=== PATIENT | female | born 1940 | race Caucasian/White ===

== ENCOUNTER → 2017-04-14 | Outpatient (REF) | payer MEDICARE ==
[~2017-04-14] MED LIST: AMI10 PO; AMIT-106 PO; AMLO-1 PO; AMLO-96 PO; CEPH250C11 PO; CRAN450C PO; CYAN1000 IJ; DEN60I SUBQ; DICY20TA96 PO; DOCU-416 PO; ESCI10TA8 PO; FLU45SYR17 IM; FLUO-202 PO; LEVO25TA61 PO; LEVO75TA73 PO; LEVO75TA76 PO; LOR5/325 PO; OLME5TAB8 PO; OXYB10TA21 PO; OXYB5TAB86 PO; OXYC-869 PO; OXYXL5 PO; PHEN200T32 PO; PNEU0.5D3 IM; PRAV20TA66 PO; PRAV80TA29 PO; PROL80 PO; SIMV-54 PO; SIMV5TAB56 PO; SUCR1TAB51 PO; TOLT4CAP13 PO; TRA50 GT; VALS160T20 PO; VALS1TAB4 PO; [UNRECOGNIZED DRUG - CODE] PO
== END ==
LOC: ZZSENDIN 15:27
PROVIDERS: ATTEND Family Medicine
DX: N18.3 Chronic kidney disease, stage 3 (moderate) (principal); R82.99 Other abnormal findings in urine
CPT/HCPCS: 81001; 87088

== ENCOUNTER → 2017-04-19 | Outpatient (CLI) | payer MEDICARE | LOC: LAB 13:06 | PROVIDERS: ATTEND Internal Medicine Nephrology | DX: N18.3 Chronic kidney disease, stage 3 (moderate) (principal) | CPT/HCPCS: 36415; 82310; 82374; 82435; 82565; 82947; 84132; 84295; 84520 ==

== ENCOUNTER → 2017-04-28 | Outpatient (CLI) | payer MEDICARE | LOC: LAB 11:57 | PROVIDERS: ATTEND Internal Medicine Nephrology | DX: N39.0 Urinary tract infection, site not specified (principal) | CPT/HCPCS: 81001 ==

== ENCOUNTER 2017-05-19 12:52 | Inpatient (IN) | payer MEDICARE ==
[~2017-05-19] VITALS: Ht 166.4 cm; Wt 83.5 kg
[2017-05-19] MEDS ORDERED: ALBUTEROL/IPRATROPIUM 3 ML NEB NEB ONE ×2 (13:05→14:25)
--- NOTE | 2017-05-19 13:14 | ER Report ---
History and Physical Time Seen By MD: 13:00 Hx. of Stated Complaint: PT HAVING TROUBLE BREATHING X3 DAYS, TAKING NEW MED FOR KIDNEYS, FATIGUED, CHILLS HPI/ROS CHIEF COMPLAINT: Fever cough shortness of breath HISTORY OF PRESENT ILLNESS: Patient is a 76-year-old female who was referred from [facility] for evaluation of fevers chills body aches for the past 3 days. 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 Her creatinine was 1. She was sent for further evaluation and possible CT scan if needed. Patient states that her primary symptoms are respiratory. She's noted increased work of breathing nonproductive cough bodyaches fevers and chills. Patient did have influenza screening testing that was done at [facility] and tested negative for influenza A and influenza B. REVIEW OF SYSTEMS: Constitutional: Fevers chills and body aches Eyes: No discharge. ENT: No sore throat. Cardiovascular: No chest pain, no palpitations. Respiratory: Cough, shortness of breath Gastrointestinal: No abdominal pain, no vomiting. Genitourinary: No hematuria. Musculoskeletal: No back pain. Skin: No rashes. Neurological: No headache. Allergies: Coded Allergies: codeine (Verified Allergy, Intermediate, HALLUCINATIONS, 11/27/15) adhesive tape (Verified Allergy, Mild, RASH, 01/05/15) ciprofloxacin (Verified Allergy, Unknown, 05/19/17) Home Meds Active Scripts Cyanocobalamin (Vitamin B-12) (CYANOCOBALAMIN INJECTION) 1,000 Mcg/1 Ml Vial, 1000 MCG IJ Q2WK, #2 VIAL 0 Refills Prov:ADAN CHASE MD 06/17/15 Simvastatin (SIMVASTATIN) 40 Mg Tablet, 40 MG PO HS, #90 TAB 1 Refill Prov:ADAN CHASE MD 04/06/15 Levothyroxine Sodium (LEVOTHYROXINE SODIUM) 25 Mcg Tablet, 1 TAB PO QDAY, #90 TAB 3 Refills Prov:ADAN CHASE MD 03/04/15 Reported Medications Carvedilol (CARVEDILOL) 3.125 Mg Tab, 3.125 MG PO BID, TAB 05/19/17 Fluoxetine Hcl (FLUOXETINE HCL) 20 Mg Capsule, 20 MG PO QDAY, CAPSULE 05/19/17 Oxybutynin Chloride (DITROPAN XL) 10 Mg Tab.er.24, 10 MG PO QDAY Y for URGENCY, #10 TAB 11/30/15 Cranberry Fruit Concentrate (CRANBERRY) 450 Mg Capsule, 2 TAB PO DAILY, CAPSULE 11/27/15 Valsartan/Hydrochlorothiazide (VALSARTAN-HCTZ 160-12.5 MG TAB) 1 Each Tablet, 1 EACH PO DAILY 12/24/14 Discontinued Reported Medications Lansoprazole (PREVACID) 30 Mg Capsule.dr, 30 MG PO QDAY, CAP 05/19/17 Phenazopyridine Hcl (PHENAZOPYRIDINE HCL) 200 Mg Tablet, 200 MG PO TID Y for PAIN, #20 TAB 11/30/15 Docusate Sodium (COLACE) 100 Mg Capsule, 100 MG PO BID, #30 CAPSULE 11/30/15 Hydrocodone Bit/Acetaminophen (HYDROCODON-ACETAMINOPHEN 5-325) 1 Each Tablet, 1- 2 EACH PO Q6H Y for PAIN, #20 TAB 11/30/15 Amitriptyline Hcl (AMITRIPTYLINE HCL) 25 Mg Tablet, 25 MG PO QHS, TAB 11/27/15 Escitalopram Oxalate (ESCITALOPRAM OXALATE) 10 Mg Tablet, 10 MG PO QDAY, TAB 11/27/15 Propranolol Hcl (PROPRANOLOL HCL) 80 Mg Capcr, 80 MG PO QDAY 11/27/15 Past Medical/Surgical History Past medical history for hypertension, history of "bladder tumor" history of incontinence. Hx Smoking: No Smoking Status: Never Smoker Hx Substance Use Disorder: No Hx Alcohol Use: Yes Constitutional Vital Sign - Last 24 Hours 05/19/17 05/19/17 05/19/17 05/19/17 12:58 12:58 13:07 13:12 Temp 98.5 Pulse 94 77 75 Resp 22 B/P (MAP) 148/81 148/81 (103) Pulse Ox 86 O2 Delivery Room Air 05/19/17 05/19/17 05/19/17 05/19/17 13:12 13:22 13:30 13:37 Pulse 73 78 Resp 13 22 B/P (MAP) 111/80 (90) Pulse Ox 96 80 94 O2 Delivery Nasal Cannula O2 Flow Rate 2.0 05/19/17 05/19/17 05/19/17 05/19/17 13:40 13:52 14:00 14:22 Pulse 73 78 Resp 18 17 B/P (MAP) 126/72 (90) Pulse Ox 95 95 O2 Flow Rate 2.0 05/19/17 05/19/17 05/19/17 05/19/17 14:30 14:32 14:35 14:35 Pulse 77 83 Resp 18 B/P (MAP) 104/76 (85) Pulse Ox 88 O2 Delivery Nasal Cannula O2 Flow Rate 2.0 05/19/17 05/19/17 05/19/17 05/19/17 14:36 14:36 14:37 14:52 Pulse 80 79 76 Resp 35 22 Pulse Ox 99 95 95 O2 Delivery Nasal Cannula O2 Flow Rate 2.0 05/19/17 05/19/17 05/19/17 05/19/17 15:00 15:07 15:15 15:15 Pulse ??? 85 Resp 18 20 B/P (MAP) ???/??? (5285) Pulse Ox 95 95 O2 Delivery Nasal Cannula O2 Flow Rate 2.0 05/19/17 05/19/17 15:16 15:16 Pulse 79 Resp 18 Pulse Ox 100 O2 Delivery Nasal Cannula O2 Flow Rate 2.0 Physical Exam General/Constitutional: Patient is awake, alert, nontoxic and in no acute respiratory distress. Head: Normocephalic and atraumatic. Eyes: Conjunctival clear, Pupils are equal and reactive to light. Extraocular muscles are intact and symmetrical. Sclera are clear and anicteric. Ears:External canals are clear. Tympanic membranes are clear with normal landmarks and light reflex. Nares: No rhinorrhea or bleeding. Turbinates are pink and moist. Oropharyngeal: Mucous membranes are moist. There is no pharyngeal erythema or exudate. There are no palatal petechiae. Uvula is midline and symmetrical. Neck: Supple, no adenopathy. Cardiovascular: Heart is regular rate and rhythm without audible murmurs, rubs or gallops. Pulmonary: Lungs are noted for decreased breath sounds throughout, prolonged expiratory phase, increased use of accessory muscles of respiration. Abdomen: Soft, nontender, no guarding or peritoneal signs. Extremities: No gross deformities, No peripheral cyanosis. Able to move all 4 extremities. Neuro: Alert and oriented X3, Skin: No rashes, skin is warm dry and well perfused. Medical Decision Making Data Points Result Diagram: 05/19/17 1350 05/19/17 1429 Laboratory Hematology Test 05/19/17 13:30 05/19/17 13:50 05/19/17 14:29 B-Type Natriuretic Peptide 148 pg/ml (0-100) Red Blood Count 3.97 M/uL (4.17-5.56) Mean Corpuscular Volume 91.7 fL (80.0-96.0) Mean Corpuscular Hemoglobin 31.0 pg (26.0-33.0) Mean Corpuscular Hemoglobin Concent 33.8 g/dL (32.0-36.0) Red Cell Distribution Width 15.2 % (11.5-14.5) Mean Platelet Volume 8.0 fL (7.2-11.1) Neutrophils (%) (Auto) 82.5 % (39.4-72.5) Lymphocytes (%) (Auto) 9.1 % (17.6-49.6) Monocytes (%) (Auto) 5.7 % (4.1-12.4) Eosinophils (%) (Auto) 2.4 % (0.4-6.7) Basophils (%) (Auto) 0.3 % (0.3-1.4) Nucleated RBC Relative Count (auto) 0.0 /100WBC Neutrophils # (Auto) 15.6 K/uL (2.0-7.4) Lymphocytes # (Auto) 1.7 K/uL (1.3-3.6) Monocytes # (Auto) 1.1 K/uL (0.3-1.0) Eosinophils # (Auto) 0.4 K/uL (0.0-0.5) Basophils # (Auto) 0.1 K/uL (0.0-0.1) Nucleated RBC Absolute Count (auto) 0.01 K/uL Peripheral Blood Smear Yes Y/N Sodium Level 134 mmol/L (137-145) Potassium Level 3.6 mmol/L (3.5-5.0) Chloride Level 98 mmol/L (98-107) Carbon Dioxide Level 23 mmol/L (22-31) Blood Urea Nitrogen 25 mg/dl (7-18) Creatinine 1.30 mg/dl (0.52-1.04) Glomerular Filtration Rate Calc 39.6 Random Glucose 80 mg/dl (75-110) Calcium Level 8.8 mg/dl (8.4-10.2) Total Bilirubin 0.6 mg/dl (0.2-1.3) Aspartate Amino Transf (AST/SGOT) 30 U/L (0-35) Alanine Aminotransferase (ALT/SGPT) 53 U/L (0-56) Alkaline Phosphatase 67 U/L (0-126) Troponin I 0.042 ng/ml Total Protein 6.7 gm/dl (6.3-8.2) Albumin 3.7 g/dl (3.5-5.0) Chemistry Test 05/19/17 13:30 05/19/17 13:50 05/19/17 14:29 B-Type Natriuretic Peptide 148 pg/ml (0-100) White Blood Count 18.9 k/uL (4.5-11.0) Red Blood Count 3.97 M/uL (4.17-5.56) Hemoglobin 12.3 g/dL (12.0-16.0) Hematocrit 36.4 % (34.0-47.0) Mean Corpuscular Volume 91.7 fL (80.0-96.0) Mean Corpuscular Hemoglobin 31.0 pg (26.0-33.0) Mean Corpuscular Hemoglobin Concent 33.8 g/dL (32.0-36.0) Red Cell Distribution Width 15.2 % (11.5-14.5) Platelet Count 223 K/uL (150-450) Mean Platelet Volume 8.0 fL (7.2-11.1) Neutrophils (%) (Auto) 82.5 % (39.4-72.5) Lymphocytes (%) (Auto) 9.1 % (17.6-49.6) Monocytes (%) (Auto) 5.7 % (4.1-12.4) Eosinophils (%) (Auto) 2.4 % (0.4-6.7) Basophils (%) (Auto) 0.3 % (0.3-1.4) Nucleated RBC Relative Count (auto) 0.0 /100WBC Neutrophils # (Auto) 15.6 K/uL (2.0-7.4) Lymphocytes # (Auto) 1.7 K/uL (1.3-3.6) Monocytes # (Auto) 1.1 K/uL (0.3-1.0) Eosinophils # (Auto) 0.4 K/uL (0.0-0.5) Basophils # (Auto) 0.1 K/uL (0.0-0.1) Nucleated RBC Absolute Count (auto) 0.01 K/uL Peripheral Blood Smear Yes Y/N Glomerular Filtration Rate Calc 39.6 Calcium Level 8.8 mg/dl (8.4-10.2) Total Bilirubin 0.6 mg/dl (0.2-1.3) Aspartate Amino Transf (AST/SGOT) 30 U/L (0-35) Alanine Aminotransferase (ALT/SGPT) 53 U/L (0-56) Alkaline Phosphatase 67 U/L (0-126) Troponin I 0.042 ng/ml Total Protein 6.7 gm/dl (6.3-8.2) Albumin 3.7 g/dl (3.5-5.0) EKG/Imaging EKG Interpretation EKG shows a normal sinus rhythm with ventricular rate of [address] segment and T-wave abnormalities inferior laterally , EKG was compared to one from November 262015 there is essentially no change, ST segment depression of was seen at that time as well. Stress Lexiscan was performed on 04/28/2016. She had minimal symptoms with confusion. EKG did not show any significant change she does have some nonspecific ST findings in the inferior leads at baseline Monitor Interpretation: Normal Sinus Rhythm ED Course/Re-evaluation Clinical Indication for ER IV: IV Access ED Course 05/19/2017 1:39:46 pm plan at this time will be to perform a cardiac workup including troponin and BNP, we'll also obtain chest x-ray. Decision to Disposition Date: May 19, 2017 Decision to Disposition Time: 15:29 Depart Departure Latest Vital Signs Vital Signs Date Time Temp Pulse Resp B/P (MAP) Pulse Ox O2 Delivery O2 Flow Rate FiO2 05/19/17 15:16 100 Nasal Cannula 2.0 05/19/17 15:16 79 18 05/19/17 15:00 ???/??? (1665) 05/19/17 12:58 98.5 Impression: Primary Impression: Pneumonia Condition: Improved Disposition: Admitted from ER (to [facility]fe[facility]) Referrals: ELVIE FORTE DO (PCP) Problem Qualifiers Primary Impression: Pneumonia Pneumonia type: due to unspecified organism Laterality: unspecified laterality Lung location: unspecified part of lung Qualified Codes: J18.9 - Pneumonia, unspecified organism VIVIANA CASEY MD May 19, 2017 13:14
[2017-05-19] MEDS ORDERED: FLUO-177 PO (13:41)
[2017-05-19] MEDS ORDERED: CAR3.125 PO (13:42)
[2017-05-19] MEDS ORDERED: LAN30PT PO (13:43)
--- NOTE | 2017-05-19 13:52 | EKG ---
FACILITY: [facility] - [place] PATIENT NAME: SHARMILA WEBSTER : [id number] MR: [id number] V: [id number] EXAM DATE: ORDERING PHYSICIAN: VIVIANA CASEY TECHNOLOGIST: Santos Temple Reason : Blood Pressure : / mmHG Vent. Rate : 082 BPM Atrial Rate : 082 BPM P-R Int : 120 ms QRS Dur : 074 ms QT Int : 368 ms P-R-T Axes : 068 046 015 degrees QTc Int : 429 ms Normal sinus rhythm ST and T wave abnormality, consider inferior ischemia Abnormal ECG Confirmed by BK KNAPP ([id number]) on 05/19/2017 4:52:12 PM Referred By: Confirmed By:BK KNAPP
[2017-05-19 14:10] LABS: PLATELET COUNT, AUTOMATED 223 K/uL (150-450)
--- NOTE | 2017-05-19 14:52 | RADIOLOGY IMAGING REPORT ---
FACILITY: [facility] - [place] PATIENT NAME: Emmie Schwab : 1940 MR: [id number] V: [id number] EXAM DATE: ORDERING PHYSICIAN: VIVIANA CASEY TECHNOLOGIST: Location: [facility] Patient: Emmie Schwab : 1940 Visit/Account:[id number] Date of Sevice: 05/19/2017 2 VIEWS CHEST INDICATION: Cough, low oxygen, respiratory distress. COMPARISON: 05/13/2013. FINDINGS: Cardiomediastinal silhouette and pulmonary vessels within normal limits. There is no focal infiltrate or lobar consolidation. There is no pneumothorax or pleural effusion. No nodule. Chronic interstitial changes. Scarring seen left lower lobe. Upper abdomen is unremarkable. No acute bony abnormality. IMPRESSION: 1. No acute cardiopulmonary process. Report Dictated By: Uli Huffman at 05/19/2017 2:40 PM Report E-Signed By: Uli Huffman at 05/19/2017 2:47 PM WSN:[id number]
[2017-05-19] MEDS ORDERED: NS(*) 0.9% 500 ML BAG 500 ML IV ONE (15:00)
[2017-05-19] MEDS ORDERED: ALBUTEROL 2.5 MG/3 ML NEB NEB ONE (15:10)
[2017-05-19] MEDS ORDERED: methylPREDNIS SUCC 125 MG/2ML IVP ONE (15:10)
[2017-05-19] MEDS ORDERED: cefTRIAXone 1 GM VIAL IVP ONE (15:10)
[2017-05-19] MEDS ORDERED: AZITHROMYCIN(*) 500 MG 500 MG in NS(*) 0.9% 250 ML BAG 250 ML IVPB ONE ×2 (15:10→16:15)
[2017-05-19 16:37] VITALS: BP 125/97
[2017-05-19] MEDS ORDERED: NS(*) 0.9% 1000 ML BAG 1,000 ML IV PRN (18:22)
--- NOTE | 2017-05-19 18:53 | History & Physical ---
History of Present Illness Chief Complaint Cough and fever History of Present Illness This patient presented to the emergency room with complaints of cough, fever, and shortness of breath. She reports having respiratory symptoms on and off since Prabha, but that she became much worse over the last 24hrs. History Problems: (1) Essential hypertension (2) Hypothyroidism Status: Chronic (3) Atrophy of left kidney Status: Chronic (4) CKD (chronic kidney disease) stage 3, GFR 30-59 ml/min Status: Chronic (5) Urinary incontinence Status: Chronic (6) Hyperlipidemia Status: Chronic Home Meds Active Scripts Cyanocobalamin (Vitamin B-12) (CYANOCOBALAMIN INJECTION) 1,000 Mcg/1 Ml Vial, 1000 MCG IJ Q2WK, #2 VIAL 0 Refills Prov:ADAN CHASE MD 06/17/15 Simvastatin (SIMVASTATIN) 40 Mg Tablet, 40 MG PO HS, #90 TAB 1 Refill Prov:ADAN CHASE MD 04/06/15 Levothyroxine Sodium (LEVOTHYROXINE SODIUM) 25 Mcg Tablet, 1 TAB PO QDAY, #90 TAB 3 Refills Prov:ADAN CHASE MD 03/04/15 Reported Medications Carvedilol (CARVEDILOL) 3.125 Mg Tab, 3.125 MG PO BID, TAB 05/19/17 Fluoxetine Hcl (FLUOXETINE HCL) 20 Mg Capsule, 20 MG PO QDAY, CAPSULE 05/19/17 Oxybutynin Chloride (DITROPAN XL) 10 Mg Tab.er.24, 10 MG PO QDAY Y for URGENCY, #10 TAB 11/30/15 Cranberry Fruit Concentrate (CRANBERRY) 450 Mg Capsule, 2 TAB PO DAILY, CAPSULE 11/27/15 Valsartan/Hydrochlorothiazide (VALSARTAN-HCTZ 160-12.5 MG TAB) 1 Each Tablet, 1 EACH PO DAILY 12/24/14 Discontinued Reported Medications Lansoprazole (PREVACID) 30 Mg Capsule.dr, 30 MG PO QDAY, CAP 05/19/17 Phenazopyridine Hcl (PHENAZOPYRIDINE HCL) 200 Mg Tablet, 200 MG PO TID Y for PAIN, #20 TAB 11/30/15 Docusate Sodium (COLACE) 100 Mg Capsule, 100 MG PO BID, #30 CAPSULE 11/30/15 Hydrocodone Bit/Acetaminophen (HYDROCODON-ACETAMINOPHEN 5-325) 1 Each Tablet, 1- 2 EACH PO Q6H Y for PAIN, #20 TAB 11/30/15 Amitriptyline Hcl (AMITRIPTYLINE HCL) 25 Mg Tablet, 25 MG PO QHS, TAB 11/27/15 Escitalopram Oxalate (ESCITALOPRAM OXALATE) 10 Mg Tablet, 10 MG PO QDAY, TAB 11/27/15 Propranolol Hcl (PROPRANOLOL HCL) 80 Mg Capcr, 80 MG PO QDAY 11/27/15 Allergies: Coded Allergies: codeine (Verified Allergy, Intermediate, HALLUCINATIONS, 11/27/15) adhesive tape (Verified Allergy, Mild, RASH, 01/05/15) ciprofloxacin (Verified Allergy, Unknown, 05/19/17) Patient History: FH: COPD (chronic obstructive pulmonary disease) MOTHER, , Age:89 FH: diabetes mellitus FATHER, , Age:81 FH: heart disease FATHER, , Age:81 MOTHER, , Age:89 Hx Smoking: No Smoking Status: Never Smoker Caffeine/Cups Per Day: 0 Hx Alcohol Use: Yes Hx Substance Use Disorder: No Social Drug Use: Never Review of Systems All Systems Reviewed/Normal: Yes, Except as Noted Constitutional: Fever Respiratory: Shortness of Breath, Cough Exam Vital Signs Vital Signs Date Time Temp Pulse Resp B/P (MAP) Pulse Ox O2 Delivery O2 Flow Rate FiO2 05/19/17 16:45 94 Nasal Cannula 2.0 05/19/17 16:37 98.3 101 18 125/97 (106) Neuro: No Gross deficits Eyes: PERRLA Cardiovascular: Regular Rate and Rhythm Respiratory: Clear to Auscultation Extremities: No Edema Integumentary: No Cyanosis Medical Decision Making Data Points Result Diagram: 05/19/17 1350 05/19/17 1429 EKG / Imaging Imaging Chest x-ray reviewed. Assessment and Plan Problems: (1) Bacterial pneumonia Assessment & Plan: She did present with fever, cough, and shortness of breath. She also has an elevated WBC. Her initial chest x-ray did not show an infiltrate. We have started her on empiric treatment with ceftriaxone and azithromycin. We will repeat a chest x-ray in the morning. We may consider stopping antibiotics if her x-ray continues to be normal. Cultures are also pending. (2) Essential hypertension Assessment & Plan: She is on chronic treatment with carvedilol, valsartan, and hydrochlorothiazide. The carvedilol has been ordered, but the other medications are currently on hold. (3) CKD (chronic kidney disease) stage 3, GFR 30-59 ml/min Status: Chronic (4) Urinary incontinence Status: Chronic Assessment & Plan: She is followed by Dr. Hernández for this. (5) Hypothyroidism Status: Chronic Assessment & Plan: She is on chronic treatment with Synthroid. (6) Hyperlipidemia Status: Chronic Assessment & Plan: She is on chronic treatment with simvastatin. Venous Thromboembolism Antithrombotics Is Pt On Any Antithrombotics?: No Exam Sepsis Risk: Sepsis Risk BK KNAPP DO May 19, 2017 18:53
[2017-05-19 18:57] VITALS: BP 113/72
[2017-05-19] MEDS: SIMVASTATIN 40 MG TAB PO SCH (21:04)
[2017-05-19] MEDS: CARVEDILOL 3.125 MG TAB PO SCH (21:05)
[2017-05-19] MEDS: OXYBUTYNIN CHL XL 5 MG TABCR PO PRN (21:05)
[2017-05-19 22:14] VITALS: BP 133/66
[2017-05-20] MEDS: ACETAMINOPHEN 500 MG TAB PO PRN ×2 (00:10→20:00)
[2017-05-20] MEDS: LEVOTHYROXINE SOD 0.025 MG TAB PO SCH (05:22)
[2017-05-20 05:37] LABS: PLATELET COUNT, AUTOMATED 195 K/uL (150-450)
--- NOTE | 2017-05-20 06:39 | RADIOLOGY IMAGING REPORT ---
FACILITY: [facility] - [place] PATIENT NAME: Emmie Schwab : 1940 MR: [id number] V: [id number] EXAM DATE: ORDERING PHYSICIAN: BK KNAPP TECHNOLOGIST: Location: [facility] - [place] Patient: Emmie Schwab : 1940 Visit/Account:[id number] Date of Sevice: 05/20/2017 PORTABLE CHEST: Indication: Pneumonia. Technique: A single frontal film was obtained. Comparison: 05/19/2017 Skeletal and soft tissue structures: Intact and unchanged. Heart and mediastinum: Stable. Lung [place]: Well-expanded. No parenchymal consolidation or volume loss is identified. There are some chronic linear opacities at the bases. Pleural spaces: No evidence of effusion or pneumothorax. Impression: No evidence of parenchymal consolidation or volume loss. No significant change. Report Dictated By: Charlie Rowan MD at 05/20/2017 6:34 AM Report E-Signed By: Charlie Rowan MD at 05/20/2017 6:36 AM WSN:[id number]
[2017-05-20 08:01] VITALS: BP 138/77
[2017-05-20] MEDS: CARVEDILOL 3.125 MG TAB PO SCH ×2 (09:13→20:37)
[2017-05-20] MEDS: FLUoxetine HCL 20 MG CAP PO SCH (09:13)
--- NOTE | 2017-05-20 10:01 | Hospitalist Progress Note ---
Subjective Progress Notes Subjective The patient states she is weak. She lives in a trilevel and has to maneuver stairs to get from her bedroom to the main living area. Physical Exam Vital Signs Date Time Temp Pulse Resp B/P (MAP) Pulse Ox O2 Delivery O2 Flow Rate FiO2 05/20/17 08:04 89 05/20/17 08:01 98.5 72 16 138/77 (97) Nasal Cannula 1.0 Intake and Output 05/21/17 07:00 Intake Total 240 ml Output Total 250 ml Balance -10 ml Intake Oral 240 ml Output Urine Total 250 ml General Appearance: Alert, Awake, No Acute Distress, Afebrile Neuro: No Gross deficits Eyes: PERRLA ENT: Moist Mucous Membranes Neck: No Masses Cardiovascular: Regular Rate and Rhythm Respiratory: Other (Diminished BS throughout with occasionally wheeze.) GI: Soft and Non-Tender Extremities: Warm, Perfused Integumentary: Generalized Fragile Skin Psych: Appropriate Mood & Affect Result Diagram: 05/20/1751705/20/17517 Monitor Interpretation: Normal Sinus Rhythm Assessment and Plan Problems: (1) Bacterial pneumonia Assessment & Plan: She did present with fever, cough, and shortness of breath. She also had an elevated WBC. Her initial chest x-ray did not show an infiltrate. Repeat CXR today is also negative. She was started on empiric treatment with ceftriaxone and azithromycin. We may consider stopping antibiotics if her x-ray continues to be normal. Urine and blood cultures are also pending. (2) Essential hypertension Assessment & Plan: She is on chronic treatment with carvedilol, valsartan, and hydrochlorothiazide. The carvedilol has been ordered, but the other medications are currently on hold. (3) CKD (chronic kidney disease) stage 3, GFR 30-59 ml/min Status: Chronic (4) Urinary incontinence Status: Chronic Assessment & Plan: She is followed by Dr. Hernández for this. (5) Hematuria Status: Acute Assessment & Plan: The patient states she saw Dr. Pulido the day of admission with complaints of hematuria. She has a history of bladder tumor and is followed by Dr. Hernández. She did have an in-office cystoscopy done by Dr. Hernández on MondayMay 16 for follow up. She also has a history of UTI. She did not have a UA on admission. Will order cath UA and culture (has already been on Rocephin) today. It appears her last culture from the end of 2017 grew a pansensitive E. coli. (6) Hypothyroidism Status: Chronic Assessment & Plan: She is on chronic treatment with Synthroid. (7) Hyperlipidemia Status: Chronic Assessment & Plan: She is on chronic treatment with simvastatin. Time Spent on Plan of Care: < 30 min Exam Sepsis Risk: No Definite Risk SHELBY ADAMES MD May 20, 2017 10:01
[2017-05-20] MEDS: ALBUTEROL 1.25 MG/3ML NEB NEB SCH ×2 (10:06→17:23)
[2017-05-20] MEDS: methylPREDNIS SUCC 125 MG/2ML IVP SCH ×2 (10:51→18:18)
[2017-05-20 11:36] VITALS: Ht 166.4 cm; Wt 83.5 kg
[2017-05-20 14:47] VITALS: BP 125/71
[2017-05-20] MEDS: cefTRIAXone 2 GM VIAL IVP SCH (14:48)
--- NOTE | 2017-05-20 14:52 | Miscellaneous Provider Note ---
Miscellaneous Provider Note Note Added albuterol treatments and Solu Medrol. Patient much improved with respiratory status. PT evaluated and is recommending short term subacute rehab. They will reassess Monday. The patient has been having chronic chest tightness and wheezing. Her symptoms are persistent and not intermittent. She has a history of asthma. She has not been on treatment for this. She would benefit from a long acting bronchodilator/steroid combination with a rescue inhaler. Also consider pulmonary consultation. SHELBY ADAMES MD May 20, 2017 14:52
--- NOTE | 2017-05-20 15:52 | Antimicrobial Stewardship ---
Antimicrobial Stewardship MD Service: Hospitalist Indications: CAP Antimicrobial Allergies Ciprofloxacin, codeine Antimicrobial History Empiric treatment with Zithromax 500 mg IV and Rocephin 2 gm IV daily. Patient admitted with cough, elevated WBC but negative chest xray. Repeat chest xray negative as well. Duration of Therapy: 5 Days Start Date: May 19, 2017 Height (Calculated Centimeters: 166.022091 Weight (Calculated Kilograms): 83.461 Culture Results: No (No growth so far.) Received >24 hr of IV Abx: No Afebrile > 24 hrs: Yes Heart Rate < or = 90 bpm: Yes RR < or = 20 bpm: Yes SBP > or = 90 mm Hg: Yes Improving WBC and Differential: Yes Improving Signs and Symptoms: Yes Eligable for PO Conversion: Yes (May consider switching to PO tomorrow or discontinuing if chest xray stays normal.) MANUEL SWAIN May 20, 2017 15:52
[2017-05-20] MEDS: AZITHROMYCIN(*) 500 MG 500 MG in NS(*) 0.9% 250 ML BAG 250 ML IVPB SCH (16:28)
[2017-05-20 19:31] VITALS: BP 124/97
[2017-05-20] MEDS: OXYBUTYNIN CHL XL 5 MG TABCR PO PRN (20:37)
[2017-05-20] MEDS: SIMVASTATIN 40 MG TAB PO SCH (20:37)
[2017-05-21] MEDS: methylPREDNIS SUCC 125 MG/2ML IVP SCH (01:40)
[2017-05-21 03:59] VITALS: BP 140/61
[2017-05-21] MEDS: LEVOTHYROXINE SOD 0.025 MG TAB PO SCH (05:19)
[2017-05-21 05:34] LABS: PLATELET COUNT, AUTOMATED 211 K/uL (150-450)
[2017-05-21] MEDS: ALBUTEROL 1.25 MG/3ML NEB NEB SCH ×3 (06:00→18:23)
[2017-05-21 07:44] VITALS: BP 129/68
[2017-05-21] MEDS: FLUoxetine HCL 20 MG CAP PO SCH (08:24)
[2017-05-21] MEDS: CARVEDILOL 3.125 MG TAB PO SCH ×2 (08:24→20:56)
[2017-05-21] MEDS ORDERED: INFLUENZA VIRUS VAC 0.5 ML SYR IM ONLY ONE (09:00)
[2017-05-21] MEDS: SALMETEROL/FLUTIC 250/50 1 INH INH SCH ×2 (09:30→18:23)
--- NOTE | 2017-05-21 09:43 | Hospitalist Progress Note ---
Subjective Progress Notes Subjective She reports some improvement with her breathing. No concerns from overnight staff. Physical Exam Vital Signs Date Time Temp Pulse Resp B/P (MAP) Pulse Ox O2 Delivery O2 Flow Rate FiO2 05/21/17 07:53 94 Room Air 05/21/17 07:44 98.2 72 16 129/68 (88) 2.0 Intake and Output 05/22/17 07:00 Intake Total 120 ml Balance 120 ml Intake Oral 120 ml General Appearance: Alert, Awake, No Acute Distress Respiratory: Other (Clear with intermittent trace exp wheezing bilaterally. Moving air well to the bases.) Extremities: No Edema Integumentary: No Jaundice, No Cyanosis Result Diagram: 05/21/1752205/21/17522 Monitor Interpretation: Normal Sinus Rhythm Assessment and Plan Problems: (1) Bacterial pneumonia Status: Acute Assessment & Plan: She did present with fever, cough, and shortness of breath. She also had an elevated WBC. Her initial chest x-ray did not show an infiltrate. Repeat CXR is also negative. She was started on empiric treatment with ceftriaxone and azithromycin. We may consider stopping antibiotics if her x -ray continues to be normal. Urine and blood cultures are also pending. (2) Asthma exacerbation Status: Acute Assessment & Plan: The patient gives a history of progressive ORO that has worsened over the years and family noting that she wheezes. She never smoked, but grew up with smokers. She was started on IV steroids and her wheezing has significantly improved. Will switch to oral prednisone and start Advair. (3) Weakness Status: Acute Assessment & Plan: Secondary to above. She is being seen by PT who recommend short term subacute rehab, [facility]. (4) Essential hypertension Assessment & Plan: She is on chronic treatment with carvedilol, valsartan, and hydrochlorothiazide. The carvedilol has been ordered, but the other medications are currently on hold. (5) CKD (chronic kidney disease) stage 3, GFR 30-59 ml/min Status: Chronic (6) Urinary incontinence Status: Chronic Assessment & Plan: She is followed by Dr. Hernández for this. (7) Hematuria Status: Resolved Assessment & Plan: The patient states she saw Dr. Pulido the day of admission with complaints of hematuria. She has a history of bladder tumor and is followed by Dr. Hernández. She did have an in-office cystoscopy done by Dr. Hernández on MondayMay 16 for follow up. She also has a history of UTI. UA done 05/21 showed no RBC. (8) Hypothyroidism Status: Chronic Assessment & Plan: She is on chronic treatment with Synthroid. (9) Hyperlipidemia Status: Chronic Assessment & Plan: She is on chronic treatment with simvastatin. Exam Sepsis Risk: No Definite Risk SARAH HERNANDEZ MD May 21, 2017 09:43
[2017-05-21] MEDS: predniSONE 20 MG TAB PO SCH (09:45)
[2017-05-21] MEDS: cefTRIAXone 2 GM VIAL IVP SCH (16:05)
[2017-05-21 16:48] VITALS: BP 126/81
[2017-05-21] MEDS: AZITHROMYCIN(*) 500 MG 500 MG in NS(*) 0.9% 250 ML BAG 250 ML IVPB SCH (16:50)
[2017-05-21 20:51] VITALS: BP 116/77
[2017-05-21] MEDS: SIMVASTATIN 40 MG TAB PO SCH (20:56)
[2017-05-21] MEDS: OXYBUTYNIN CHL XL 5 MG TABCR PO PRN (20:56)
[2017-05-22] MEDS: ALBUTEROL 1.25 MG/3ML NEB NEB SCH ×2 (05:40→11:08)
[2017-05-22] MEDS: SALMETEROL/FLUTIC 250/50 1 INH INH SCH (05:40)
[2017-05-22] MEDS: LEVOTHYROXINE SOD 0.025 MG TAB PO SCH (07:48)
[2017-05-22 07:58] VITALS: BP 125/93
[2017-05-22] MEDS: CARVEDILOL 3.125 MG TAB PO SCH (09:29)
[2017-05-22] MEDS: FLUoxetine HCL 20 MG CAP PO SCH (09:29)
[2017-05-22] MEDS: predniSONE 20 MG TAB PO SCH (09:30)
--- NOTE | 2017-05-22 09:42 | Antimicrobial Stewardship ---
Antimicrobial Stewardship MD Service: Hospitalist Indications: Other (COPD exacerbation/bronchitis) Antimicrobial Allergies quinolones (cipro listed) Antimicrobial Used Azithromycin and Ceftriaxone started 05/20-- complete a total of 5 days Duration of Therapy: 5 Days Start Date: May 20, 2017 Height (Calculated Centimeters: 166.418315 Weight (Calculated Kilograms): 83.461 Creatinine Cl CrCl ~45ml/min Culture Results: Yes Recommendations re: Culture Blood Cx x 2 (- NGTD), Urine Cx (- NGTD) Patient Improving Clinically: Yes Tolerating Oral Fluids: Yes Able to Absorb PO Meds: Yes Received >24 hr of IV Abx: Yes Afebrile > 24 hrs: Yes Hemodynamically Stable: Yes Eligable for PO Conversion: Yes Convert to Switch to azithromycin monotherapy 500mg po daily x 5 days Comments 76 yo F who presented with cough, leukocytosis (WBC = 18.9), fever and SOB. Chest xray did not show an infiltrate, may be bronchitis or COPD exacerbation ( dad was a smoker). Continue: Azithromycin 500mg po daily x 3 days - Discontinue azithromycin after the dose is given on the . Raquel Coy, PharmD, BCOP RAQUEL COY May 22, 2017 09:42
[2017-05-22] MEDS ORDERED: CEFDINIR 300 MG CAP PO SCH (10:00)
--- NOTE | 2017-05-22 10:45 | Hospitalist Progress Note ---
Subjective Progress Notes Subjective She reports generally improving, but still some weakness, cough, dyspnea. Physical Exam Vital Signs Date Time Temp Pulse Resp B/P (MAP) Pulse Ox O2 Delivery O2 Flow Rate FiO2 05/22/17 08:44 Nasal Cannula 05/22/17 07:59 94 2.0 05/22/17 07:58 96.7 66 16 125/93 (104) General Appearance: Alert, Awake Cardiovascular: Regular Rate and Rhythm Respiratory: Clear to Auscultation (diminished breath sounds bilaterally) Extremities: Warm, Perfused Result Diagram: 05/21/1752205/21/17522 Assessment and Plan Problems: (1) Bacterial pneumonia Status: Acute Assessment & Plan: She did present with fever, cough, and shortness of breath. She also had an elevated WBC. Her initial chest x-ray did not show an infiltrate. Repeat CXR is also negative. She was started on empiric treatment with ceftriaxone and azithromycin. Urine and blood cultures are also negative. She may have a bacterial bronchitis. Clinically, she is showing some slow improvements. Will now transition to oral antibiotics. (2) Asthma exacerbation Status: Acute Assessment & Plan: The patient gives a history of progressive ORO that has worsened over the years and family noting that she wheezes. She never smoked, but grew up with smokers. She was started on IV steroids and her wheezing has significantly improved. She is now on oral prednisone and we have started Advair. (3) Weakness Status: Acute Assessment & Plan: Secondary to above. She is being seen by PT who recommend short term subacute rehab, so will see if she can go to [facility]. (4) Essential hypertension Assessment & Plan: She is on chronic treatment with carvedilol, valsartan, and hydrochlorothiazide. The carvedilol has been ordered, but the other medications are currently on hold. (5) CKD (chronic kidney disease) stage 3, GFR 30-59 ml/min Status: Chronic Assessment & Plan: Creatinine is stable at 1.1. (6) Urinary incontinence Status: Chronic Assessment & Plan: She is followed by Dr. Hernández for this. (7) Hematuria Status: Resolved Assessment & Plan: The patient states she saw Dr. Pulido the day of admission with complaints of hematuria. She has a history of bladder tumor and is followed by Dr. Hernández. She did have an in-office cystoscopy done by Dr. Hernández on MondayMay 16 for follow up. She also has a history of UTI. UA done 05/21 showed no RBC. (8) Hypothyroidism Status: Chronic Assessment & Plan: She is on chronic treatment with Synthroid. (9) Hyperlipidemia Status: Chronic Assessment & Plan: She is on chronic treatment with simvastatin. Exam Sepsis Risk: No Definite Risk OSVALDO ADAMES MD May 22, 2017 10:45
[2017-05-22 11:26] VITALS: BP 161/95
--- NOTE | 2017-05-22 11:51 | Medical Nutrition Therapy ---
Nutrition Anthropometrics Height (Inches): 65.50 Height (Calculated Centimeters: 166.010224 Weight (Pounds): 184 Weight (Calculated Kilograms): 83.461 BMI Calculated: 30.15 Saroj Nutrition Score: Adequate Saroj Nutrition Risk Score: 17 Dietary Referral Nutrition Risk Factors: Nutrition Risk Comment: Physical Findings Physical Appearance: Obese BMI 30-39 Skin Appearance Skin Appearance: Edema Edema Location Modifier: Edema Location: Type of Edema: Degree of Edema: Gastrointestinal Symptoms GI Symtoms: Appetite Changes Tube Present: Bowel Sounds: Recent Bowel Pattern: Diarrhea Stool Characteristics: Liquid, Loose Nutritional Diagnosis Nutritional Risk Acuity 3: Fair Appetite Past Medical History: HTN, hypothyroidism, atrophy left kidney, CKD-Stage 3, urinary incontinence, asthma exacerbation Nutritional Acuity: 3-Mild Energy Requirement: 1707 ([address] [place] AF 1.3) Protein Requirement: 67 (.8g/kg) Fluid Requirement: 2085 (mL/kg) Diet Type: Regular Nutrition Intervention: Cont diet as ordered, Encourage intake Nutrition Monitoring & Eval Nutrition Goals: Eat 50-100% Meal RD Patient Assessment Time: [address] Assessment Type: RD Assessment Patient Nutrition Acuity: 3-Mild Follow Up Date: May 27, 2017 Nutritional Comment: 05/20) Pt admitted with cough, fever and shortness of breath.DX bacterial pneumonia Hx: HTN,hypothyroidism, atrophy left kidney, CKD- stage 3. 05/20) Na 135, BUN 21, Glu 164 Regular diet po intake 75% x 1 meal 05/22) Pt. reports improved breathing. Labs: 05/21) Na 135, BUN 24, Cre 1.10, Glu 196 po intake is 68% x 7 meals. Will monitor labs, po intake, weight Pt. may benefit from diabetic diet. NURIS LEVIN May 22, 2017 10:46
--- NOTE | 2017-05-22 14:36 | Hospitalist Depart ---
Discharge Summary Reason for Hosp/Final Diag: (1) Bacterial pneumonia Status: Acute Hospital Course & Plan: She did present with fever, cough, and shortness of breath. She also had an elevated WBC. Her initial chest x-ray did not show an infiltrate. Repeat CXR is also negative. She was started on empiric treatment with ceftriaxone and azithromycin. Urine and blood cultures are also negative. She may have a bacterial bronchitis. Clinically, she is showing some slow improvements. She was transitioned to oral antibiotics to complete a full course of therapy. (2) Asthma exacerbation Status: Acute Hospital Course & Plan: The patient gives a history of progressive dyspnea on exertion that has worsened over the years. Her family also noted that she wheezes. She never smoked, but grew up with smokers. She was started on IV steroids and her wheezing has significantly improved. She is now on oral prednisone and we have started Advair. (3) Weakness Status: Acute Hospital Course & Plan: Secondary to above. She is being seen by PT who recommend short term subacute rehabilitation. Thus, arrangements were made for transfer to [facility]. (4) Essential hypertension Hospital Course & Plan: She is on chronic treatment with carvedilol, valsartan , and hydrochlorothiazide. The carvedilol has been ordered, but the other medications are currently on hold. (5) CKD (chronic kidney disease) stage 3, GFR 30-59 ml/min Status: Chronic Hospital Course & Plan: Creatinine is stable at 1.1. (6) Urinary incontinence Status: Chronic Hospital Course & Plan: She is followed by Dr. Hernández for this. (7) Hematuria Status: Resolved Hospital Course & Plan: The patient states she saw Dr. Pulido the day of admission with complaints of hematuria. She has a history of bladder tumor and is followed by Dr. Hernández. She did have an in-office cystoscopy done by Dr. Hernández on MondayMay 16 for follow up. She also has a history of UTI. UA done 05/21 showed no RBC. (8) Hypothyroidism Status: Chronic Hospital Course & Plan: She is on chronic treatment with Synthroid. (9) Hyperlipidemia Status: Chronic Hospital Course & Plan: She is on chronic treatment with simvastatin. Departure Weight (Pounds): 184 Result Diagram: 05/21/1752205/21/17 05 Item Value Date Time White Blood Count 18.9 k/uL H 05/19/17 1350 Hemoglobin 12.3 g/dL 05/19/17 1350 Hematocrit 36.4 % 05/19/17 1350 Platelet Count 223 K/uL 05/19/17 1350 Sodium Level 134 mmol/L L 05/19/17 1429 Potassium Level 3.6 mmol/L 05/19/17 1429 Chloride Level 98 mmol/L 05/19/17 1429 Carbon Dioxide Level 23 mmol/L 05/19/17 1429 Blood Urea Nitrogen 25 mg/dl H 05/19/17 1429 Creatinine 1.30 mg/dl H 05/19/17 1429 Glomerular Filtration Rate Calc 39.6 05/19/17 1429 Random Glucose 80 mg/dl 05/19/17 1429 Calcium Level 8.8 mg/dl 05/19/17 1429 Total Bilirubin 0.6 mg/dl 05/19/17 1429 Aspartate Amino Transf (AST/SGOT) 30 U/L 05/19/17 1429 Alanine Aminotransferase (ALT/SGPT) 53 U/L 05/19/17 1429 Alkaline Phosphatase 67 U/L 05/19/17 1429 Total Protein 6.7 gm/dl 05/19/17 1429 Albumin 3.7 g/dl 05/19/17 1429 Troponin I 0.042 ng/ml 05/19/17 1429 B-Type Natriuretic Peptide 148 pg/ml H 05/19/17 1330 Urine Color Yellow 05/20/17 0943 Urine Clarity Clear 05/20/17 0943 Urine pH 6.0 pH 05/20/17 0943 Urine Specific Elton 1.014 05/20/17 0943 Urine Protein Negative mg/dL 05/20/17 0943 Urine Glucose (UA) 50 mg/dL H 05/20/17 0943 Urine Blood Negative 05/20/17 0943 Urine Ketones Negative mg/dL 05/20/17 0943 Urine Nitrite Negative 05/20/17 0943 Urine Bilirubin Negative 05/20/17 0943 Urine Urobilinogen Negative mg/dL 05/20/17 0943 Urine Leukocyte Esterase Negative 05/20/17 0943 Urine RBC <1 /HPF 05/20/17 0943 Urine WBC None /HPF 05/20/17 0943 Urine Squamous Epithelial Cells None /LPF 05/20/17 0943 Urine Bacteria Negative /HPF 05/20/17 0943 Urine Mucus None /HPF 05/20/17 0943 [facility] *LIVE* [address] [place] [address] SUMANTH FISCHER M.D., DIRECTOR OF LABORATORY SERVICES VENKATA ZUÑIGA M.D., PATHOLOGIST RUN DATE: 05/22/17 Specimen Inquiry Report PAGE 1 RUN TIME: 1000 PATIENT: SHARMILA SCHWAB ACCT: [id number] LOC: [facility] U : [id number] AGE/SX: 76/F ROOM: [facility] REG : 05/19/[address]: BK KNAPP DO : 1940 BED: 271 DIS : STATUS: ADM IN TLOC: SPEC #: [id number] ISRAEL: 05/19/17 STATUS: RES REQ #: [id number] RECD: 05/19/[address] [facility] [address]: VIVIANA CASEY MD SOURCE: BLOOD ENTR: 05/19/17-[address] [facility] [address]: ELVIE FORTE DO [facility]: ORDERED: CULT BLOOD Procedure Result Verified BLOOD CULTURE Preliminary 05/22/17-1000 NO GROWTH AFTER 3 DAYS, REINCUBATED [facility] *LIVE* [address] [place] [address] SUMANTH FISCHER M.D., DIRECTOR OF LABORATORY SERVICES VENKATA ZUÑIGA M.D., PATHOLOGIST RUN DATE: 05/22/17 Specimen Inquiry Report PAGE 1 RUN TIME: 1000 PATIENT: SHARMILA SCHWAB ACCT: [id number] LOC: MED U : [id number] AGE/SX: 76/F ROOM: 2271 REG : 05/19/[address]: BK KNAPP DO : 1940 BED: 271 DIS : STATUS: ADM IN TLOC: SPEC #: [id number] ISRAEL: 05/19/17 STATUS: RES REQ #: [id number] RECD: 05/19/17-[address] [facility] [address]: VIVIANA CASEY MD SOURCE: BLOOD ENTR: 05/19/17-[address] [facility] [address]: ELVIE FORTE DO [facility]: ORDERED: CULT BLOOD Procedure Result Verified BLOOD CULTURE Preliminary 05/22/17-1000 NO GROWTH AFTER 3 DAYS, REINCUBATED [facility] *LIVE* [address] [facility] [place] [place] [address] SUMANTH FISCHER M.D., DIRECTOR OF LABORATORY SERVICES VENKATA ZUÑIGA M.D., PATHOLOGIST RUN DATE: 05/22/17 Specimen Inquiry Report PAGE 1 RUN TIME: 1028 PATIENT: SHARMILA SCHWAB ACCT: [id number] LOC: MED U : [id number] AGE/SX: 76/F ROOM: 2271 REG : 05/19/[address]: BK KNAPP DO : 1940 BED: 271 DIS : STATUS: ADM IN TLOC: SPEC #: [id number] ISRAEL: 05/20/17 STATUS: COMP REQ #: [id number] RECD: 05/20/[address]: SHELBY ADAMES MD SOURCE: [place]ERRA ENTR: 05/20/[address]: BK KNAPP DO [facility]: ELVIE FORTE DO ORDERED: CULT URINE COMMENTS: Has specimen been collected/obtained? Y Procedure Result Verified URINE CULTURE Final 05/22/17-1028 NO GROWTH AFTER 2 DAYS Imaging PATIENT NAME: Sharmila Schwab : 1940 MR: [id number] V: [id number] EXAM DATE: ORDERING PHYSICIAN: VIVIANA CASEY TECHNOLOGIST: [place] [facility] [place] Sharm[place] Schwab : 1940 Visit/Account:[id number] Date of Sevice: 05/19/2017 2 VIEWS CHEST INDICATION: Cough, low oxygen, respiratory distress. COMPARISON: 05/13/2013. FINDINGS: Cardiomediastinal silhouette and pulmonary vessels within normal limits. There is no focal infiltrate or lobar consolidation. There is no pneumothorax or pleural effusion. No nodule. Chronic interstitial changes. Scarring seen left lower lobe. Upper abdomen is unremarkable. No acute bony abnormality. IMPRESSION: 1. No acute cardiopulmonary process. Report Dictated By: Uli Huffman at 05/19/2017 2:40 PM Report E-Signed By: Uli Huffman at 05/19/2017 2:47 PM WSN:[id number] NAME: Sharmila Schwab : 1940 MR: [id number] V: [id number] EXAM DATE: [id number] ORDERING PHYSICIAN: BK KNAPP TECHNOLOGIST: [place] [facility] [place]arm[place] Schw[place] : 1940 Visit/Account:[id number] Date of Sevice: 05/20/2017 PORTABLE CHEST: Indication: Pneumonia. Technique: A single frontal film was obtained. Comparison: 05/19/2017 Skeletal and soft tissue structures: Intact and unchanged. Heart and mediastinum: Stable. Lung francisco: Well-expanded. No parenchymal consolidation or volume loss is identified. There are some chronic linear opacities at the bases. Pleural spaces: No evidence of effusion or pneumothorax. Impression: No evidence of parenchymal consolidation or volume loss. No significant change. Report Dictated By: Charlie Rowan MD at 05/20/2017 6:34 AM Report E-Signed By: Charlie Roawn MD at 05/20/2017 6:36 AM WSN:[id number] EKG PATIENT NAME: SHARMILA SCHWAB : [id number] MR: [id number] V: [id number] EXAM DATE: ORDERING PHYSICIAN: VIVIANA CASEY TECHNOLOGIST: Santos Temple Reason : Blood Pressure : / mmHG Vent. Rate : 082 BPM Atrial Rate : 082 BPM P-R Int : 120 ms QRS Dur : 074 ms QT Int : 368 ms P-R-T Axes : 068 046 015 degrees QTc Int : 429 ms Normal sinus rhythm ST and T wave abnormality, consider inferior ischemia Abnormal ECG Confirmed by BK KNAPP ([id number]) on 05/19/2017 4:52:12 PM Referred By: Confirmed By:BK KNAPP Condition: Improved Discharge: [facility] ECF PT/OT Follow Up For: PT For Strengthening, OT For ADL's Time Spent: > 30 min Discharge Instructions Home Meds Active Scripts Prednisone (PREDNISONE) 20 Mg Tablet, 20 MG PO QDAY for 3 Days, TAB Prov:OSVALDO ADAMES MD 05/22/17 Fluticasone/Salmeterol (ADVAIR 250-50 DISKUS) 1 Each Disk.w.dev, 0 EACH INH BIDR for 30 Days, DISK Prov:OSVALDO ADAMES MD 05/22/17 Cefdinir 300 Mg Cap (OMNICEF 300 MG CAP (OR EQUIV)) 300 Mg Cap, 300 MG PO BID for 5 Days, CAP Prov:OSVALDO ADAMES MD 05/22/17 Azithromycin 250 Mg Tab (AZITHROMYCIN 250 MG TAB) 250 Mg Tablet, 500 MG PO QDAY@ 1500 for 3 Days, TAB Prov:OSVALDO ADAMES MD 05/22/17 Cyanocobalamin (Vitamin B-12) (CYANOCOBALAMIN INJECTION) 1,000 Mcg/1 Ml Vial, 1000 MCG IJ Q2WK, #2 VIAL 0 Refills Prov:ADAN CHASE MD 06/17/15 Simvastatin (SIMVASTATIN) 40 Mg Tablet, 40 MG PO HS, #90 TAB 1 Refill Prov:ADAN CHASE MD 04/06/15 Levothyroxine Sodium (LEVOTHYROXINE SODIUM) 25 Mcg Tablet, 1 TAB PO QDAY, #90 TAB 3 Refills Prov:ADAN CHASE MD 03/04/15 Reported Medications Carvedilol (CARVEDILOL) 3.125 Mg Tab, 3.125 MG PO BID, TAB 05/19/17 Fluoxetine Hcl (FLUOXETINE HCL) 20 Mg Capsule, 20 MG PO QDAY, CAPSULE 05/19/17 Oxybutynin Chloride (DITROPAN XL) 10 Mg Tab.er.24, 10 MG PO QDAY Y for URGENCY, #10 TAB 11/30/15 Cranberry Fruit Concentrate (CRANBERRY) 450 Mg Capsule, 2 TAB PO DAILY, CAPSULE 11/27/15 Discontinued Reported Medications Valsartan/Hydrochlorothiazide (VALSARTAN-HCTZ 160-12.5 MG TAB) 1 Each Tablet, 1 EACH PO DAILY 12/24/14 Lansoprazole (PREVACID) 30 Mg Capsule.dr, 30 MG PO QDAY, CAP 05/19/17 Phenazopyridine Hcl (PHENAZOPYRIDINE HCL) 200 Mg Tablet, 200 MG PO TID Y for PAIN, #20 TAB 11/30/15 Docusate Sodium (COLACE) 100 Mg Capsule, 100 MG PO BID, #30 CAPSULE 11/30/15 Hydrocodone Bit/Acetaminophen (HYDROCODON-ACETAMINOPHEN 5-325) 1 Each Tablet, 1- 2 EACH PO Q6H Y for PAIN, #20 TAB 11/30/15 Amitriptyline Hcl (AMITRIPTYLINE HCL) 25 Mg Tablet, 25 MG PO QHS, TAB 11/27/15 Escitalopram Oxalate (ESCITALOPRAM OXALATE) 10 Mg Tablet, 10 MG PO QDAY, TAB 11/27/15 Propranolol Hcl (PROPRANOLOL HCL) 80 Mg Capcr, 80 MG PO QDAY 11/27/15 Diet: Regular Activity: As Tolerated, With Walker Special Instructions: Patient will be transferred to [facility] for ongoing rehabilitation. She will be followed by the Hospitalist Service. Copies to: ELVIE FORTE DO Venous Thromboembolism Antithrombotics Is Pt On Any Antithrombotics?: No OSVALDO ADAMES MD May 22, 2017 14:36
[2017-05-22] MEDS ORDERED: FLUT1DIS28 INH (14:42)
[2017-05-22] MEDS ORDERED: AZIT-18 PO (14:42)
[2017-05-22] MEDS ORDERED: CEF300 PO (14:42)
[2017-05-22] MEDS ORDERED: PRED20TA6 PO (14:42)
[2017-05-22] MEDS ORDERED: LOPE2CAP88 PO (14:52)
[2017-05-22] MEDS ORDERED: VALS1TAB6 PO (14:52)
[2017-05-22] MEDS ORDERED: NAPR1TAB10 PO (14:52)
[2017-05-22] MEDS ORDERED: LAN30PT PO (14:52)
[2017-05-22] MEDS ORDERED: AZITHROMYCIN 250 MG TAB PO SCH (15:00)
[2017-05-23] MEDS ORDERED: predniSONE 20 MG TAB PO SCH (09:00)
== END 2017-05-22 13:25 | DRG 194 ==
LOC: ER 12:53 → MED 15:16
PROVIDERS: ADMIT Family Medicine; ATTEND Family Medicine
DX: J15.9 Unspecified bacterial pneumonia (principal); J45.901 Unspecified asthma with (acute) exacerbation; I12.9 Hypertensive chronic kidney disease with stage 1 through stage 4 chronic kidney disease, or unspecified chronic kidney disease; N18.3 Chronic kidney disease, stage 3 (moderate); R53.1 Weakness; R32 Unspecified urinary incontinence; R31.9 Hematuria, unspecified; E03.9 Hypothyroidism, unspecified; E78.5 Hyperlipidemia, unspecified; Z77.22 Contact with and (suspected) exposure to environmental tobacco smoke (acute) (chronic); Z88.8 Allergy status to other drugs, medicaments and biological substances; Z99.81 Dependence on supplemental oxygen; Z90.49 Acquired absence of other specified parts of digestive tract; Z98.1 Arthrodesis status; Z90.5 Acquired absence of kidney
CPT/HCPCS: 36415; 71045; 71046; 81001; 82040; 82247; 82310; 82374; 82435; 82565; 82947; 83880; 84075; 84132; 84155; 84295; 84450; 84460; 84484; 84520; 85025; 87040; 87088; 93005; 94640; 96365; 96375; 97161; 99285; J0456; J0696; J2930; J7030; J7040; J7050; J7512; J7613

== ENCOUNTER 2017-05-22 08:27 | Outpatient (RCR) | payer MEDICARE ==
[2017-05-20 11:36] VITALS: BMI 30.1
[~2017-05-22 08:27] MED LIST changes: +CAR3.125 PO; +FLUO-177 PO; +LAN30PT PO
[2017-05-22] MEDS ORDERED: CEF300 PO (14:42)
[2017-05-22] MEDS ORDERED: AZIT-18 PO (14:42)
[2017-05-22] MEDS ORDERED: FLUT1DIS28 INH (14:42)
[2017-05-22] MEDS ORDERED: PRED20TA6 PO (14:42)
[2017-05-22] MEDS ORDERED: NAPR1TAB10 PO (14:52)
[2017-05-22] MEDS ORDERED: LOPE2CAP88 PO (14:52)
[2017-05-22] MEDS ORDERED: LAN30PT PO (14:52)
[2017-05-22] MEDS ORDERED: VALS1TAB6 PO (14:52)
[2017-05-31] MEDS ORDERED: THY60 PO (08:07)
[2017-05-31] MEDS ORDERED: FLUT1DIS28 INH (08:07)
[2017-05-31] MEDS ORDERED: RANI-366 PO (08:09)
[2017-05-31] MEDS ORDERED: ALBU8.5H IH (08:16)
[2017-05-31] MEDS ORDERED: CAR3.125 PO (08:24)
--- NOTE | 2017-06-03 14:21 | Transitional Care Management ---
Assessment Visit Type: Telephone Visit Spoke with: Emmie Cardiac: WNL Respiratory: WNL Respiratory Comment: 06/03 Denies SOB. Using IS. CPAP at night. GI: Nutrition: WNL Wt Gain/Loss: WNL Constipation?: No : WNL Musculoskeletal, Exercise: WNL Except Musculoskeletal, Excercise Com: 06/03 Moving safely in the house. PT and OT for increased strength. Mobility/Falls: WNL Integumentary: WNL Feeling of Well Being: WNL Socialization: WNL Socialization Comment: 06/03 Lives at home with her . Pain/Management: WNL Scheduled Follow-Up with Provi: No (06/03 She will call Monday to schedule.) Following Discharge Instructio: Yes TCM Discharge Criteria Transitional Care Comment: 05/20 Suggested she start using a pill tool planner and fill weekly so she is sure she is taking correct/all of medications as ordered. Also suggested she look into a life alert as she is in a Tri-level home and her is very hard of hearing, also suggested Pulmonary Rehab. She does have O2 and CPAP at .. Will have a PT evaluation here at hospital. 06/03 She is excited to be home. PT was there today. We reviewed her discharge medications, emphysis on stopped, and changed meds. She agrees to a home visit. Call Monday to schedule. ALYSON SALAMANCA Jun 03, 2017 14:21
--- NOTE | 2017-06-06 13:16 | Transitional Care Management ---
Assessment Visit Type: Home Visit (06/06 Emmie) Cardiac: WNL Respiratory: WNL Respiratory Comment: 06/03 Denies SOB. Using IS. CPAP at night. 06/06 Using IS on a regular basis p;kristen inhalers Bid. Uses O2 with CPAP at HS. Sometimes during the day "I get a little SOB and need to sit down and rest" but then feel better" Suggested she might want to wear her O2 during rest and naps. GI: Nutrition: WNL Wt Gain/Loss: WNL Constipation?: No : WNL Musculoskeletal, Exercise: WNL Except Musculoskeletal, Excercise Com: 06/03 Moving safely in the house. PT and OT for increased strength. 06/06 PT and OT visited her yesterday but she doesn't feel she needs OT but will talk to HH on Mon when she sees the PT person. Feels like "gettig stronger and using walker on main floor. Walks with reynolds and furniture when up stairs. Enc her to maybe get a second walker from [facility] until more steady as reaching out to grab next thing is not very safe. Mobility/Falls: WNL Except Mobility Comment: 06/06 "My balance is poor and sometimes I get unsteady" I suggested once she is able taking the balance exercise at [facility] Integumentary: WNL Feeling of Well Being: WNL Socialization: WNL Socialization Comment: 06/03 Lives at home with her . Pain/Management: WNL Scheduled Follow-Up with Provi: Yes (06/06 has her appts made w her Nigel Ambriz and Yong) Community Resources/HHC: [facility]/PT,OT Following Discharge Instructio: Yes TCM Discharge Criteria Medication Knowledge: 06/06 she states hermeds that she takes at morning and evening. Suggested she do a pill plnner in order to keep track of meds. She is agreeable to that Red/Yellow Flags: 06/06 Discussed the yellow and Red flags of pneu and COPD. Transitional Care Comment: 05/20 Suggested she start using a pill environmental restoration planner and fill weekly so she is sure she is taking correct/all of medications as ordered. Also suggested she look into a life alert as she is in a Tri-level home and her is very hard of hearing, also suggested Pulmonary Rehab. She does have O2 and CPAP at HS.. Will have a PT evaluation here at hospital. 06/03 She is excited to be home. PT was there today. We reviewed her discharge medications, emphysis on stopped, and changed meds. She agrees to a home visit. Call Monday to schedule. 06/05 Wanted Home visit on 06/06 1100 06/06 Doing pretty well. Has a tri level home needs to go up 7 steps to bedroom and 6 down to laundry room. has been doing the laundry but "I hang onto the rail going up and then try to walk on my own or walk along the wall." here is where I suggested getting a second walker for up stairs.. Copies to: ELVIE FORTE JOAN Jun 06, 2017 13:16
--- NOTE | 2017-06-19 11:23 | Transitional Care Management ---
Assessment Visit Type: Telephone Visit Spoke with: Emmie Cardiac: WNL Respiratory: WNL Respiratory Comment: 06/03 Denies SOB. Using IS. CPAP at night. 06/06 Using IS on a regular basis p;kristen inhalers Bid. Uses O2 with CPAP at HS. Sometimes during the day "I get a little SOB and need to sit down and rest" but then feel better" Suggested she might want to wear her O2 during rest and naps. 06/19 Still getting a little SOB with prolonged activity. GI: Nutrition: WNL Wt Gain/Loss: WNL Constipation?: No : WNL Musculoskeletal, Exercise: WNL Except Musculoskeletal, Excercise Com: 06/03 Moving safely in the house. PT and OT for increased strength. 06/06 PT and OT visited her yesterday but she doesn't feel she needs OT but will talk to HH on Mon when she sees the PT person. Feels like "gettig stronger and using walker on main floor. Walks with reynolds and furniture when up stairs. Enc her to maybe get a second walker from [facility] until more steady as reaching out to grab next thing is not very safe. 06/19 Feeling much stronger. PT helping a lot. Mobility/Falls: WNL Except Mobility Comment: 06/06 "My balance is poor and sometimes I get unsteady" I suggested once she is able taking the balance exercise at [facility] Integumentary: WNL Feeling of Well Being: WNL Socialization: WNL Socialization Comment: 06/03 Lives at home with her . Pain/Management: WNL Scheduled Follow-Up with Sherry: Yes (06/06 has her appts made w her Nigel Ambriz and Yong) Community Resources/HHC: [facility]/PT,OT Following Discharge Instructio: Yes TCM Discharge Criteria Medication Knowledge: 06/06 she states her meds that she takes at morning and evening. Suggested she do a pill plnner in order to keep track of meds. She is agreeable to that Red/Yellow Flags: 06/06 Discussed the yellow and Red flags of pneu and COPD. Transitional Care Comment: 05/20 Suggested she start using a pill liaison planner and fill weekly so she is sure she is taking correct/all of medications as ordered. Also suggested she look into a life alert as she is in a Tri-level home and her is very hard of hearing, also suggested Pulmonary Rehab. She does have O2 and CPAP at .. Will have a PT evaluation here at hospital. 06/03 She is excited to be home. PT was there today. We reviewed her discharge medications, emphysis on stopped, and changed meds. She agrees to a home visit. Call Monday to schedule. 06/05 Wanted Home visit on 06/06 1100 06/06 Doing pretty well. Has a tri level home needs to go up 7 steps to bedroom and 6 down to laundry room. has been doing the laundry but "I hang onto the rail going up and then try to walk on my own or walk along the wall." here is where I suggested getting a second walker for up stairs. 06/19 She is feeling good. Working with PT/OT, and getting stronger. At her baseline resp status. ALYSON SALAMANCA Jun 19, 2017 11:23
--- NOTE | 2017-06-27 16:20 | Transitional Care Management ---
Assessment Visit Type: Telephone Visit Spoke with: Emmie Cardiac: WNL Cardiac Comment: 06/27 has had f/u with Yong and no change in carvedilol doses. No new edema after stopping Valsartan-HCTZ Respiratory: WNL Respiratory Comment: 06/03 Denies SOB. Using IS. CPAP at night. 06/06 Using IS on a regular basis p;kristen inhalers Bid. Uses O2 with CPAP at HS. Sometimes during the day "I get a little SOB and need to sit down and rest" but then feel better" Suggested she might want to wear her O2 during rest and naps. 06/19 Still getting a little SOB with prolonged activity. 06/27 cleaning CPAP routinely. Uses advair daily and has albuterol for prn (not needed) GI: Nutrition: WNL GI Comment: 06/27 Eating "well". Knows to be careful using precautions from ST. Wt Gain/Loss: WNL Constipation?: No : WNL Musculoskeletal, Exercise: WNL Except Musculoskeletal, Excercise Com: 06/03 Moving safely in the house. PT and OT for increased strength. 06/06 PT and OT visited her yesterday but she doesn't feel she needs OT but will talk to on Mon when she sees the PT person. Feels like "gettig stronger and using walker on main floor. Walks with reynolds and furniture when up stairs. Enc her to maybe get a second walker from [facility]ospice until more steady as reaching out to grab next thing is not very safe. 06/19 Feeling much stronger. PT helping a lot. 06/27 feels better. in home rehab cont. Mobility/Falls: WNL Except Mobility Comment: 06/06 "My balance is poor and sometimes I get unsteady" I suggested once she is able taking the balance exercise at [facility] 06/27 walker is her "[id number] car" and she goes all over her house. still slow and limited stairs Integumentary: WNL Feeling of Well Being: WNL Feeling of Well Being Comment: 06/27 not often alone and did not feel she needed life alert. Socialization: WNL Socialization Comment: 06/03 Lives at home with her . Pain/Management: WNL Pain/Management Comment: 06/27 having procedure to "bur the nerves in my neck" on 07/05. feels she will be better after the procedure Scheduled Follow-Up with Provi: Yes (06/06 has her appts made w her Nigel Ambriz and Yong) Community Resources/HHC: [facility]/PT,OT Needed or Pending Tests: Yes (had thyroid labs done) Following Discharge Instructio: Yes TCM Discharge Criteria Medication Knowledge: 06/06 she states her meds that she takes at morning and evening. Suggested she do a pill plnner in order to keep track of meds. She is agreeable to that 06/27 still using pill workforce planner Red/Yellow Flags: 06/06 Discussed the yellow and Red flags of pneu and COPD. Transitional Care Comment: 05/20 Suggested she start using a pill workforce planner and fill weekly so she is sure she is taking correct/all of medications as ordered. Also suggested she look into a life alert as she is in a Tri-level home and her is very hard of hearing, also suggested Pulmonary Rehab. She does have O2 and CPAP at HS.. Will have a PT evaluation here at hospital. 06/03 She is excited to be home. PT was there today. We reviewed her discharge medications, emphysis on stopped, and changed meds. She agrees to a home visit. Call Monday to schedule. 06/05 Wanted Home visit on 06/06 1100 06/06 Doing pretty well. Has a tri level home needs to go up 7 steps to bedroom and 6 down to laundry room. has been doing the laundry but "I hang onto the rail going up and then try to walk on my own or walk along the wall." here is where I suggested getting a second walker for up stairs. 06/19 She is feeling good. Working with PT/OT, and getting stronger. At her baseline resp status. 06/27 feels safe at home; mainly stays on one floor. Feeling better .[facility] MANDEEP SALMERON Jun 27, 2017 16:20
--- NOTE | 2017-07-06 11:12 | Transitional Care Management ---
Assessment Visit Type: Telephone Visit Spoke with: Emmie Cardiac: WNL Cardiac Comment: 06/27 has had f/u with Yong and no change in carvedilol doses. No new edema after stopping Valsartan-HCTZ Respiratory: WNL Respiratory Comment: 06/03 Denies SOB. Using IS. CPAP at night. 06/06 Using IS on a regular basis p;kristen inhalers Bid. Uses O2 with CPAP at HS. Sometimes during the day "I get a little SOB and need to sit down and rest" but then feel better" Suggested she might want to wear her O2 during rest and naps. 06/19 Still getting a little SOB with prolonged activity. 06/27 cleaning CPAP routinely. Uses advair daily and has albuterol for prn (not needed) GI: Nutrition: WNL GI Comment: 06/27 Eating "well". Knows to be careful using precautions from ST. Wt Gain/Loss: WNL Constipation?: No : WNL Musculoskeletal, Exercise: WNL Except Musculoskeletal, Excercise Com: 06/03 Moving safely in the house. PT and OT for increased strength. 06/06 PT and OT visited her yesterday but she doesn't feel she needs OT but will talk to on Mon when she sees the PT person. Feels like "gettig stronger and using walker on main floor. Walks with reynolds and furniture when up stairs. Enc her to maybe get a second walker from Hospice until more steady as reaching out to grab next thing is not very safe. 06/19 Feeling much stronger. PT helping a lot. 06/27 feels better. in home rehab cont. 07/06 Rehab continues, she recieved steroid shots in her neck yesterday, and is feeling very good. Mobility/Falls: WNL Except Mobility Comment: 06/06 "My balance is poor and sometimes I get unsteady" I suggested once she is able taking the balance exercise at [facility] 06/27 walker is her "[id number] car" and she goes all over her house. still slow and limited stairs 07/06 She is able to climb stairs safely, continuing to work with PT. Integumentary: WNL Feeling of Well Being: WNL Feeling of Well Being Comment: 06/27 not often alone and did not feel she needed life alert. 07/06 "I am doing well. Do you need to keep calling me?" Socialization: WN Socialization Comment: 06/03 Lives at home with her . Pain/Management: [facility] Pain/Management Comment: 06/27 having procedure to "bur the nerves in my neck" on 07/05. feels she will be better after the procedure 07/06 Steroid shots yesterday have reduced her pain. Scheduled Follow-Up with Provi: Yes (06/06 has her appts made w her Nigel Ambriz and Yong) Community Resources/HHC: [facility]/PT,OT Needed or Pending Tests: Yes (had thyroid labs done) Following Discharge Instructio: Yes TCM Discharge Criteria Medication Knowledge: 06/06 she states her meds that she takes at morning and evening. Suggested she do a pill plnner in order to keep track of meds. She is agreeable to that 06/27 still using pill data recovery planner Red/Yellow Flags: 06/06 Discussed the yellow and Red flags of pneu and COPD. Transitional Care Comment: 05/20 Suggested she start using a pill data recovery planner and fill weekly so she is sure she is taking correct/all of medications as ordered. Also suggested she look into a life alert as she is in a Tri-level home and her is very hard of hearing, also suggested Pulmonary Rehab. She does have O2 and CPAP at .. Will have a PT evaluation here at hospital. 06/03 She is excited to be home. PT was there today. We reviewed her discharge medications, emphysis on stopped, and changed meds. She agrees to a home visit. Call Monday to schedule. 06/05 Wanted Home visit on 06/06 1100 06/06 Doing pretty well. Has a tri level home needs to go up 7 steps to bedroom and 6 down to laundry room. has been doing the laundry but "I hang onto the rail going up and then try to walk on my own or walk along the wall." here is where I suggested getting a second walker for up stairs. 06/19 She is feeling good. Working with PT/OT, and getting stronger. At her baseline resp status. 06/27 feels safe at home; mainly stays on one floor. Feeling better .Has [facility] services for counseling 07/06 Discharged at her request. She is doing well at home, continuing with PT, no resp issues. ALYSON SALAMANCA Jul 06, 2017 11:12
== END 2017-07-07 07:52 | disposition home or self-care (01) ==
LOC: TCM 08:27
PROVIDERS: ATTEND Nurse Practitioner
DX: Z02.9 Encounter for administrative examinations, unspecified (principal)

== ENCOUNTER 2017-05-22 13:25 | Inpatient (IN) | payer MEDICARE ==
[2017-05-20 11:36] VITALS: Ht 160 cm; Wt 77.1 kg
[~2017-05-22] VITALS: Ht 160 cm; Wt 77.1 kg
[2017-05-22] MEDS ORDERED: CEFDINIR 300 MG CAP PO SCH (13:36)
[2017-05-22] MEDS ORDERED: ACETAMINOPHEN 500 MG TAB PO PRN (13:36)
--- NOTE | 2017-05-22 14:19 | Consultant Pharmacy Review ---
Mail Order Clerk Review Other General Cautions vair Diskus (Beta2-Agonists) Coreg (Beta-Blockers (Nonselective)) X Albuterol (Beta2-Agonists) Coreg (Beta-Blockers (Nonselective)) X PROzac (QTc- Prolonging Agents (Highest Risk)) Zithromax (QTc-Prolonging Agents (Moderate Risk)) D Advair Diskus (QTc-Prolonging Agents (Indeterminate Risk and Risk Modifying)) PROzac (QTc-Prolonging Agents (Highest Risk)) D Albuterol (QTc- Prolonging Agents (Indeterminate Risk and Risk Modifying)) PROzac (QTc- Prolonging Agents (Highest Risk)) D Coreg (CYP2D6 Substrates (High risk with Inhibitors)) PROzac (CYP2D6 Inhibitors (Strong)) C Advair Diskus (QTc- Prolonging Agents (Indeterminate Risk and Risk Modifying)) Zithromax (QTc- Prolonging Agents (Moderate Risk)) C Advair Diskus (Sympathomimetics) Albuterol (Sympathomimetics) C Albuterol (QTc-Prolonging Agents (Indeterminate Risk and Risk Modifying)) Zithromax (QTc-Prolonging Agents (Moderate Risk)) C Coreg (P-glycoprotein/ABCB1 Substrates) Zithromax (P-glycoprotein/ABCB1 Inhibitors) C PROzac (Selective Serotonin Reuptake Inhibitors) Synthroid ( Thyroid Products) C Zithromax (Azithromycin (Systemic)) Zocor (Simvastatin) B Advair Diskus (Beta2-Agonists) PredniSONE (Corticosteroids) B Albuterol (Beta2 -Agonists) PredniSONE (Corticosteroids) Risk Rating X: Avoid combination Summary Beta-Blockers (Nonselective) may diminish the bronchodilatory effect of Beta2-Agonists. Severity Major Reliability Rating Fair Patient Management Avoid the use of nonselective beta-blockers in patients treated with beta2-agonists. If used concomitantly, monitor closely for diminished bronchodilatory effects of the beta2-agonist. Beta2-Agonists Interacting Members Albuterol; Arformoterol; Bambuterol; Fenoterol; Formoterol; Indacaterol; Levalbuterol; Metaproterenol; Olodaterol; Pirbuterol; Ritodrine; Salmeterol; Terbutaline; Tulobuterol; Vilanterol Beta-Blockers (Nonselective) Interacting Members Arotinolol; Carteolol ( Ophthalmic); Carvedilol; Labetalol; Levobunolol; Metipranolol; Nadolol; Oxprenolol; Penbutolol; Pindolol; Propranolol*; Sotalol; Timolol (Ophthalmic); Timolol (Systemic) * Denotes agent(s) specifically implicated in clinical data. Unmarked agents are listed because they have properties similar to marked agents, and may respond so within the context of the stated interaction. Discussion Nonselective beta-blockers (i.e., those that affect both beta1- and beta2-receptors) will antagonize the pharmacologic effects of beta2-agonists, and vice-versa. Of particular concern is the potential for the bronchodilatory effects of beta2-agonists to be abolished in a patient with asthma or chronic obstructive pulmonary disease (COPD). Nonselective beta-blockers, administered either systemically (e.g., oral, intravenous) or as an ophthalmic product, have been implicated in such interactions.1,2,3,4,5,6,7 Prescribing information for most beta2-agonsts (albuterol, arformoterol, formoterol, levalbuterol, pirbuterol, salmeterol, terbutaline, indacaterol) advises against the use of nonselective beta-blockers in patients with asthma or COPD due to the potential for antagonism of the pulmonary effects of the beta-agonists and bronchospasm.8, 9,10,11,12,13,14,15 Only under certain circumstances (e.g., prophylaxis after myocardial infarction) should beta-blockers be used in these patients, and under these circumstances the use of cardioselective agents is preferred to nonselective agents. Agents (Moderate Risk) Interacting Members Azithromycin ( Systemic); Bedaquiline; Benperidol; Ceritinib; Chloroquine; ChlorproMAZINE; Ciprofloxacin (Systemic); Clarithromycin; Clofazimine; CloZAPine; Crizotinib; Delamanid; Dolasetron; Droperidol; Efavirenz; Erythromycin (Systemic); Escitalopram; Flecainide; Gadobenate Dimeglumine; Gemifloxacin; Goserelin; Granisetron; Haloperidol; Inotuzumab Ozogamicin; Lenvatinib; Leuprolide; LevoFLOXacin (Oral Inhalation); LevoFLOXacin (Systemic); Lofexidine; Mequitazine ; Methadone; Midostaurin; Moxifloxacin (Systemic); Ofloxacin (Systemic); Ondansetron; Osimertinib; Panobinostat; PAZOPanib; Pentamidine (Systemic); Pilsicainide; Piperaquine; Primaquine; Probucol; Propafenone; Roxithromycin; Saquinavir; Sodium Stibogluconate; Telavancin; Telithromycin; Terlipressin Discussion The drugs listed here as highest risk are defined as such because their approved labeling contraindicates or recommends avoiding concurrent use of other QT-prolonging drugs, or because other published data/guidelines suggest that such concurrent use significantly increases the risk for toxicity. The drugs listed here as moderate risk are defined as such because their level of risk does not merit inclusion in the highest risk group and they meet at least one of the following criteria: (1) clinical trials demonstrate that use of the drug at therapeutic doses is associated with a prolongation of the mean QT/QTc to more than 500 msec and/or a mean change from baseline in the QT/ QTc of more than 60 msec; (2) approved drug labeling recommends special monitoring of the QT (or ECG) in order to detect prolongation of the QT/QTc and/ or development of ventricular tachyarrhythmias such as torsades de pointes (TdP) ; (3) approved drug labeling describes the drug as having a clinically meaningful QT-prolonging effect (at therapeutic doses) and/or recommends special caution when combined with other drugs capable of prolonging the QT interval; or (4) the drug is listed in the highest risk category (i.e., Drugs with a Risk) on the QTdrugs.org website,1 which is an extensive listing of QTc- related information maintained by [facility]. Several drugs have been associated with the development of life-threatening ventricular arrhythmias, including most notably the polymorphic ventricular tachyarrhythmia torsades de pointes (TdP). Prolongation of the QT interval on the ECG is currently the best available biomarker to assess the risk for development of TdP or other ventricular tachyarrhythmias. However, QT- prolongation is not a perfect indicator of risk as not all QT-prolonging drugs increase the risk for TdP, there is considerable variability in patient sensitivity to QT prolongation, and the QT interval is difficult to measure accurately and is subject to considerable [id number] variability.2,3,4,5 Despite the limitations of the QT interval as a biomarker for TdP risk, there is a general association between QT-prolongation and risk for TdP. Among patients with congenital long QT syndrome (LQTS), each 10 msec increase in the rate-corrected QT (QTc) interval is associated with a 5-7% exponential increase in risk for TdP, and a QTc of over 500 msec is associated with a 2- to 3-fold increase in TdP risk.2 The risk of drug-induced QT prolongation and TdP is thought to be similar to these shown with congenital LQTS. According to an FDA Guidance for Industry regarding QT/QTc assessment, QT interval increases of 5 msec or less are generally considered to indicate no increase in TdP risk, while increases of 5 to less than 20 msec indicate a possible increase in risk and increases of 20 msec or more indicate a substantially increased risk.3 Many risk factors that may increase a patient's risk for TdP development associated with the use of QT-prolonging drugs have been identified. Factors known to increase patients' risk include female sex, age over 65 years, bradycardia, hypokalemia, hypomagnesemia, underlying heart disease, higher concentrations of one or more QT-prolonging drugs, and genetic predisposition.2, 3,4,5 Although the risks associated with higher serum concentrations of a QT- prolonging drug have been well characterized (e.g., terfenadine drug interactions leading to its withdrawal from the [place] market), the specific risks associated with concurrent use of multiple QT-prolonging drugs (apart from a pharmacokinetic interaction) has not been well-described. In one review of 70 patients who experienced QT prolongation with IV haloperidol, 68 (97%) patients had other risk factors for QT prolongation, and concurrent use of another QT-prolonging drug was the most common risk factor identified.6 Footnotes 1. http://www.qtdrugs.org, International Registry for Drug-Induced Arrhythmias; [facility], [place], [place]. 2. Julio ANDERSON, Helio MJ, Niki M, et al, Prevention of Torsade de Pointes in Hospital Settings: A Scientific Statement from the [place] [employer] and the [place] [employer] Foundation, J Am Rosendo Cardiol, 2010, 55( 9):934-47. [PubMed [id number]] 3. U.S. Department of Health and Human Services, Food and Drug Administration, Center for Drug Evaluation and Research (CDER), Center for Biologics Evaluation and Research (CBER), Guidance for Industry: E14 Clinical Evaluation of QT/QTc Interval Prolongation and Proarrhythmic Potential for Non-Antiarrhythmic Drugs, http://www.fda.gov/downloads/RegulatoryInformation/Guidances/WEE468111.pdf?utm _campaign=Google2&utm_source=[employer]&utm_medium=website&utm_term=Clinical Evaluation of QT/QTc&utm_content=January 2005. 4. Armando P, Arleth DM, Sol D, Drug-Induced Long QT Syndrome, Pharmacol Rev, 2010, 62(4):760-81. [PubMed [id number]] 5. Bridger ML, Serjio GA, Miguelina Whiting G, Mechanisms of Drug Induced QT Interval Prolongation, Curr Drug Saf, 2010, 5(1):44-53. [PubMed [id number]] 6. Zurdo C, Dave CM, Clay BA, et al, The FDA Extended Warning for Intravenous Haloperidol and Torsades de Pointes: How Should Institutions Respond ? J Hosp Med, 2010, 5(4):E8-16. [PubMed [id number]] * Terms & Conditions // * Disclaimer * [employer] on Facebook * [employer] on Twitter * Get [employer] [place] 2018 [employer] and its affiliates and/or licensors. All Rights Reserved. * Top of Form 1 * Bottom of Form 1 Pneumococcal Vaccine HX Pneumo Vac ([id number]): Yes (75) SHELBY HINSON May 22, 2017 14:19
[2017-05-22 14:30] VITALS: BP 140/69
[2017-05-22] MEDS ORDERED: AZIT-18 PO (14:42)
[2017-05-22] MEDS ORDERED: CEF300 PO (14:42)
[2017-05-22] MEDS ORDERED: PRED20TA6 PO (14:42)
[2017-05-22] MEDS ORDERED: FLUT1DIS28 INH (14:42)
--- NOTE | 2017-05-22 14:45 | ECF H&P BLANK ---
FORMERLY [facility], 1928–1983 H&P UPDATE History of Present Illness Chief Complaint Cough and fever History of Present Illness This patient presented to the emergency room with complaints of cough, fever, and shortness of breath. She reports having respiratory symptoms on and off since Prabha, but that she became much worse over the last 24hrs. History Problems: (1) Essential hypertension (2) Hypothyroidism Status: Chronic (3) Atrophy of left kidney Status: Chronic (4) CKD (chronic kidney disease) stage 3, GFR 30-59 ml/min Status: Chronic (5) Urinary incontinence Status: Chronic (6) Hyperlipidemia Status: Chronic Home Meds Active Scripts Cyanocobalamin (Vitamin B-12) (CYANOCOBALAMIN INJECTION) 1,000 Mcg/1 Ml Vial, 1000 MCG IJ Q2WK, #2 VIAL 0 Refills Prov:ADAN CHASE MD 06/17/15 Simvastatin (SIMVASTATIN) 40 Mg Tablet, 40 MG PO HS, #90 TAB 1 Refill Prov:ADAN CHASE MD 04/06/15 Levothyroxine Sodium (LEVOTHYROXINE SODIUM) 25 Mcg Tablet, 1 TAB PO QDAY, #90 TAB 3 Refills Prov:ADAN CHASE MD 03/04/15 Reported Medications Carvedilol (CARVEDILOL) 3.125 Mg Tab, 3.125 MG PO BID, TAB 05/19/17 Fluoxetine Hcl (FLUOXETINE HCL) 20 Mg Capsule, 20 MG PO QDAY, CAPSULE 05/19/17 Oxybutynin Chloride (DITROPAN XL) 10 Mg Tab.er.24, 10 MG PO QDAY Y for URGENCY, #10 TAB 11/30/15 Cranberry Fruit Concentrate (CRANBERRY) 450 Mg Capsule, 2 TAB PO DAILY, CAPSULE 11/27/15 Valsartan/Hydrochlorothiazide (VALSARTAN-HCTZ 160-12.5 MG TAB) 1 Each Tablet, 1 EACH PO DAILY 12/24/14 Discontinued Reported Medications Lansoprazole (PREVACID) 30 Mg Capsule.dr, 30 MG PO QDAY, CAP 05/19/17 Phenazopyridine Hcl (PHENAZOPYRIDINE HCL) 200 Mg Tablet, 200 MG PO TID Y for PAIN, #20 TAB 11/30/15 Docusate Sodium (COLACE) 100 Mg Capsule, 100 MG PO BID, #30 CAPSULE 11/30/15 Hydrocodone Bit/Acetaminophen (HYDROCODON-ACETAMINOPHEN 5-325) 1 Each Tablet, 1- 2 EACH PO Q6H Y for PAIN, #20 TAB 11/30/15 Amitriptyline Hcl (AMITRIPTYLINE HCL) 25 Mg Tablet, 25 MG PO QHS, TAB 11/27/15 Escitalopram Oxalate (ESCITALOPRAM OXALATE) 10 Mg Tablet, 10 MG PO QDAY, TAB 11/27/15 Propranolol Hcl (PROPRANOLOL HCL) 80 Mg Capcr, 80 MG PO QDAY 11/27/15 Allergies: Coded Allergies: codeine (Verified Allergy, Intermediate, HALLUCINATIONS, 11/27/15) adhesive tape (Verified Allergy, Mild, RASH, 01/05/15) ciprofloxacin (Verified Allergy, Unknown, 05/19/17) Patient History: FH: COPD (chronic obstructive pulmonary disease) MOTHER, , Age:89 FH: diabetes mellitus FATHER, , Age:81 FH: heart disease FATHER, , Age:81 MOTHER, , Age:89 Hx Smoking: No Smoking Status: Never Smoker Caffeine/Cups Per Day: 0 Hx Alcohol Use: Yes Hx Substance Use Disorder: No Social Drug Use: Never Review of Systems All Systems Reviewed/Normal: Yes, Except as Noted Constitutional: Fever Respiratory: Shortness of Breath, Cough Exam Vital Signs Vital Signs Date Time Temp Pulse Resp B/P (MAP) Pulse Ox O2 Delivery O2 Flow Rate FiO2 05/19/17 16:45 94 Nasal Cannula 2.0 05/19/17 16:37 98.3 101 18 125/97 (106) Neuro: No Gross deficits Eyes: PERRLA Cardiovascular: Regular Rate and Rhythm Respiratory: Clear to Auscultation Extremities: No Edema Integumentary: No Cyanosis Medical Decision Making Data Points Result Diagram: 05/19/17 1350 05/19/17 1429 EKG / Imaging Imaging Chest x-ray reviewed. Assessment and Plan Problems: (1) Bacterial pneumonia Assessment & Plan: She did present with fever, cough, and shortness of breath. She also has an elevated WBC. Her initial chest x-ray did not show an infiltrate. We have started her on empiric treatment with ceftriaxone and azithromycin. We will repeat a chest x-ray in the morning. We may consider stopping antibiotics if her x-ray continues to be normal. Cultures are also pending. (2) Essential hypertension Assessment & Plan: She is on chronic treatment with carvedilol, valsartan, and hydrochlorothiazide. The carvedilol has been ordered, but the other medications are currently on hold. (3) CKD (chronic kidney disease) stage 3, GFR 30-59 ml/min Status: Chronic (4) Urinary incontinence Status: Chronic Assessment & Plan: She is followed by Dr. Hernández for this. (5) Hypothyroidism Status: Chronic Assessment & Plan: She is on chronic treatment with Synthroid. (6) Hyperlipidemia Status: Chronic Assessment & Plan: She is on chronic treatment with simvastatin. Venous Thromboembolism Antithrombotics Is Pt On Any Antithrombotics?: No Exam Sepsis Risk: Sepsis Risk BK KNAPP DO May 19, 2017 18:53 <Electronically signed by BK KNAPP DO> D/ 52 52 52 IRVIN/RUTHIE CC: She will be admitted to [facility] for ongoing rehabilitative therapy. OSVALDO ADAMES MD May 22, 2017 14:44
[2017-05-22] MEDS ORDERED: VALS1TAB6 PO (14:52)
[2017-05-22] MEDS ORDERED: LAN30PT PO (14:52)
[2017-05-22] MEDS ORDERED: NAPR1TAB10 PO (14:52)
[2017-05-22] MEDS ORDERED: LOPE2CAP88 PO (14:52)
[2017-05-22] MEDS: AZITHROMYCIN 250 MG TAB PO SCH (15:31)
[2017-05-22] MEDS: ALBUTEROL 1.25 MG/3ML NEB NEB SCH (17:13)
[2017-05-22] MEDS: SALMETEROL/FLUTIC 250/50 1 INH INH SCH (17:13)
--- NOTE | 2017-05-22 20:19 | EKG ---
FACILITY: [facility] [place] PATIENT NAME: SHARMILA WEBSTER : [id number] MR: [id number] V: [id number] EXAM DATE: ORDERING PHYSICIAN: OSVALDO ADAMES TECHNOLOGIST: LORRAINE Test Reason : CARDAIC Blood Pressure : / mmHG Vent. Rate : 079 BPM Atrial Rate : 079 BPM P-R Int : 132 ms QRS Dur : 086 ms QT Int : 370 ms P-R-T Axes : 079 069 068 degrees QTc Int : 424 ms Sinus rhythm with premature supraventricular complexes Nonspecific ST and T wave abnormality Decreased R wave progression anteriorly Abnormal ECG Confirmed by OSVALDO ADAMES ([id number]) on 05/23/2017 1:16:18 AM Referred By: Confirmed By:OSVALDO ADAMES
[2017-05-22] MEDS: CEFDINIR 300 MG CAP PO SCH (21:08)
[2017-05-22] MEDS: OXYBUTYNIN CHL XL 5 MG TABCR PO PRN (21:09)
[2017-05-22] MEDS: CARVEDILOL 3.125 MG TAB PO SCH (21:09)
[2017-05-22] MEDS: SIMVASTATIN 40 MG TAB PO SCH (21:09)
[2017-05-23] MEDS: SALMETEROL/FLUTIC 250/50 1 INH INH SCH ×2 (05:55→17:13)
[2017-05-23] MEDS: ALBUTEROL 1.25 MG/3ML NEB NEB SCH ×3 (05:55→17:12)
[2017-05-23] MEDS: LEVOTHYROXINE SOD 0.025 MG TAB PO SCH (06:26)
[2017-05-23 08:10] VITALS: BP 139/77
--- NOTE | 2017-05-23 09:25 | PT ECF NOTE ---
Type of Note: Initial Note Primary Medical Diagnosis: Bacterial Pneumonia Physical Therapy Evaluation Date: 05/23/17 SUBJECTIVE: Prior Hospitalization: [facility] 05/19/17-05/22/17 Prior Level of Function: Holger with occasional use of SPC, pt reports progressive weakness over the past year Prior Living Status: Multilevel house (7 stairs with railing to access bedroom), Spouse Community Services: No known needs Home Accessibility: 2 stairs with rails to access home from garage Equipment Owned: Rollator, Cane Medical Complications/Past Medical History: See EMR Psychosocial Support: Supportive Pain Scale (0-10): none reported at time of evaluation OBJECTIVE: Strength: Right Lower Extremity: DF: 5/5 Knee flexion: 4/5 Knee extension: 4/5 Hip flexion: <3/5 Left Lower Extremity: DF: 4/5 Knee flexion: 3+/5 Knee extension: 3+/5 Hip flexion: <3/5 ROM: WFL Sensation: WNL Other Neuro findings: none noted Bed Mobility: SBA with HOB raised with use of railing Transfers: SBA with RW Gait: SBA x150' with RW Stairs: NT Timed Up and Go (>12 seconds indicated increased risk for falls): 36 seconds ASSESSMENT: PT ECF eval complete. Pt demonstrates overall generalized deconditioning and LE weakness with decreased tolerance to functional mobility and increased need of assistance from others. The patient will benefit from skilled PT services in order to improve safety and independence with functional mobility to allow for an independent discharge home. Problem List/Current Limitations: Decreased activity calin Decreased strength Decreased balance Generalized weakness Short Term Goals: 1: Pt to complete bed mobility with Holger and HOB flat with no use of bed rail 2: Pt to complete transfers with Holger and least restrictive AD from a variety of surfaces 3: Pt to ambulate 300' with Holger and least restrictive AD 4: Pt to asc/desc a full flight of stairs with SBA. 5: Pt to demonstrate a marked improvement in TUG time to indicate a decreased risk of falls. Horser Up Goals: Pt to discharge home with good ability to safely asc/desc stairs and safely access home environment Patient Goals: "Get stronger" Rehabilitation Prognosis: Good Barriers for Discharge: Longstanding generalized weakness per pt report PLAN: The patient will benefit from skilled physical therapy services 5 times per week for 2 weeks including: Therapeutic Exercise Therapeutic Activities Transfer Training Gait Training Stair Training Manual Therapy Safety Training Neuromuscular Re-educ. Pt/Caregiver Training Bed Mobility Thank you for this referral. If you have any questions, concerns, or comments about this report or plan, please contact me at . Elizabeth Humphrey, PT, DPT [facility]
[2017-05-23] MEDS: CARVEDILOL 3.125 MG TAB PO SCH ×2 (09:35→20:54)
[2017-05-23] MEDS: CEFDINIR 300 MG CAP PO SCH ×2 (09:36→20:54)
[2017-05-23] MEDS: FLUoxetine HCL 20 MG CAP PO SCH (09:36)
[2017-05-23] MEDS: predniSONE 20 MG TAB PO SCH (09:36)
[2017-05-23] MEDS: CRANBERRY EXTRACT 1 EACH CAP 1 EACH CAP PO SCH (09:37)
--- NOTE | 2017-05-23 10:46 | Medical Nutrition Therapy ---
Nutrition Anthropometrics Height (Inches): 63.00 Height (Calculated Centimeters: 160.647309 Weight (Pounds): 177 Weight (Calculated Kilograms): 80.286 BMI Calculated: 30.15 Saroj Nutrition Score: Adequate Saroj Nutrition Risk Score: 20 Dietary Referral Nutrition Risk Factors: Unplanned Loss >10lbs Nutrition Risk Comment: Has lost 11 pounds since April 03, 2017 Physical Findings Physical Appearance: Obese BMI 30-39 Skin Appearance Skin Appearance: Edema Edema Location Modifier: Edema Location: Type of Edema: Degree of Edema: Gastrointestinal Symptoms GI Symtoms: Appetite Changes Tube Present: Bowel Sounds: Recent Bowel Pattern: Stool Characteristics: Nutritional Diagnosis Nutritional Risk Acuity 2: Unintended Wt Loss >5%/mo Nutritional Risk Acuity 3: Fair Appetite Past Medical History: HTN, hypothyroidism, atrophy left kidney, CKD-Stage 3 Nutritional Acuity: 2-Moderate Nutrition Diagnosis: Involuntary Wt. Loss Nutrition Etiology: Physiological Causes Nutrition Problem/Etiology/Sym: r/t dx peumonia with decreased appetitite AEB reported 10# wt loss 1 month per pat Energy Requirement: 1680 (M- SJ) Protein Requirement: 80 Fluid Requirement: 2400 (30ml/kg) Diet Type: Diet as Tolerated CAMMY/REG Nutrition Monitoring & Eval Nutrition Goals: Eat 75-100% Meal RD Patient Assessment Time: [address] Assessment Type: RD Assessment Patient Nutrition Acuity: 2-Moderate Follow Up Date: May 30, 2017 Nutritional Comment: 05/23 Pt on CAMMY and has been eating 50-75% of meals. Pt reports 10# wt loss since Apr. Wt on medical unit was 184#, indicating a 3.8% wt loss. A 10# wt loss in 1 month would be a 5% wt loss. BMI is in class 1 obssity range with slow wt loss acceptable. Pt admitted with pneumonia. Decreased appetite may be contributing to wt loss. Pt is on predisone which may increase appetite. Pt has dx CKD-# BUN 24, Creatnine 1.1 and had improved since admit to Med unit. alb 3.7. Will cont to monitor and encourage intake. LALO AGUILAR May 23, 2017 10:34
--- NOTE | 2017-05-23 13:14 | SPEECH INITIAL EVALUATION ---
SPEECH THERAPY manager cardiac: Vero Clemons MS, CCC-MARINE CONSULTANT Type of Assessment: Cognitive Evaluation Patient: Emmie Schwab : 36, 76yrs Evaluation Date: 05-23-17 PREVIOUS LEVEL OF FUNCTION: Primary Medical Diagnosis: Pneumonia PLOF: Independent. Lives with spouse. 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 Several previous cervical surgeries d/t accident approx. 25yrs ago. Reports her physician recently told her the surgical implants are deteriorating but that he would rather not perform another surgery d/t patients age. Previous head injuries d/t falls with MRI 2007 Pain Scale: 6 or 7 in neck. Reports this is typical with recent exacerbation. CURRENT LEVEL OF FUNCTION: Min or mod assist with IADLs and functional communication for safety and independence and dysphagia care. Requires increasing assistance with cognitive/ linguistic tasks over the last 4 months including conversation, work related tasks (scheduling, bookkeeping), shipping, and cooking. Pt reports she has difficulty completing simple tasks d/t frequently loses track of progress through task , decreasing alternating attention and maintaining attention to task. In addition she reports she often loses track of conversational topic, forgets what she wants to say, and struggles to maintain conversation turn taking all decreasing functional communication. LOC / Participation: alert , cooperative , largely aware of deficits Orientation: oriented to person, place, time, situation COGNITION/COMMUNICATION COGNITION The [place] Cognitive Assessment (MoCA) was administered with the following results: -MoCA Total Score (TS): 24/30 = mild cognitive impairment (MCI) -MoCA Memory Index Score (MIS) : 03/17 -MCI to Alzheimers Disease Average Conversion Rate: MIS score outside of cut off score for this conversion (cut of score 6) -Cognitive Domains Demonstrating Deficits: executive function, generative naming, delayed recall -Cognitive Domains Demonstrating Strength: orientation, abstract language Cognitive- Linguistic deficits impact swallow function/safety, or response to therapy: No. Functional Communication Deficits: The patient presents with mild cognitive linguistic deficits that reduce functional communication as well as safety and independence in the home and community. SPEECH Apraxia: Non-apraxic Dysarthric: Non-dysarthric Overall intelligibility: High VOICE Vocal Deficits: No DYSPHAGIA Dysphagia Risk Evaluation Protocol DREP: Water Swallow Test: Pass, , Solids Swallow Test: Fail Sialorrhea: No Xerostomia: No Supplemental Oxygen Use: nocturnal only Respiratory Rate: respiratory deficits are present and increase risk of aspiration Oral Stage Oral Stage Dysphagia: No Pharyngeal Stage Pharyngeal Stage Dysphagia: possible pharyngeal stage dysphagia. Pt reports globus sensation with solids. Compensatory Maneuvers Used: soft foods, avoid diff foods (bread, meat), liquid wash, chopped foods Esophageal Stage Esophageal Stage Dysphagia Indicated: Possible esophageal stage dysphagia. Pt reports regurgitation immediately following meals approximately 1x/wk. She indicates feeling globus sensation from larynx to sternal notch. Patient has a history of DENTON and reports occasionally taking Gaviscon. She reports receiving esophageal assessment 10+ years ago but does not recall the details. Odynophagia at/below Suprasternal Notch: Yes. Solids Globus Sensation at/below Suprasternal Notch: Yes. Solids SUMMARY COGNITIVE / LINGUISTIC ASSESSMENT Pt demonstrates mild cognitive deficits. The pt requires increasing assistance with cognitive/linguistic tasks over the last 4 months including conversation, work related tasks (scheduling, bookkeeping), shipping, and cooking, creating safety concerns. Pt reports she has difficulty completing simple tasks d/t frequently loses track of progress through task , decreasing alternating attention and maintaining attention to task. In addition she reports she often loses track of conversational topic, forgets what she wants to say, and struggles to maintain conversational turn taking all decreasing functional communication. Will assess independence with medication management next time. DYSPHAGIA Pt reports s/s of pharyngeal and esophageal dysphagia including globus sensation above and below larynx as well as frequent regurgitation between meals. Cervical deterioration d/t multiple cervical surgeries may be effect pharyngeal and/or esophageal swallow. Respiratory deficits increase aspiration risk. Further Evaluation is recommended to differentiate between pharyngeal vs esophageal dysphagia. Modified Barium Swallow is recommended as well as Esophagram. RECOMMENDATIONS 1. ST 2x/wk 2. Further Evaluation: MBS and Esophagram 3. Diet Modification: Mechanical soft foods, cut. Regular thin liquids. Always have liquids present with meals. Avoid difficult foods including breads/meats. PROGNOSIS: Good. Patient is motivated PLAN OF CARE Short Term Goals 1. The patient will perform immediate/short term memory tasks at 90% with min assist for successful communication related to patient independence / safety / social interaction / care and comfort/ medical details 2. The patient will demonstrate executive function skills for functional cognitive communication for safety and independence with IADLs and medical care/ recommendations Long-Term Goals 1. Pt will demonstrate safety with diet advanced as appropriate 2. Pt will demonstrate cognitive skills for safety/indep at home and community with modifications as appropriate Thank you for this referral. Please call [phone] Vero Clemons M.S., CCC-MARINE CONSULTANT WILLIAMD
--- NOTE | 2017-05-23 14:33 | Antimicrobial Stewardship ---
Antimicrobial Stewardship MD Service: Hospitalist Indications: CAP Antimicrobial Allergies Ciprofloxacin Antimicrobial Used Azithromycin PO started 05/20/17 and Cefdinir PO started 05/22/17 during Inpatient Admission on Medical Surgical. Height (Calculated Centimeters: 160.905873 Weight (Calculated Kilograms): 80.286 Patient Improving Clinically: Yes Tolerating Oral Fluids: Yes Able to Absorb PO Meds: Yes Taking Other Meds PO: Yes Comments PO antimicrobials ordered at time of ECF Admission. ASHLIE TERRAZAS May 23, 2017 14:33
--- NOTE | 2017-05-23 15:09 | OT ECF NOTE ---
Type of Note: Initial Note Primary Medical Diagnosis: Generalized weakness s/p pneumonia Occupational Therapy Evaluation Date: 05/23/17 SUBJECTIVE: Prior Hospitalization: H 05/19/17 thru 05/23/17 Prior Level of Function: Independent with all ADLs/IADLs. Pt does not drive, spouse drives and the go to grocery store etc together. Prior, pt ambulated without an AD but owns a 4WW. Prior Living Status: Multilevel house-Will need to complete 6 stairs to access bathroom Spouse Community Services: No known needs Home Accessibility: Stairs with rails Walk-in shower Tub/shower combination Equipment Owned: Rollator, Cane Medical Complications/Past Medical History: h/o asthma, HTN. CKD, urinary incontinence, hematuria, hypothyroidism, hyperlipemia, h/o cervical neck fusion Psychosocial Support: Support spouse "Byran" Pain Scale (0-10): None reported at time of evaluation Hand Dominance: Left OBJECTIVE: Strength: MMT: Right Left Shoulder Flexion WFL WFL Elbow Flexion WFL WFL Wrist Extension WFL WFL Conference Translator WFL WFL (5= normal, 4= good, 3= fair, 2= poor, 1= trace) ROM: Both upper extremities, WFL Functional Transfer: Assistive Device: Front wheeled walker,Gait belt Transfer Ability: SBA ADL: Upper body dressing: Assistive device: Upper body dressing ability: N/T Lower body dressing: Assistive device: Lower body dressing ability: SBA Toileting: Assistive device: Toileting ability: N/T Grooming/hygiene: Assistive device: Grooming ability: N/T Bathing: Assistive device: Bathing ability: N/T Standardized Assessment: Nazia Index of Activities of Daily Livin/20 at initial evaluation () ASSESSMENT: Emmie presents to [facility] with generalized weakness s/p pneumonia. At [facility], she was independent with ADLs/IADLs and completed 6 stairs multiple times per day to access her bathroom/bedroom. Currently, she requires assist for ambulation presents with decreased activity tolerance. She will benefit from skilled OT services to improve activity tolerance and optimize independence for ADLs/IADLs. Problem List/Current Limitations: Decreased activity tolerance Generalized weakness Short Term Goals: 1) Pt will be independent UB/LB dressing. 2) Pt will be independent grooming/hygiene. 3) Pt will be independent toilet task. 4) Pt will be independent shower task. 5) Pt will be Mod (I) light meal prep task. 6) Pt Nazia Index of ADLs score will increase by 2 points. Longterm Goals: Return home with services Patient Goals: "Improve my balance and mental capacity" Rehabilitation Prognosis: Good Barriers to Discharge: Medical history, age PLAN: The patient will benefit from skilled occupational therapy services 5 times per week for 2 weeks including: Ther ex ADL training Safety training Ther act IADL training Transfer training Adaptive equip training Bed mobility Energy conservation Thank you for this referral. If you have any questions, concerns, or comments about this report or plan, please contact me at . Elaine Chilel MS, OTR/L Occupational Therapist [place]
[2017-05-23 15:50] VITALS: BP 136/76
[2017-05-23] MEDS: AZITHROMYCIN 250 MG TAB PO SCH (16:02)
[2017-05-23] MEDS: SIMVASTATIN 40 MG TAB PO SCH (20:54)
[2017-05-23] MEDS: OXYBUTYNIN CHL XL 5 MG TABCR PO PRN (20:57)
[2017-05-24] MEDS: ALBUTEROL 1.25 MG/3ML NEB NEB SCH ×2 (05:31→11:20)
[2017-05-24] MEDS: SALMETEROL/FLUTIC 250/50 1 INH INH SCH ×2 (05:31→17:08)
[2017-05-24] MEDS: LEVOTHYROXINE SOD 0.025 MG TAB PO SCH (06:35)
[2017-05-24 07:40] VITALS: BP 133/62
[2017-05-24] MEDS: predniSONE 20 MG TAB PO SCH (08:58)
[2017-05-24] MEDS: FLUoxetine HCL 20 MG CAP PO SCH (08:58)
[2017-05-24] MEDS: CARVEDILOL 3.125 MG TAB PO SCH ×2 (08:58→20:30)
[2017-05-24] MEDS: CEFDINIR 300 MG CAP PO SCH ×2 (08:58→20:30)
[2017-05-24] MEDS: CRANBERRY EXTRACT 1 EACH CAP 1 EACH CAP PO SCH (08:59)
[2017-05-24] MEDS ORDERED: BARIUM SULFATE 148 GM POWDER ONE (13:41)
[2017-05-24] MEDS ORDERED: BARIUM SULFATE 240 ML ORAL SUS (NECTAR) ONE (13:41)
[2017-05-24] MEDS: AZITHROMYCIN 250 MG TAB PO SCH (14:33)
[2017-05-24] MEDS ORDERED: ALBUTEROL 1.25 MG/3ML NEB NEB PRN (15:05)
--- NOTE | 2017-05-24 15:20 | Hospitalist Progress Note ---
Subjective Progress Notes Subjective The patient states she is feeling better. Physical Exam Vital Signs Date Time Temp Pulse Resp B/P (MAP) Pulse Ox O2 Delivery O2 Flow Rate FiO2 05/24/17 11:23 99 Nasal Cannula 1.0 05/24/17 11:23 61 18 05/24/17 07:40 98.3 133/62 (85) Intake and Output 05/25/17 07:00 Intake Total 480 ml Balance 480 ml Intake Oral 480 ml # Voids 3 # Bowel Movements 2 General Appearance: Alert, Awake, No Acute Distress Eyes: PERRLA Cardiovascular: Regular Rate and Rhythm Respiratory: Clear to Auscultation GI: Soft and Non-Tender Extremities: Warm, Perfused Psych: Appropriate Mood & Affect Assessment and Plan Problems: (1) Asthma exacerbation Status: Acute Assessment & Plan: Lung exam much better today. Will stop scheduled albuterol nebs and continue Advair with prn albuterol nebs. Will decrease prednisone to 10mg daily. (2) Essential hypertension Status: Chronic Assessment & Plan: Continue carvedilol. (3) Hypothyroidism Status: Chronic Assessment & Plan: Will order TSH, free T4 and T3. (4) Hyperlipidemia Status: Chronic Assessment & Plan: Continue simvastatin. (5) GERD (gastroesophageal reflux disease) Status: Chronic Assessment & Plan: Not on treatment currently. (6) CKD (chronic kidney disease) stage 3, GFR 30-59 ml/min Status: Chronic Assessment & Plan: Creatinine 1.1 on most recent check. (7) Mild cognitive impairment Status: Chronic Assessment & Plan: The patient has noted some cognitive trouble for about a year. ST evaluated and found mild cognitive deficit and is working with the patient. Time Spent on Plan of Care: < 30 min SHELBY ADAMES MD May 24, 2017 15:20
--- NOTE | 2017-05-24 17:24 | RADIOLOGY IMAGING REPORT ---
FACILITY: [facility] PATIENT NAME: Emmie Schwab : 1940 MR: [id number] V: [id number] EXAM DATE: ORDERING PHYSICIAN: SARAH HERNANDEZ TECHNOLOGIST: Location: [facility] Patient: Emmie Schwab : 1940 Visit/Account:[id number] Date of Sevice: 05/24/2017 Exam type: ESOPH VIDEO SWALLOWING History: Dysphagia Comparison: None. Findings: The modify barium swallow was performed by the speech pathologist. Fluoroscopic assistance was provi ded. Patient received various liquid substances and barium impregnated solid foods and a barium tabl et. No dysphasia was noted during the examination. Please see the speech pathologist report for com plete details. The fluoroscopy dose area product is 358.56 micro-Loera per meter squared IMPRESSION: 1. As above Report Dictated By: Nela Tony MD at 05/24/2017 5:15 PM Report E-Signed By: Nela Tony MD at 05/24/2017 5:20 PM WSN:[id number]
[2017-05-24 20:20] VITALS: BP 163/85
[2017-05-24] MEDS: OXYBUTYNIN CHL XL 5 MG TABCR PO PRN (20:30)
[2017-05-24] MEDS: SIMVASTATIN 40 MG TAB PO SCH (20:30)
[2017-05-25] MEDS: SALMETEROL/FLUTIC 250/50 1 INH INH SCH ×2 (05:40→17:41)
[2017-05-25] MEDS: LEVOTHYROXINE SOD 0.025 MG TAB PO SCH (05:40)
[2017-05-25 07:33] VITALS: BP 139/64
[2017-05-25] MEDS ORDERED: predniSONE 20 MG TAB PO SCH (09:00)
[2017-05-25] MEDS: CRANBERRY EXTRACT 1 EACH CAP 1 EACH CAP PO SCH (09:41)
[2017-05-25] MEDS: CARVEDILOL 3.125 MG TAB PO SCH ×2 (09:41→20:29)
[2017-05-25] MEDS: CEFDINIR 300 MG CAP PO SCH ×2 (09:41→20:29)
[2017-05-25] MEDS: FLUoxetine HCL 20 MG CAP PO SCH (09:42)
[2017-05-25] MEDS: predniSONE 20 MG TAB PO SCH (09:42)
--- NOTE | 2017-05-25 10:52 | SLP MODIFIED BARIUM SWALLOW ---
Speech Language Pathology Modified Barium Swallow Evaluation Report Date of Evaluation: 05-24-17 Patient Name: Emmie Schwab Patient : 1940, 76yrs Physician: Harriet Lee MD Clinician: Vero Clemons M.S., [facility], Sherry Molina [facility] BACKGROUND The patient is a 76yr old female who was [facility] on 2017 for cough, fever, and shortness of breath. The patient reported that she had respiratory symptoms on and off since . The patient was referred for an MBS secondary to respiratory issues and her diagnosis of pneumonia to rule out aspiration pneumonia. The pt reported that she experiences difficulty with dryer foods and prefers wet foods and smaller bites. She also reported regurgitating food after meals, saying that it comes back up. Oxygen Supplementation: No Level of Consciousness: Non altered Cognitive/Linguistic: intact (Refer to speech evaluation on 05/23/2017) Orientation: x4 Language: -expressive: nonaphasic -receptive: nonaphasic Speech: -non-apraxic -non-dysarthric Voice -Dysphonia: none -Nasal emission: No -Hypernasality: No -Wet Vocal Quality: No Non-verbal Oral Structure and Function: within functional limits for speech and swallow Pain with Swallow: Denies MODIFIED BARIUM SWALLOW In conjunction with radiology, lateral view with trials of the following consistencies: thin barium liquid (noncarbonated), barium marked pureed, mechanical soft, and regular food consistencies, and a 1cm barium pill. ORAL STAGE Thin Liquids: no evidence of dysphagia . WNL Pureed Foods: no evidence of dysphagia . WNL Mechanical Soft Foods: no evidence of dysphagia . WNL Regular Foods: no evidence of dysphagia . WNL. PHARYNGEAL STAGE Thin Liquid: no evidence of dysphagia WNL. Pureed Food: no evidence of dysphagia WNL. Mechanical Soft Foods: no evidence of dysphagia WNL. Regular Food Consistency: no evidence of dysphagia WNL. Penetration/Aspiration Scale*: Thin liquid: Score of 1= Contrast does not enter airway Puree: Score of 1= Contrast does not enter airway Soft and regular solids: Score of 1= Contrast does not enter airway *(Mck et al. 1996) ESOPHAGEAL STAGE Peristaltic movement appears to be WNL Cervical Esophagus: Materials witnessed clearing from cervical esophagus WNL. Thoracic Esophagus: Materials witnessed clearing from upper/mid/lower thoracic esophagus WNL. DENTON: Non witnessed. Laryngopharyngeal Reflux (LPR) None witnessed. No material reached proximal esophagus or was regurgitated passed UES into pharynx. BARIUM PILL: 1cm barium pill taken with thin liquids. No oral, pharyngeal, or esophageal dysphagia witnessed. SUMMARY Aspiration Risk: Low. No oral or pharyngeal stage dysphagia witnessed. No laryngeal penetration or aspiration witnessed. Pt. reported experiencing no symptoms of dysphagia during evaluation. The patient reports she experiences significant feelings of anxiety and that this may be contributing to swallow problems, specifically regurgitation following meals. 1.Dysphagia Severity Rating Scale (Gramigna, 2006; Elizabeth et. al., 1990): 0 Normal swallow mechanism 2.Diet Modification: Continue with Mechanical Soft foods with precautions ( moist food, small bites, liquids available throughout meals) 3. Patient/DTR /Spouse provided with written and verbal education regarding swallow anatomy and safe swallow recommendations. RECOMMENDATIONS 1. Speech Therapy: recommended to educate patient on swallow safety precautions. POC: Short term goal: In addition to cognitive/linguistic goals as established in POC following initial pt evaluation 1. The patient will recall 2-3 swallow safety strategies to promote maximum swallow function independently by the end of the follow up session. jail goal: 1. Patient will demonstrate increased swallow safety during meals. Thank you for this referral. Please call [phone] to contact the [facility]. Vero Clemons M.S., [facility], Sherry Molina, GSC Physician Signature Date [facility]
[2017-05-25 17:00] VITALS: BP 132/79
[2017-05-25] MEDS: LACTOBACILLUS ACIDOPHILUS TAB PO SCH (17:26)
--- NOTE | 2017-05-25 18:31 | Consultant Pharmacy Review ---
Cafe Manager Review Medication Review Do All Mecications have a Diag: Yes Pneumococcal Vaccine HX Pneumo Vac ([id number]): Yes (01/05/17) HX Pneumo Vac (Pneumovax): Yes (PNA vax 2011, most dewitt [address] Pulido's office ) Comments Regarding the Review Patient is up to date with influenza and pneumococcal vaccines. Annual TSH, periodic LFTs, blood glucose and electrolytes. SHELBY HINSON May 25, 2017 18:31
[2017-05-25] MEDS: SIMVASTATIN 40 MG TAB PO SCH (20:29)
[2017-05-25] MEDS: OXYBUTYNIN CHL XL 5 MG TABCR PO PRN (20:32)
[2017-05-26] MEDS: SALMETEROL/FLUTIC 250/50 1 INH INH SCH ×2 (05:51→17:26)
[2017-05-26] MEDS: LEVOTHYROXINE SOD 0.025 MG TAB PO SCH (06:22)
[2017-05-26] MEDS: LACTOBACILLUS ACIDOPHILUS TAB PO SCH ×2 (07:28→16:49)
[2017-05-26 08:05] VITALS: BP 162/74
[2017-05-26] MEDS: CRANBERRY EXTRACT 1 EACH CAP 1 EACH CAP PO SCH (08:50)
[2017-05-26] MEDS: CEFDINIR 300 MG CAP PO SCH ×2 (08:51→20:17)
[2017-05-26] MEDS: CARVEDILOL 3.125 MG TAB PO SCH ×2 (08:51→20:18)
[2017-05-26] MEDS: FLUoxetine HCL 20 MG CAP PO SCH (08:51)
[2017-05-26] MEDS: predniSONE 20 MG TAB PO SCH (08:51)
[2017-05-26] MEDS: NAPROXEN 500 MG TAB PO PRN (12:11)
[2017-05-26 16:58] VITALS: BP 155/79
[2017-05-26] MEDS: SIMVASTATIN 40 MG TAB PO SCH (20:17)
[2017-05-26] MEDS: OXYBUTYNIN CHL XL 5 MG TABCR PO PRN (20:22)
[2017-05-27] MEDS: SALMETEROL/FLUTIC 250/50 1 INH INH SCH ×2 (05:42→17:17)
[2017-05-27] MEDS: LEVOTHYROXINE SOD 0.025 MG TAB PO SCH (06:42)
[2017-05-27] MEDS: LACTOBACILLUS ACIDOPHILUS TAB PO SCH ×2 (07:35→17:32)
[2017-05-27 08:34] VITALS: BP 163/83
[2017-05-27] MEDS: CARVEDILOL 3.125 MG TAB PO SCH ×2 (09:33→20:56)
[2017-05-27] MEDS: FLUoxetine HCL 20 MG CAP PO SCH (09:33)
[2017-05-27] MEDS: predniSONE 5 MG TAB PO SCH (09:33)
[2017-05-27] MEDS: CRANBERRY EXTRACT 1 EACH CAP 1 EACH CAP PO SCH (09:33)
--- NOTE | 2017-05-27 16:56 | Miscellaneous Provider Note ---
Miscellaneous Provider Note Note Thyroid studies reviewed. Pt. with normal TSH but low T3. The patient's daughter is on combination T4 and T3 therapy for the same issue. Will start low dose Cytomel (2.5mg) in addition to her levothyroxine 25mcg and she will need repeat thyroid studies in 4-6 weeks. SHELBY ADAMES MD May 27, 2017 16:56
[2017-05-27] MEDS: NAPROXEN 500 MG TAB PO PRN (17:37)
[2017-05-27] MEDS: OXYBUTYNIN CHL XL 5 MG TABCR PO PRN (20:56)
[2017-05-27] MEDS: SIMVASTATIN 40 MG TAB PO SCH (20:56)
[2017-05-28] MEDS: SALMETEROL/FLUTIC 250/50 1 INH INH SCH ×2 (05:57→18:18)
[2017-05-28] MEDS: LEVOTHYROXINE SOD 0.025 MG TAB PO SCH (06:20)
[2017-05-28 07:40] VITALS: BP 141/70
[2017-05-28] MEDS: LIOTHYRONINE SODIUM 5 MCG TAB PO SCH (08:19)
[2017-05-28] MEDS: CARVEDILOL 3.125 MG TAB PO SCH ×2 (08:20→20:29)
[2017-05-28] MEDS: CRANBERRY EXTRACT 1 EACH CAP 1 EACH CAP PO SCH (08:20)
[2017-05-28] MEDS: LACTOBACILLUS ACIDOPHILUS TAB PO SCH ×2 (08:20→17:30)
[2017-05-28] MEDS: predniSONE 5 MG TAB PO SCH (08:20)
[2017-05-28] MEDS: FLUoxetine HCL 20 MG CAP PO SCH (08:20)
[2017-05-28 15:20] VITALS: BP 133/68
[2017-05-28] MEDS: OXYBUTYNIN CHL XL 5 MG TABCR PO PRN (20:29)
[2017-05-28] MEDS: NAPROXEN 500 MG TAB PO PRN (20:29)
[2017-05-28] MEDS: SIMVASTATIN 40 MG TAB PO SCH (20:29)
[2017-05-29] MEDS: SALMETEROL/FLUTIC 250/50 1 INH INH SCH ×2 (05:45→18:02)
[2017-05-29] MEDS: LEVOTHYROXINE SOD 0.025 MG TAB PO SCH (06:19)
[2017-05-29 07:30] VITALS: BP 133/69
[2017-05-29] MEDS: LACTOBACILLUS ACIDOPHILUS TAB PO SCH ×2 (07:38→17:27)
[2017-05-29] MEDS: FLUoxetine HCL 20 MG CAP PO SCH (08:56)
[2017-05-29] MEDS: CARVEDILOL 3.125 MG TAB PO SCH ×2 (08:56→20:18)
[2017-05-29] MEDS: LIOTHYRONINE SODIUM 5 MCG TAB PO SCH (08:57)
[2017-05-29] MEDS: CRANBERRY EXTRACT 1 EACH CAP 1 EACH CAP PO SCH (08:57)
[2017-05-29] MEDS: OXYBUTYNIN CHL XL 5 MG TABCR PO PRN ×2 (09:02→20:18)
[2017-05-29 16:00] VITALS: BP 150/66
--- NOTE | 2017-05-29 19:18 | SLP Assessment ---
Supplemental Speech Therapy Evaluation: Pillbox Test Patient Name: Emmie Yee Date of Evaluation: 05-29-2017 Patient :1940, 76yrs Clinician: Vero Clemons M.S., CCC-RAG GRADER, TREMAINE Brown Treatment Dx: Mild Cognitive/Communication Disorder BACKGROUND The patient is a 76yr old female who was admitted to [facility] emergency room on 2017 for cough, fever, and shortness of breath. The patient is currently in the [facility] receiving speech, physical, and occupational therapy services. The patient and her family reported that she has been getting confused more frequently over the years. The patient also worries about her memory. An initial ST evaluation was completed on 05/23/17 with results indicating a need for this supplemental evaluation to assess for independence and safety with medication management. PillBox Test The Pillbox Test is a measure of four executive function factors (described below) through real-time assessment of medication management. Results: The patient generated a total of 52 errors yielding a failing score on the task. A pass/fail designation is determined by 3 or more total errors of any type on the task. Participants are given 5 minutes to complete the task. The patient required 26 minutes to complete the task. Executive Function Factors Purposive Action/Self-Regulation: The patient stopped periodically to report that the pill box was confusing to her and that she needed clarification on its organization. The ST educated the pt that the organizer presented the days from left to right and the times of each day from top to bottom. Planning/Attention: The patient demonstrated deficits in her ability to sustain attention and reason sequentially and hierarchically. The patient demonstrated good reasoning with 1 trial of the pills that she needed to take 3 x daily, saying that she would take her third pill at night in case she was busy throughout the evening. Volition/Inhibition: The patient required a verbal cue to terminate the task. Failure to terminate the task independently resulted in the majority of errors and excessive time requirement. Pt appeared confused as to task instructions and when to terminate the tasks though multiple explanations had been provided. Effective Performance/Self-Monitoring (Hamer-cognition): The patient demonstrated deficits in her ability to monitor herself throughout the task. The ST reminded her that she could check her work by looking inside the pill boxes. The patient did not follow through with this direction. SUMMARY Safety / [place]: Based on her performance on this functional cognitive task, the patient would benefit from some modifications to her home/community environment to function independently. Compensations for mild deficits in memory, attention, and visuospatial deficits are recommended, including moderate /max support from caregivers/family to increase accuracy of completing daily functional tasks especially with medication management to avoid potentially serious errors. Additional time for completion of tasks should be allowed. It is also recommended the patient receive counseling to address her feelings of anxiety. Overall, the patient performed very well and demonstrated the ability to perform functional cognitive tasks accurately with minimal assistance. RECOMMENDATIONS 1. ST 3x/wk PROGNOSIS: Good. The patient receives good support from her spouse. PLAN OF CARE Short Term Goals 1. The patient will demonstrate executive function skills (e.g., planning, organization, monitoring, etc.) to complete IADLs (e.g., organizing medications ) given min assist in 10/10 trials. 2. The patient will perform immediate/short term memory tasks at 90% with min assist for successful communication related to patient independence / safety / social interaction / care and comfort/ medical details 3. The patient will independently recall 2-3 relaxation techniques that she can practice to reduce anxiety and maximize cognitive function. Long-Term Goals 1. Pt will demonstrate safety with diet advanced as appropriate 2. Pt will demonstrate cognitive skills for safety/indep at home and community with modifications as appropriate Thank you for this referral. Please call [phone] (outpatient rehab) or [phone] ( inpatient rehab) to contact the RAG GRADER. Respectfully, Vero Clemons M.S., [facility]-RAG GRADER, Sherry Molina, [facility]ODPamela
[2017-05-29] MEDS: SIMVASTATIN 40 MG TAB PO SCH (20:18)
[2017-05-29] MEDS: NAPROXEN 500 MG TAB PO PRN (20:18)
[2017-05-30] MEDS: LEVOTHYROXINE SOD 0.025 MG TAB PO SCH (05:29)
[2017-05-30] MEDS: SALMETEROL/FLUTIC 250/50 1 INH INH SCH ×2 (05:32→17:38)
[2017-05-30] MEDS: LACTOBACILLUS ACIDOPHILUS TAB PO SCH ×2 (07:23→16:38)
[2017-05-30 07:26] VITALS: BP 133/66
[2017-05-30] MEDS: LIOTHYRONINE SODIUM 5 MCG TAB PO SCH (09:22)
[2017-05-30] MEDS: CARVEDILOL 3.125 MG TAB PO SCH ×2 (09:22→20:19)
[2017-05-30] MEDS: CRANBERRY EXTRACT 1 EACH CAP 1 EACH CAP PO SCH (09:23)
[2017-05-30] MEDS: FLUoxetine HCL 20 MG CAP PO SCH (09:23)
[2017-05-30] MEDS: OXYBUTYNIN CHL XL 5 MG TABCR PO PRN ×2 (09:55→20:19)
--- NOTE | 2017-05-30 16:09 | Medical Nutrition Therapy ---
Nutrition Anthropometrics Height (Inches): 63.00 Height (Calculated Centimeters: 160.257403 Weight (Pounds): 170 Weight (Calculated Kilograms): 77.338 BMI Calculated: 30.15 Saroj Nutrition Score: Adequate Saroj Nutrition Risk Score: 19 Dietary Referral Nutrition Risk Factors: Unplanned Loss >10lbs Nutrition Risk Comment: Has lost 11 pounds since April 03, 2017 Physical Findings Physical Appearance: Obese BMI 30-39 Skin Appearance Skin Appearance: Edema Edema Location Modifier: Both Edema Location: Lower Extremity Type of Edema: Degree of Edema: Gastrointestinal Symptoms GI Symtoms: Change in Bowel Pattern Tube Present: Bowel Sounds: Recent Bowel Pattern: Stool Characteristics: Nutritional Diagnosis Nutritional Risk Acuity 2: Unintended Wt Loss >5%/mo Nutritional Risk Acuity 3: Fair Appetite Past Medical History: HTN, hypothyroidism, atrophy left kidney, CKD-Stage 3 Nutritional Acuity: 2-Moderate Nutrition Diagnosis: Involuntary Wt. Loss Nutrition Etiology: Physiological Causes Nutrition Problem/Etiology/Sym: r/t dx peumonia with decreased appetitite AEB reported 10# wt loss 1 month per pat Energy Requirement: 1680 (M- SJ) Protein Requirement: 80 Fluid Requirement: 2400 (30ml/kg) Diet Type: Diet as Tolerated CAMMY/REG, Lactose Intolerance, Soft Mechanical Food Likes: PLEASE MAKE SURE SHE IS 2 JESUS ENSURES A DAY THANKS Nutrition Monitoring & Eval Nutrition Goals: Eat 50-100% Meal RD Patient Assessment Time: [address] Assessment Type: RD Re-Assessment Patient Nutrition Acuity: 2-Moderate Follow Up Date: Jun 06, 2017 Nutritional Comment: 05/23 Pt on CAMMY and has been eating 50-75% of meals. Pt reports 10# wt loss since Apr. Wt on medical unit was 184#, indicating a 3.8% wt loss. A 10# wt loss in 1 month would be a 5% wt loss. BMI is in class 1 obssity range with slow wt loss acceptable. Pt admitted with pneumonia. Decreased appetite may be contributing to wt loss. Pt is on predisone which may increase appetite. Pt has dx CKD-# BUN 24, Creatnine 1.1 and had improved since admit to Med unit. alb 3.7. Will cont to monitor and encourage intake. 05/30) Pt. is tolerating [facility] soft/lactose free diet well, with no complaints. Po intake 75%-100%. No significant or updated labs. Weight 05/29: 77 kg which is stable. Will continue to monitor and encourage intake. NURIS LEVIN May 30, 2017 10:12
[2017-05-30 16:15] VITALS: BP 136/73
[2017-05-30] MEDS: SIMVASTATIN 40 MG TAB PO SCH (20:19)
[2017-05-31] MEDS: LEVOTHYROXINE SOD 0.025 MG TAB PO SCH (05:35)
[2017-05-31] MEDS: SALMETEROL/FLUTIC 250/50 1 INH INH SCH ×2 (05:40→17:42)
[2017-05-31 07:41] VITALS: BP 143/94
[2017-05-31] MEDS: LACTOBACILLUS ACIDOPHILUS TAB PO SCH ×2 (07:46→17:21)
--- NOTE | 2017-05-31 08:03 | Hospitalist Progress Note ---
Subjective Progress Notes Subjective The patient states she still gets a bit winded with exertion. Overall she feels much better. Physical Exam Vital Signs Date Time Temp Pulse Resp B/P (MAP) Pulse Ox O2 Delivery O2 Flow Rate FiO2 05/31/17 07:41 99.0 70 14 143/94 (110) 94 Room Air 05/31/17 05:35 2.0 Intake and Output 06/01/17 07:00 # Voids 1 # Bowel Movements 1 General Appearance: Alert, Awake, No Acute Distress Neuro: No Gross deficits Eyes: PERRLA Cardiovascular: Regular Rate and Rhythm Respiratory: Clear to Auscultation GI: Soft and Non-Tender Extremities: Warm, Perfused, Other (No edema.) Integumentary: Skin Intact without Lesion / Mass Psych: Appropriate Mood & Affect Assessment and Plan Problems: (1) Asthma exacerbation Status: Acute Assessment & Plan: Lung exam much better today. Continue Advair with prn albuterol nebs. She has weaned off of prednisone. (2) Essential hypertension Status: Chronic Assessment & Plan: Continue carvedilol. (3) Hypothyroidism Status: Chronic Assessment & Plan: TSH normal. T4 normal. Free T3 low. Cytomel was added to levothyroxine, but will switch to [place] thyroid so that she just has to take one pill. She will need a repeat thyroid panel in 4-6 weeks (end of June to mid -July). (4) Hyperlipidemia Status: Chronic Assessment & Plan: Continue simvastatin. (5) GERD (gastroesophageal reflux disease) Status: Chronic Assessment & Plan: Not on treatment currently. (6) CKD (chronic kidney disease) stage 3, GFR 30-59 ml/min Status: Chronic Assessment & Plan: Creatinine 1.1 on most recent check. (7) Mild cognitive impairment Status: Chronic Assessment & Plan: The patient has noted some cognitive trouble for about a year. ST evaluated and found mild cognitive deficit and is working with the patient. Time Spent on Plan of Care: < 30 min SHELBY ADAMES MD May 31, 2017 08:03
[2017-05-31] MEDS ORDERED: FLUT1DIS28 INH (08:07)
[2017-05-31] MEDS ORDERED: THY60 PO (08:07)
[2017-05-31] MEDS ORDERED: RANI-324 PO (08:09)
[2017-05-31] MEDS ORDERED: ALBU8.5H IH (08:16)
[2017-05-31] MEDS ORDERED: CAR3.125 PO (08:24)
--- NOTE | 2017-05-31 08:25 | Hospitalist Depart ---
Discharge Summary Reason for Hosp/Final Diag: (1) Asthma exacerbation Status: Acute Hospital Course & Plan: The patient was admitted with an exacerbation of asthma. CXR on admission was negative. Repeat CXR after hydration remained negative. The patient was treated with nebulizers and steroids. She was treated with azithromycin for possible bronchitis as well. She was started on Advair. She improved but remained weak and was transferred to [facility] for rehabilitation. The steroids were weaned off and her scheduled nebulizers were switched to as needed. She will be discharged with Advair and as needed albuterol MDI. She is to follow up with [facility] in 2 weeks. (2) Essential hypertension Status: Chronic Hospital Course & Plan: She was continued on carvedilol. Her dose was increased to 6.25mg bid due to mild hypertension. Valsartan/HCTZ was discontinued due to renal insufficiency on admission. Her creatinine improved during her hospital stay. Will not restart at discharge. She will follow up with her PCP in 2 weeks. (3) Hypothyroidism Status: Chronic Hospital Course & Plan: TSH normal. T4 normal. Free T3 low. Cytomel was added to levothyroxine initially, but these were switched to [place] thyroid 15mg daily so that she could take just one pill. She will need a repeat thyroid panel in 4-6 weeks (end of June to mid-July). (4) Hyperlipidemia Status: Chronic Hospital Course & Plan: She was continued on simvastatin. (5) GERD (gastroesophageal reflux disease) Status: Chronic Hospital Course & Plan: Not on treatment currently. (6) CKD (chronic kidney disease) stage 3, GFR 30-59 ml/min Status: Chronic Hospital Course & Plan: Creatinine improved to 1.0-1.1. (7) Mild cognitive impairment Status: Chronic Hospital Course & Plan: The patient had noted some cognitive trouble for about a year. Speech therapy evaluated her and found mild cognitive deficit. ST worked with the patient while she was on ECF. She will continue to work with ST through Home Health at discharge. Will stop PPI therapy due to potential association with dementia. Will have her use Zantac prn for dyspepsia. Departure Weight (Pounds): 170 Weight (Ounces): 8.0 Item Value Date Time Thyroid Stimulating Hormone (TSH) 1.05 uIU/ml 05/25/17 0525 Free Thyroxine 1.07 ng/dl 05/25/17 0525 Free Triiodothyronine 1.8 pg/mL L 05/25/17 0525 Condition: Improved Discharge: Home, Home Health PT/OT Follow Up For: PT For Strengthening, OT For ADL's, ST Evaluation and Treat Home Health AVIONICS MECHANIC Follow Up For: ADL Assistance Time Spent: < 30 min Discharge Instructions Home Meds Active Scripts Carvedilol (CARVEDILOL) 3.125 Mg Tab, 6.25 MG PO BID, #120 TAB Prov:SHELBY ADAMES MD 05/31/17 Albuterol Sulfate 90 Mcg/Act (PROAIR HFA 90 MCG/ACT) 8.5 Gm Hfa.aer.ad, 1-2 PUFF IH 3-4XD, #1 INHALER Prov:SHELBY ADAMES MD 05/31/17 Ranitidine Hcl (ZANTAC) 150 Mg Tablet, 150 MG PO BID Y for DYSPEPSIA, #60 TAB Prov:SHELBY ADAMES MD 05/31/17 Thyroid (IT RECRUITER THYROID) 60 Mg Tab, 15 MG PO QDAY, #30 TAB Prov:SHELBY ADAMES MD 05/31/17 Fluticasone/Salmeterol (ADVAIR 250-50 DISKUS) 1 Each Disk.w.dev, 0 EACH INH BIDR , #1 DISK Prov:SHELBY ADAMES MD 05/31/17 Cyanocobalamin (Vitamin B-12) (CYANOCOBALAMIN INJECTION) 1,000 Mcg/1 Ml Vial, 1000 MCG IJ Q2WK, #2 VIAL 0 Refills Prov:ADAN CHASE MD 06/17/15 Simvastatin (SIMVASTATIN) 40 Mg Tablet, 40 MG PO HS, #90 TAB 1 Refill Prov:ADAN CHASE MD 04/06/15 Reported Medications Naproxen Na-Diphenhydramin HCl (Aleve Pm Caplet) 1 Each Tablet, 1 TAB PO QHS for Sleep 05/22/17 Loperamide Hcl (LOPERAMIDE) 2 Mg Capsule, 2 MG PO PRN Y for DIARRHEA, CAPSULE 05/22/17 Fluoxetine Hcl (FLUOXETINE HCL) 20 Mg Capsule, 20 MG PO QDAY, CAPSULE 05/19/17 Oxybutynin Chloride (DITROPAN XL) 10 Mg Tab.er.24, 10 MG PO QDAY Y for URGENCY, #10 TAB 11/30/15 Cranberry Fruit Concentrate (CRANBERRY) 450 Mg Capsule, 2 TAB PO DAILY, CAPSULE 11/27/15 Discontinued Reported Medications Lansoprazole (PREVACID) 30 Mg Capsule.dr, 30 MG PO QDAY Y for DYSPEPSIA, CAP 05/22/17 Valsartan/Hydrochlorothiazide (VALSARTAN-HCTZ 160-25 MG TAB) 1 Each Tablet, 1 EACH PO QHS 05/22/17 Carvedilol (CARVEDILOL) 3.125 Mg Tab, 3.125 MG PO BID, TAB 05/19/17 Discontinued Scripts Levothyroxine Sodium (LEVOTHYROXINE SODIUM) 25 Mcg Tablet, 1 TAB PO QDAY, #90 TAB 3 Refills Prov:ADAN CHASE MD 03/04/15 Follow up Referrals: Family Practice - In Two Weeks @ [facility] Diet: Regular Activity: As Tolerated Copies to: BK OCHOA MD; ELVIE FORTE DO Venous Thromboembolism VTE Risk Physician Assess for VTE Risk: Yes Patient's VTE Risk: Low VTE Diagnostic Test 2 Days Prior to Admit: No Antithrombotics Is Pt On Any Antithrombotics?: No [id number] Certification Face to Face Home Health Certification Institutional Provider conducted the [id number] encounter. Electronic Undersigning Physician Certifies Home Health. I certify that the patient has been under my care and that I had a [id number] encounter that meets the physician pulu-mp-zled encounter requirements with this patient. This patient is home-bound due to safety issues and continues to require assistance with ADL's. I certify that based on my findings, that Nursing, Aides and the following Home Health services are medically necessary: PT, OT, ST Medical Necessity: Nursing, Rehab Date Face to Face Conducted: May 31, 2017 SHELBY ADAMES MD May 31, 2017 08:25
[2017-05-31] MEDS: CRANBERRY EXTRACT 1 EACH CAP 1 EACH CAP PO SCH (09:19)
[2017-05-31] MEDS: THYROID 60 MG TAB PO SCH (09:20)
[2017-05-31] MEDS: OXYBUTYNIN CHL XL 5 MG TABCR PO PRN ×2 (09:20→20:41)
[2017-05-31] MEDS: FLUoxetine HCL 20 MG CAP PO SCH (09:20)
[2017-05-31] MEDS: CARVEDILOL 3.125 MG TAB PO SCH ×2 (09:21→20:41)
[2017-05-31 16:15] VITALS: BP 118/79
[2017-05-31] MEDS: SIMVASTATIN 40 MG TAB PO SCH (20:41)
[2017-06-01] MEDS: SALMETEROL/FLUTIC 250/50 1 INH INH SCH ×2 (05:49→18:33)
[2017-06-01] MEDS: OXYBUTYNIN CHL XL 5 MG TABCR PO PRN (07:43)
[2017-06-01] MEDS: LACTOBACILLUS ACIDOPHILUS TAB PO SCH ×2 (07:43→17:09)
[2017-06-01 09:41] VITALS: BP 139/66
[2017-06-01] MEDS: FLUoxetine HCL 20 MG CAP PO SCH (09:49)
[2017-06-01] MEDS: THYROID 60 MG TAB PO SCH (09:49)
[2017-06-01] MEDS: CRANBERRY EXTRACT 1 EACH CAP 1 EACH CAP PO SCH (09:49)
[2017-06-01] MEDS: CARVEDILOL 3.125 MG TAB PO SCH ×2 (09:50→20:46)
[2017-06-01] MEDS: NAPROXEN 500 MG TAB PO PRN (11:11)
[2017-06-01 17:00] VITALS: BP 149/78
[2017-06-01] MEDS: SIMVASTATIN 40 MG TAB PO SCH (20:46)
[2017-06-02] MEDS: SALMETEROL/FLUTIC 250/50 1 INH INH SCH (05:46)
[2017-06-02 08:00] VITALS: BP 128/67
[2017-06-02] MEDS: LACTOBACILLUS ACIDOPHILUS TAB PO SCH (08:38)
[2017-06-02] MEDS: THYROID 60 MG TAB PO SCH (08:39)
[2017-06-02] MEDS: OXYBUTYNIN CHL XL 5 MG TABCR PO PRN (08:39)
[2017-06-02] MEDS: FLUoxetine HCL 20 MG CAP PO SCH (08:39)
[2017-06-02] MEDS: CARVEDILOL 3.125 MG TAB PO SCH (08:39)
[2017-06-02] MEDS: CRANBERRY EXTRACT 1 EACH CAP 1 EACH CAP PO SCH (08:40)
--- NOTE | 2017-06-02 08:57 | PT ECF NOTE ---
Type of Note: Discharge Summary Primary Medical Diagnosis: Bacterial Pneumonia Physical Therapy Discharge Date: 06/01/17 SUBJECTIVE: Prior Hospitalization: [facility] 05/19/17-05/22/17 Prior Level of Function: Holger with occasional use of SPC, pt reports progressive weakness over the past 4 years Prior Living Status: Multilevel house (7 stairs with railing to access bedroom), Spouse Community Services: No known needs Home Accessibility: 2 stairs with rails to access home from garage Equipment Owned: Rollator, Cane Medical Complications/Past Medical History: See EMR Psychosocial Support: Supportive Pain Scale (0-10): 7/10 R) shoulder and neck OBJECTIVE: Strength: Right Lower Extremity: DF: 5/5 Knee flexion: 4/5 Knee extension: 4/5 Hip flexion: 4/5 Left Lower Extremity: DF: 4/5 Knee flexion: 4/5 Knee extension: 4/5 Hip flexion: 3+/5 ROM: WFL Sensation: WNL Other Neuro findings: none noted Bed Mobility: Holger Transfers: Holger with 4WW Gait: Holger x 300' with 4WW Stairs: 2x4 stairs with Holger Timed Up and Go (>12 seconds indicated increased risk for falls): 15 seconds ASSESSMENT: The patient has progressed well with functional mobility and has reached all PT goals. She is Holger for all mobility with use of 4WW and demonstrates the ability to safely asc/desc stairs with railing. [facility] services have been recommended upon d/c. Problem List/Current Limitations: Decreased activity calin Decreased strength Decreased balance Generalized weakness Short Term Goals: (all goals met) 1: Pt to complete bed mobility with Holger and HOB flat with no use of bed rail 2: Pt to complete transfers with Holger and least restrictive AD from a variety of surfaces 3: Pt to ambulate 300' with Holger and least restrictive AD 4: Pt to asc/desc a full flight of stairs with SBA. 5: Pt to demonstrate a marked improvement in TUG time to indicate a decreased risk of falls. Senior Internal Auditor Goals: Pt to discharge home with good ability to safely asc/desc stairs and safely access home environment (met) Patient Goals: "Get stronger" (met) PLAN: The patient will discharge home with assistance from spouse as well as HHC services and [facility] counseling services. Thank you for this referral. If you have any questions, concerns, or comments about this report or plan, please contact me at . Elizabeth Humphrey PT, DPT WILLIAMD
--- NOTE | 2017-06-02 09:07 | OT ECF NOTE ---
Type of Note: Discharge Note Primary Medical Diagnosis: Generalized weakness s/p pneumonia Occupational Therapy Evaluation Date: 05/23/17 SUBJECTIVE: Prior Hospitalization: [facility] 05/19/17 thru 05/23/17 Prior Level of Function: Independent with all ADLs/IADLs. Pt does not drive, spouse drives and the go to grocery store etc together. Prior, pt ambulated without an AD but owns a 4WW. Prior Living Status: Multilevel house-Will need to complete 6 stairs to access bathroom Spouse Community Services: No known needs Home Accessibility: Stairs with rails Walk-in shower Tub/shower combination Equipment Owned: Rollator, Cane Medical Complications/Past Medical History: h/o asthma, HTN. CKD, urinary incontinence, hematuria, hypothyroidism, hyperlipemia, h/o cervical neck fusion Psychosocial Support: Support spouse "Indra" Pain Scale (0-10): None reported at time of evaluation Hand Dominance: Left OBJECTIVE: Strength: MMT: Right Left Shoulder Flexion WFL WFL Elbow Flexion WFL WFL Wrist Extension WFL WFL Torch Burner WFL WFL (5= normal, 4= good, 3= fair, 2= poor, 1= trace) ROM: Both upper extremities, WFL Functional Transfer: Assistive Device: 4WW Transfer Ability: Modified Independent ADL: Upper body dressing: Assistive device: None Upper body dressing ability: Independent Lower body dressing: Assistive device: None Lower body dressing ability: Independent Toileting: Assistive device: None Toileting ability: Independent Grooming/hygiene: Assistive device: None Grooming ability: Independent Bathing: Assistive device: Shower chair Bathing ability: Modified Independent Standardized Assessment: Nazia Index of Activities of Daily Livin/20 at initial evaluation (). 20/20 at discharge (06/02/17). ASSESSMENT: Emmie presented to [facility] with generalized weakness s/p pneumonia. At [facility], she was independent with ADLs and completed 6 stairs multiple times per day to access her bathroom/bedroom with spouse present. She has met all skilled OT goals and is planning to discharge home with continued HH services. Pt presented with no further questions/concerns for OT at time of discharge. Problem List/Current Limitations: Decreased activity tolerance Generalized weakness Short Term Goals: 1) Pt will be independent UB/LB dressing. GOAL MET 2) Pt will be independent grooming/hygiene. GOAL MET 3) Pt will be independent toilet task. GOAL MET 4) Pt will be independent shower task. GOAL MET 5) Pt will be Mod (I) light meal prep task. GOAL MET 6) Pt Nazia Index of ADLs score will increase by 2 points. GOAL MET Erosion Control Specialist Goals: Return home with services Patient Goals: "Improve my balance and mental capacity" Rehabilitation Prognosis: Good Barriers to Discharge: Medical history, age PLAN: The patient will discharge home with services, [facility] in-home counseling, and continued assist from spouse for IADLs. Thank you for this referral. If you have any questions, concerns, or comments about this report or plan, please contact me at . Elaine Chilel MS, OTR/L Occupational Therapist ROSALIA
== END 2017-06-02 13:40 | disposition home health service (06) | DRG 203 ==
LOC: ECF 13:25
PROVIDERS: ADMIT Internal Medicine; ATTEND Internal Medicine
PROC: 5A09357 Assistance with Respiratory Ventilation, Less than 24 Consecutive Hours, Continuous Positive Airway Pressure (ICD-10-PCS; principal; 2017-05-22)
DX: J45.901 Unspecified asthma with (acute) exacerbation (principal); I12.9 Hypertensive chronic kidney disease with stage 1 through stage 4 chronic kidney disease, or unspecified chronic kidney disease; N18.3 Chronic kidney disease, stage 3 (moderate); K21.9 Gastro-esophageal reflux disease without esophagitis; G31.84 Mild cognitive impairment of uncertain or unknown etiology; E03.9 Hypothyroidism, unspecified; E78.5 Hyperlipidemia, unspecified; R32 Unspecified urinary incontinence; Z88.8 Allergy status to other drugs, medicaments and biological substances; Z90.49 Acquired absence of other specified parts of digestive tract; Z90.710 Acquired absence of both cervix and uterus; Z98.1 Arthrodesis status; Z99.81 Dependence on supplemental oxygen; Z90.5 Acquired absence of kidney
CPT/HCPCS: 36415; 74230; 84439; 84443; 84481; 93005; 97161; 97165; J7512; J7613

== ENCOUNTER → 2017-06-22 | Outpatient (CLI) | payer MEDICARE ==
[2017-05-20 11:36] VITALS: BMI 30.1
[~2017-06-22] MED LIST changes: +ALBU8.5H IH; +AZIT-18 PO; +CEF300 PO; +FLUT1DIS28 INH; +LOPE2CAP88 PO; +NAPR1TAB10 PO; +PRED20TA6 PO; +RANI-324 PO; +THY60 PO; +VALS1TAB6 PO
== END ==
LOC: LAB 10:02
PROVIDERS: ATTEND Physician Assistant Medical
DX: E03.9 Hypothyroidism, unspecified (principal)
CPT/HCPCS: 36415; 84436; 84443; 84480

== ENCOUNTER → 2017-07-14 | Outpatient (REF) | payer MEDICARE ==
[2017-05-20 11:36] VITALS: BMI 30.1
== END ==
LOC: ZZSENDIN 15:29
PROVIDERS: ATTEND Urology
DX: N39.0 Urinary tract infection, site not specified (principal); R82.99 Other abnormal findings in urine
CPT/HCPCS: 81001; 87088

== ENCOUNTER → 2017-07-17 | Outpatient (CLI) | payer MEDICARE ==
[2017-05-20 11:36] VITALS: BMI 30.1
[~2017-07-17] MED LIST changes: +NITR-57 PO; +THYR15TA PO
--- NOTE | 2017-07-17 13:54 | RADIOLOGY IMAGING REPORT ---
FACILITY: [facility] [place] PATIENT NAME: Emmie Schwab : 1940 MR: [id number] V: [id number] EXAM DATE: ORDERING PHYSICIAN: BLANKA DESAI TECHNOLOGIST: Location: [facility] [place] Patient: Emmie Schwab : 1940 Visit/Account:[id number] Date of Sevice: 07/17/2017 CHEST W/O CONTRAST HISTORY: Shortness of breath. Bladder cancer. TECHNIQUE: CT imaging was obtained through the chest without intravenous contrast. One of the [facility] dose optimization techniques was utilized in the performance of this exam: automated exposure co ntrol; adjustment of the mA and/or kv according to patient size; or use of iterative reconstruction t echnique. Specific details can be referenced in the facility's radiology CT exam operational policy. CONTRAST: None COMPARISON: Chest x-ray 05/20/2017 FINDINGS: CHEST: Lower neck: Negative. Vessels: Mild arterial calcifications. Heart and pericardium: Negative. Mediastinum/hilum/lymph nodes: Negative. Lungs/pleura: No consolidation. No concerning pulmonary nodule. Minimal platelike atelectasis or sca r within the base of the right middle lobe and lingula. No pleural effusion. Upper abdomen: Cholecystectomy. Bones/soft tissues: Negative. IMPRESSION: 1. Minimal platelike atelectasis or scar within the base of the right middle lobe and lingula. No con cerning pulmonary nodule, pleural effusion or consolidation. Report Dictated By: Isael Noonan MD at 07/17/2017 1:45 PM Report E-Signed By: Isael Noonan MD at 07/17/2017 1:49 PM WSN:[id number]
== END ==
LOC: CT 11:04
PROVIDERS: ATTEND Internal Medicine
DX: I25.10 Atherosclerotic heart disease of native coronary artery without angina pectoris (principal); R91.8 Other nonspecific abnormal finding of lung field
CPT/HCPCS: 71250

== ENCOUNTER → 2017-07-17 | Outpatient (REF) | payer MEDICARE ==
[2017-05-20 11:36] VITALS: BMI 30.1
== END ==
LOC: ZZSENDIN 20:07
PROVIDERS: ATTEND Physician Assistant
DX: N39.0 Urinary tract infection, site not specified (principal)
CPT/HCPCS: 87088

== ENCOUNTER 2017-07-18 04:20 | Inpatient (IN) | payer MEDICARE ==
[~2017-07-18] VITALS: Ht 165.1 cm; Wt 75.4 kg
[~2017-07-18 04:20] MED LIST changes: -NITR-57 PO; -RANI-324 PO; +RANI-366 PO; -THYR15TA PO
[2017-07-18] MEDS ORDERED: ALBUTEROL/IPRATROPIUM 3 ML NEB NEB ONE (04:25)
[2017-07-18] MEDS ORDERED: NITR-57 PO (04:43)
[2017-07-18 04:45] LABS: PLATELET COUNT, AUTOMATED 269 K/uL (150-450)
--- NOTE | 2017-07-18 05:22 | EKG ---
FACILITY: PATIENT NAME: SHARMILA WEBSTER : [id number] MR: [id number] V: [id number] EXAM DATE: ORDERING PHYSICIAN: VAHE KIRKPATRICK TECHNOLOGIST: LORRAINE Test Reason : SOB Blood Pressure : / mmHG Vent. Rate : 086 BPM Atrial Rate : 086 BPM P-R Int : 158 ms QRS Dur : 082 ms QT Int : 366 ms P-R-T Axes : 070 049 047 degrees QTc Int : 437 ms Normal sinus rhythm Low voltage QRS Anteroseptal infarction, old. Electrical interference and baseline variation preclude strict reading. When compared with ECG of 22-MAY-2017 20:09, premature supraventricular complexes are no longer present Non-specific change in ST segment in Inferior leads Nonspecific T wave abnormality now evident in Inferior leads Confirmed by MARIA TERESA MIRZA ([id number]) on 07/18/2017 6:42:24 AM Referred By: Confirmed By:MARIA TERESA MIRZA
[2017-07-18] MEDS ORDERED: methylPREDNIS SUCC 125 MG/2ML IVP ONE (06:05)
--- NOTE | 2017-07-18 06:10 | RADIOLOGY IMAGING REPORT ---
FACILITY: [facility] PATIENT NAME: Emmie Schwab : 1940 MR: [id number] V: [id number] EXAM DATE: ORDERING PHYSICIAN: VAHE KIRKPATRICK TECHNOLOGIST: Location: [facility] Patient: Emmie Schwab : 1940 Visit/Account:[id number] Date of Sevice: 07/18/2017 CHEST PA AND LATERAL 07/18/2017 5:04 AM. INDICATION: RAD shortness of breath COMPARISON: 05/20/2017 radiograph, 07/17/2017 CT. FINDINGS: Lungs are well-expanded. The lungs are clear. No pneumothorax or pleural effusion. Pulmo nary vasculature is unremarkable. Heart size is normal. Incompletely imaged cervical fusion hardwar e. IMPRESSION: No acute abnormality or significant change. Report Dictated By: Gene Sahu MD at 07/18/2017 6:04 AM Report E-Signed By: Gene Sahu MD at 07/18/2017 6:06 AM WSN:[id number]
--- NOTE | 2017-07-18 06:19 | ER Report ---
History and Physical Time Seen By MD: 04:23 Hx. of Stated Complaint: PATIENT HAVING SHORTNESS OF BREATH THAT STARTED ABOUT 0100, PATIENT FEELS LIKE SHE CAN'T CATCH HER BREATH. PATIENT HAS A COUGH THAT STARTED TONIGHT WELL. (VAHE KIRKPATRICK DO) HPI/ROS CHIEF COMPLAINT: Shortness of breath HISTORY OF PRESENT ILLNESS: 76-year-old female presents ambulatory to the ER complaining of severe shortness of breath. She woke up approximately midnight with difficulty breathing. She notes productive cough of clear sputum. She does have a history of asthma. She has a recent admission. 05/19 - for hypoxia and asthma exacerbation. She had a diagnosis of pneumonia, but there was no obvious infiltrate seen on chest x-ray. She was treated empirically. She required extended stay on ECF for 9 days due to weakness. Patient was seen yesterday urgent care for some lower abdominal pain and diagnosed with urinary tract infection. She was started on Macrobid. Tonight she presents with increasing abdominal pain in the upper abdomen. She also had an outpatient CT scan yesterday of her chest. There are notable infiltrates or atelectasis in the right middle lobe. She presents with hypoxia from home, 78% on room air. Patient normally wears 2 L with CPap at night. Patient thinks she has pneumonia again. REVIEW OF SYSTEMS: Respiratory: As above Cardiovascular: No chest pain, no palpitations. Gastrointestinal: As above Musculoskeletal: No back pain. (VAHE KIRKPATRICK DO) Allergies: Coded Allergies: ciprofloxacin (Verified Allergy, Severe, blisters, 07/18/17) codeine (Verified Allergy, Intermediate, HALLUCINATIONS, 11/27/15) adhesive tape (Verified Allergy, Mild, RASH, 01/05/15) nitrofurantoin (Verified Adverse Reaction, Intermediate, nausea, vomiting , stomach pain, 07/18/17) Home Meds Active Scripts Carvedilol (CARVEDILOL) 3.125 Mg Tab, 6.25 MG PO BID, #120 TAB Prov:SHELBY ADAMES MD 05/31/17 Albuterol Sulfate 90 Mcg/Act (PROAIR HFA 90 MCG/ACT) 8.5 Gm Hfa.aer.ad, 1-2 PUFF IH 3-4XD, #1 INHALER Prov:SHELBY ADAMES MD 05/31/17 Ranitidine Hcl (ZANTAC) 150 Mg Tablet, 150 MG PO BID Y for DYSPEPSIA, #60 TAB Prov:SHELBY ADAMES MD 05/31/17 Fluticasone/Salmeterol (ADVAIR 250-50 DISKUS) 1 Each Disk.w.dev, 0 EACH INH BIDR , #1 DISK Prov:SHELBY ADAMES MD 05/31/17 Cyanocobalamin (Vitamin B-12) (CYANOCOBALAMIN INJECTION) 1,000 Mcg/1 Ml Vial, 1000 MCG IJ Q2WK, #2 VIAL 0 Refills Prov:ADAN CHASE MD 06/17/15 Simvastatin (SIMVASTATIN) 40 Mg Tablet, 40 MG PO HS, #90 TAB 1 Refill Prov:ADAN CHASE MD 04/06/15 Reported Medications Thyroid,Pork (Thyroid) 15 Mg Tablet, 15 MG PO DAILY 07/18/17 Nitrofurantoin Monohyd/M-Cryst (NITROFURANTOIN MONO-MCR 100 MG) 100 Mg Capsule, 1 CAP PO BID 07/18/17 Naproxen Na-Diphenhydramin HCl (Aleve Pm Caplet) 1 Each Tablet, 1 TAB PO QHS for Sleep 05/22/17 Loperamide Hcl (LOPERAMIDE) 2 Mg Capsule, 2 MG PO PRN Y for DIARRHEA, CAPSULE 05/22/17 Fluoxetine Hcl (FLUOXETINE HCL) 20 Mg Capsule, 20 MG PO QDAY, CAPSULE 05/19/17 Oxybutynin Chloride (DITROPAN XL) 10 Mg Tab.er.24, 10 MG PO QDAY Y for URGENCY, #10 TAB 11/30/15 Cranberry Fruit Concentrate (CRANBERRY) 450 Mg Capsule, 2 TAB PO DAILY, CAPSULE 11/27/15 Discontinued Scripts Thyroid (SENIOR STORAGE ADMINISTRATOR THYROID) 60 Mg Tab, 15 MG PO QDAY, #30 TAB Prov:SHELBY ADAMES MD 05/31/17 Past Medical/Surgical History Discharge summary from last admission 3 weeks ago (1) Asthma exacerbation Status: Acute Hospital Course & Plan: The patient was admitted with an exacerbation of asthma. CXR on admission was negative. Repeat CXR after hydration remained negative. The patient was treated with nebulizers and steroids. She was treated with azithromycin for possible bronchitis as well. She was started on Advair. She improved but remained weak and was transferred to [facility] for rehabilitation. The steroids were weaned off and her scheduled nebulizers were switched to as needed. She will be discharged with Advair and as needed albuterol MDI. She is to follow up with [facility] in 2 weeks. (2) Essential hypertension Status: Chronic Hospital Course & Plan: She was continued on carvedilol. Her dose was increased to 6.25mg bid due to mild hypertension. Valsartan/HCTZ was discontinued due to renal insufficiency on admission. Her creatinine improved during her hospital stay. Will not restart at discharge. She will follow up with her PCP in 2 weeks. (3) Hypothyroidism Status: Chronic Hospital Course & Plan: TSH normal. T4 normal. Free T3 low. Cytomel was added to levothyroxine initially, but these were switched to [place] thyroid 15mg daily so that she could take just one pill. She will need a repeat thyroid panel in 4-6 weeks (end of June to mid-July). (4) Hyperlipidemia Status: Chronic Hospital Course & Plan: She was continued on simvastatin. (5) GERD (gastroesophageal reflux disease) Status: Chronic Hospital Course & Plan: Not on treatment currently. (6) CKD (chronic kidney disease) stage 3, GFR 30-59 ml/min only one kidney Status: Chronic Hospital Course & Plan: Creatinine improved to 1.0-1.1. (7) Mild cognitive impairment Status: Chronic Hospital Course & Plan: The patient had noted some cognitive trouble for about a year. Speech therapy evaluated her and found mild cognitive deficit. ST worked with the patient while she was on ECF. She will continue to work with ST through Home Health at discharge. Will stop PPI therapy due to potential association with dementia. Will have her use Zantac prn for dyspepsia. (VAHE KIRKPATRICK DO) Hx Smoking: No Smoking Status: Never Smoker Exposure to Second Hand Smoke?: Yes (As child growing up) Hx Substance Use Disorder: No Hx Alcohol Use: Yes (VAHE KIRKPATRICK DO) Constitutional Vital Sign - Last 24 Hours 07/18/17 07/18/17 07/18/17 07/18/17 04:23 04:32 04:35 04:40 Temp 98.1 Pulse 86 80 Resp 24 32 B/P (MAP) 158/88 158/88 (111) Pulse Ox 78 92 O2 Delivery Room Air O2 Flow Rate 5.0 07/18/17 07/18/17 07/18/17 07/18/17 04:50 05:00 05:00 05:00 Pulse 87 81 Resp 37 16 B/P (MAP) 137/69 (91) Pulse Ox 91 94 O2 Delivery Oxy Mask O2 Flow Rate 6.0 07/18/17 07/18/17 07/18/17 07/18/17 05:05 05:10 05:25 05:40 Pulse 83 ? Resp 26 Pulse Ox 94 07/18/17 07/18/17 07/18/17 07/18/17 05:55 06:00 06:10 06:25 Pulse ??? 85 87 Resp 26 18 B/P (MAP) 129/74 (92) Pulse Ox 94 95 07/18/17 07/18/17 07/18/17 07/18/17 06:30 06:55 07:00 07:30 Pulse 90 91 Resp 14 22 B/P (MAP) 139/77 (97) 124/65 (84) 136/61 (86) Pulse Ox 95 93 07/18/17 07/18/17 07/18/17 08:00 08:30 09:00 Pulse 95 100 102 Resp 14 29 25 B/P (MAP) 137/67 (90) 132/63 (86) 107/61 (76) Pulse Ox 94 94 91 (ASHLIE LOMELI MD) Physical Exam General Appearance: The patient is alert, has no immediate need for airway protection and no current signs of toxicity. Obvious air hunger, shortness of breath, room air pulse ox 78%. Afebrile HEENT:: Pupils equal and round no injection. Oropharynx without redness or exudate, mucous. Membranes are moist Respiratory: Chest is non tender,, bibasilar faint rails with expiratory wheezing Cardiac: regular rate and rhythm Gastrointestinal: Abdomen is soft and non tender, no masses, bowel sounds normal. Musculoskeletal: Neck: Neck is supple and non tender. No JVD, no lymphadenopathy Extremities have full range of motion and are non tender. No edema, no calf tenderness Skin: No rashes or lesions. DIFFERENTIAL DIAGNOSIS: After history and physical exam differential diagnosis was considered for shortness of breath including but not limited to pulmonary infectious process, COPD, asthma, pulmonary embolus and congestive heart failure. (CASIMIRO,VAHE M DO) Medical Decision Making Data Points Result Diagram: 07/18/17 0435 07/18/17 0435 Laboratory Hematology Test 07/18/17 00:00 07/18/17 04:35 07/18/17 05:54 D-Dimer Quantitative (PE/DVT) 1.59 ug/ml (0-0.50) B-Type Natriuretic Peptide 191 pg/ml (0-100) Amylase Level 36 U/L (0-110) Lipase 107 U/L (23-300) Red Blood Count 4.54 M/uL (4.17-5.56) Mean Corpuscular Volume 91.9 fL (80.0-96.0) Mean Corpuscular Hemoglobin 31.2 pg (26.0-33.0) Mean Corpuscular Hemoglobin Concent 33.9 g/dL (32.0-36.0) Red Cell Distribution Width 14.7 % (11.5-14.5) Mean Platelet Volume 7.9 fL (7.2-11.1) Neutrophils (%) (Auto) 91.8 % (39.4-72.5) Lymphocytes (%) (Auto) 5.9 % (17.6-49.6) Monocytes (%) (Auto) 1.7 % (4.1-12.4) Eosinophils (%) (Auto) 0.2 % (0.4-6.7) Basophils (%) (Auto) 0.4 % (0.3-1.4) Nucleated RBC Relative Count (auto) 0.0 /100WBC Neutrophils # (Auto) 10.5 K/uL (2.0-7.4) Lymphocytes # (Auto) 0.7 K/uL (1.3-3.6) Monocytes # (Auto) 0.2 K/uL (0.3-1.0) Eosinophils # (Auto) 0.0 K/uL (0.0-0.5) Basophils # (Auto) 0.0 K/uL (0.0-0.1) Nucleated RBC Absolute Count (auto) 0.00 K/uL Sodium Level 140 mmol/L (137-145) Potassium Level 4.2 mmol/L (3.5-5.0) Chloride Level 104 mmol/L (98-107) Carbon Dioxide Level 22 mmol/L (22-31) Blood Urea Nitrogen 21 mg/dl (7-18) Creatinine 1.30 mg/dl (0.52-1.04) Glomerular Filtration Rate Calc 39.6 Random Glucose 108 mg/dl (75-110) Lactate 1.5 mmol/L (0.7-2.1) Calcium Level 10.0 mg/dl (8.4-10.2) Total Bilirubin 0.7 mg/dl (0.2-1.3) Aspartate Amino Transf (AST/SGOT) 27 U/L (0-35) Alanine Aminotransferase (ALT/SGPT) 32 U/L (0-56) Alkaline Phosphatase 72 U/L (0-126) Troponin I < 0.012 ng/ml Total Protein 7.2 gm/dl (6.3-8.2) Albumin 4.5 g/dl (3.5-5.0) Urine Color Yellow Urine Clarity Clear Urine pH 5.0 pH (4.8-9.5) Urine Specific [place] 1.012 Urine Protein Negative mg/dL (NEGATIVE) Urine Glucose (UA) Negative mg/dL (NEGATIVE) Urine Ketones 20 mg/dL (NEGATIVE) Urine Blood Negative (NEGATIVE) Urine Nitrite Negative (NEGATIVE) Urine Bilirubin Negative (NEGATIVE) Urine Urobilinogen Negative mg/dL (0.2-1.9) Urine Leukocyte Esterase Small (NEGATIVE) Urine RBC 1 /HPF (0-2/HPF) Urine WBC 4 /HPF (0-5/HPF) Urine Squamous Epithelial Cells Many /LPF (</=FEW) Urine Bacteria Few /HPF (NONE-FEW) Urine Mucus None /HPF (NONE-FEW) Chemistry Test 07/18/17 00:00 07/18/17 04:35 07/18/17 05:54 D-Dimer Quantitative (PE/DVT) 1.59 ug/ml (0-0.50) B-Type Natriuretic Peptide 191 pg/ml (0-100) Amylase Level 36 U/L (0-110) Lipase 107 U/L (23-300) White Blood Count 11.4 k/uL (4.5-11.0) Red Blood Count 4.54 M/uL (4.17-5.56) Hemoglobin 14.1 g/dL (12.0-16.0) Hematocrit 41.7 % (34.0-47.0) Mean Corpuscular Volume 91.9 fL (80.0-96.0) Mean Corpuscular Hemoglobin 31.2 pg (26.0-33.0) Mean Corpuscular Hemoglobin Concent 33.9 g/dL (32.0-36.0) Red Cell Distribution Width 14.7 % (11.5-14.5) Platelet Count 269 K/uL (150-450) Mean Platelet Volume 7.9 fL (7.2-11.1) Neutrophils (%) (Auto) 91.8 % (39.4-72.5) Lymphocytes (%) (Auto) 5.9 % (17.6-49.6) Monocytes (%) (Auto) 1.7 % (4.1-12.4) Eosinophils (%) (Auto) 0.2 % (0.4-6.7) Basophils (%) (Auto) 0.4 % (0.3-1.4) Nucleated RBC Relative Count (auto) 0.0 /100WBC Neutrophils # (Auto) 10.5 K/uL (2.0-7.4) Lymphocytes # (Auto) 0.7 K/uL (1.3-3.6) Monocytes # (Auto) 0.2 K/uL (0.3-1.0) Eosinophils # (Auto) 0.0 K/uL (0.0-0.5) Basophils # (Auto) 0.0 K/uL (0.0-0.1) Nucleated RBC Absolute Count (auto) 0.00 K/uL Glomerular Filtration Rate Calc 39.6 Lactate 1.5 mmol/L (0.7-2.1) Calcium Level 10.0 mg/dl (8.4-10.2) Total Bilirubin 0.7 mg/dl (0.2-1.3) Aspartate Amino Transf (AST/SGOT) 27 U/L (0-35) Alanine Aminotransferase (ALT/SGPT) 32 U/L (0-56) Alkaline Phosphatase 72 U/L (0-126) Troponin I < 0.012 ng/ml Total Protein 7.2 gm/dl (6.3-8.2) Albumin 4.5 g/dl (3.5-5.0) Urine Color Yellow Urine Clarity Clear Urine pH 5.0 pH (4.8-9.5) Urine Specific [place] 1.012 Urine Protein Negative mg/dL (NEGATIVE) Urine Glucose (UA) Negative mg/dL (NEGATIVE) Urine Ketones 20 mg/dL (NEGATIVE) Urine Blood Negative (NEGATIVE) Urine Nitrite Negative (NEGATIVE) Urine Bilirubin Negative (NEGATIVE) Urine Urobilinogen Negative mg/dL (0.2-1.9) Urine Leukocyte Esterase Small (NEGATIVE) Urine RBC 1 /HPF (0-2/HPF) Urine WBC 4 /HPF (0-5/HPF) Urine Squamous Epithelial Cells Many /LPF (</=FEW) Urine Bacteria Few /HPF (NONE-FEW) Urine Mucus None /HPF (NONE-FEW) Coagulation Test 07/18/17 00:00 D-Dimer Quantitative (PE/DVT) 1.59 ug/ml Urinalysis Test 07/18/17 05:54 Urine Color Yellow Urine Clarity Clear Urine pH 5.0 pH (4.8-9.5) Urine Specific [place] 1.012 Urine Protein Negative mg/dL (NEGATIVE) Urine Glucose (UA) Negative mg/dL (NEGATIVE) Urine Ketones 20 mg/dL (NEGATIVE) Urine Blood Negative (NEGATIVE) Urine Nitrite Negative (NEGATIVE) Urine Bilirubin Negative (NEGATIVE) Urine Urobilinogen Negative mg/dL (0.2-1.9) Urine Leukocyte Esterase Small (NEGATIVE) Urine RBC 1 /HPF (0-2/HPF) Urine WBC 4 /HPF (0-5/HPF) Urine Squamous Epithelial Cells Many /LPF (</=FEW) Urine Bacteria Few /HPF (NONE-FEW) Urine Mucus None /HPF (NONE-FEW) (ASHLIE LOMELI MD) EKG/Imaging EKG Interpretation 12 lead EK, O2 Rhythm: normal sinus rhythm [place]: normal QRS: Low voltage QRS ST segments: normal, nonspecific inferior ST changes on comparison to previous EKG dated Imaging X-ray: Two-view chest x-ray. was obtained. I viewed the images myself on the PACS system. My interpretation of the images is: No infiltrate, no effusion, normal mediastinum, comparison to previous chest x-ray dated 05/20/17, no significant change The radiologist interpretation had no clinically significant variation from this interpretation. Results: CT scan of the CT chest without contrast was obtained. The results of the study are CHEST W/O CONTRAST HISTORY: Shortness of breath. Bladder cancer. TECHNIQUE: CT imaging was obtained through the chest without intravenous contrast. One of the following dose optimization techniques was utilized in the performance of this exam: automated exposure control; adjustment of the mA and/ or kv according to patient size; or use of iterative reconstruction technique. Specific details can be referenced in the facility's radiology CT exam operational policy. CONTRAST: None COMPARISON: Chest x-ray 05/20/2017 FINDINGS: CHEST: Lower neck: Negative. Vessels: Mild arterial calcifications. Heart and pericardium: Negative. Mediastinum/hilum/lymph nodes: Negative. Lungs/pleura: No consolidation. No concerning pulmonary nodule. Minimal platelike atelectasis or scar within the base of the right middle lobe and lingula. No pleural effusion. Upper abdomen: Cholecystectomy. Bones/soft tissues: Negative. IMPRESSION: 1. Minimal platelike atelectasis or scar within the base of the right middle lobe and lingula. No concerning pulmonary nodule, pleural effusion or consolidation. The study was read by the radiologist. I viewed the images myself on the PACS system. (VAHE KIRKPATRICK DO) ED Course/Re-evaluation Clinical Indication for ER IV: IV Access ED Course Patient was admitted to an examination room. H&P was done. The differential diagnoses was considered. Patient with acute shortness of breath since midnight. She has a productive cough. She's had no fever. She states it feels like she has pneumonia again. She was admitted approximately 2 months ago with similar presentation. However, her chest x-ray and no infiltrate. There is a CT scan documenting an infiltrate or atelectasis noted yesterday. Her white blood cell count is mildly elevated. Her troponin and EKG are unremarkable. Her d-dimer is elevated. Her renal function does not look like she will tolerate contrast. She may be a candidate for VQ scan. Blood cultures were drawn. Patient was treated with IV Solu-Medrol, fentanyl for her abdominal pain, Zofran for nausea and a DuoNeb. Care was turned over at shift change to Dr. Lomeli to contact hospitalist for admit. Decision to Disposition Date: Jul 18, 2017 Decision to Disposition Time: 06:23 (VAHE KIRKPATRICK DO) ED Course This is a 76-year-old female who presented to the emergency department with worsening hypoxia. She was admitted to [facility] in late May for an asthma exacerbation. She's been seen by an outside provider who ordered a noncontrast CT scan of her chest yesterday which was unremarkable. She presented today with O2 sats in the 70s. She has not had any procedures as of late to suggest a methemaglobinemia. A CTA of the chest was performed to evaluate for a PE. The patient does not have a PE. She will be admitted to the hospitalist service for further evaluation of her hypoxia. Decision to Disposition Date: Jul 18, 2017 Decision to Disposition Time: 09:55 (ASHLIE LOMELI MD) Depart Departure Latest Vital Signs Vital Signs Date Time Temp Pulse Resp B/P (MAP) Pulse Ox O2 Delivery O2 Flow Rate FiO2 07/18/17 09:00 102 25 107/61 (76) 91 07/18/17 05:00 Oxy Mask 6.0 07/18/17 04:23 98.1 (ASHLIE LOMELI MD) Impression: Primary Impression: Hypoxia Additional Impressions: Asthma exacerbation Essential hypertension CKD (chronic kidney disease) stage 3, GFR 30-59 ml/min Atrophy of left kidney Condition: Improved Disposition: Admitted from ER Referrals: ELVIE FORTE DO (PCP) Problem Qualifiers Additional Impressions: Asthma exacerbation Asthma severity: unspecified severity Asthma persistence: unspecified Qualified Codes: J45.901 - Unspecified asthma with (acute) exacerbation VAHE KIRKPATRICK DO Jul 18, 2017 06:19 ASHLIE LOMELI MD Jul 18, 2017 09:55
[2017-07-18] MEDS ORDERED: fentaNYL CITR 100 MCG/2 ML AMP IVP ONE (06:30)
[2017-07-18] MEDS ORDERED: ONDANSETRON 4 MG/2 ML VIAL IVP ONE (06:30)
[2017-07-18] MEDS ORDERED: NS(*) 0.9% 500 ML BAG 500 ML IV ONE (07:40)
[2017-07-18] MEDS ORDERED: NS 0.9% 150 ML BAG 150 ML ONE (08:43)
[2017-07-18] MEDS ORDERED: IOPAMIDOL 76% 75 ML INFUS BTL 75 ML ONE (08:43)
--- NOTE | 2017-07-18 09:20 | RADIOLOGY IMAGING REPORT ---
[place] [facility] [place]: Emmie Schwab : 1940 MR: [id number] V: [id number] EXAM DATE: ORDERING PHYSICIAN: ASHLIE LOMELI TECHNOLOGIST: Location: [facility] [place] Patient: Emmie Schwab : 1940 Visit/Account:[id number] Date of Sevice: 07/18/2017 CTA CHEST with contrast (PULM ANG) HISTORY: Hypoxia. Elevated d-dimer. ADDITIONAL HISTORY: None. TECHNIQUE: CTA chest with contrast. 3D coronal slab MIPs and 2D reconstructions in the coronal and sagittal planes were also created. One of the following dose optimization techniques was utilized in the performance of this exam: automated exposure control; adjustment of the mA and/or kv according to patient size; or use of iterative reconstruction technique. Specific details can be referenced in [facility] facility's radiology CT exam operational policy. CONTRAST: 75 mL of Isovue-370 COMPARISON: Chest x-ray earlier the same day. CT chest without contrast 07/17/2017 FINDINGS: Vessels: No acute filling defect within the pulmonary arteries. Thoracic aorta is normal caliber. Lower neck: Negative. Heart and pericardium: Negative Mediastinum/hilum/lymph nodes: Negative. Lungs/pleura: Mild increasing areas of atelectasis. No pleural effusion. Stable 3 mm noncalcified right lower lobe pulmonary nodule. Visualized upper abdomen: Cholecystectomy. Left adrenal gland thickening. Bones/soft tissues: Negative. Other findings: None significant IMPRESSION: 1. Negative examination for acute pulmonary embolism. 2. Mild increasing subsegmental atelectasis. Report Dictated By: Isael Noonan MD at 07/18/2017 9:08 AM Report E-Signed By: Isael Noonan MD at 07/18/2017 9:16 AM WSN:[id number]
[2017-07-18 10:46] VITALS: BP 129/56
[2017-07-18] MEDS ORDERED: THYROID 60 MG TAB PO SCH ×2 (10:56→13:00)
[2017-07-18] MEDS ORDERED: ALBUTEROL 2.5 MG/3 ML NEB NEB PRN (11:00)
[2017-07-18] MEDS ORDERED: ALBUTEROL SULFATE 90 MCG/ACT 8.5 GM HNH INH PRN (11:00)
[2017-07-18] MEDS ORDERED: OXYBUTYNIN CHL XL 5 MG TABCR PO PRN (11:50)
[2017-07-18] MEDS: ACETAMINOPHEN 325 MG TAB PO PRN ×2 (11:53→21:11)
--- NOTE | 2017-07-18 11:53 | History & Physical ---
History of Present Illness Chief Complaint Shortness of breath History of Present Illness She presented to the emergency department with shortness of breath, cough, and fever. She reports these symptoms started last night. She checked her oxygen level last night and she was 78% room air. History Problems: (1) Essential hypertension Status: Chronic (2) Hyperlipidemia Status: Chronic (3) CKD (chronic kidney disease) stage 3, GFR 30-59 ml/min Status: Chronic (4) Atrophy of left kidney Status: Chronic (5) Hypothyroidism Status: Chronic Home Meds Active Scripts Carvedilol (CARVEDILOL) 3.125 Mg Tab, 6.25 MG PO BID, #120 TAB Prov:SHELBY ADAMES MD 05/31/17 Albuterol Sulfate 90 Mcg/Act (PROAIR HFA 90 MCG/ACT) 8.5 Gm Hfa.aer.ad, 1-2 PUFF IH 3-4XD, #1 INHALER Prov:SHELBY ADAMES MD 05/31/17 Ranitidine Hcl (ZANTAC) 150 Mg Tablet, 150 MG PO BID Y for DYSPEPSIA, #60 TAB Prov:SHELBY ADAMES MD 05/31/17 Thyroid (COMPRESSOR STATION CHIEF ENGINEER THYROID) 60 Mg Tab, 15 MG PO QDAY, #30 TAB Prov:SHELBY ADAMES MD 05/31/17 Fluticasone/Salmeterol (ADVAIR 250-50 DISKUS) 1 Each Disk.w.dev, 0 EACH INH BIDR , #1 DISK Prov:SHELBY ADAMES MD 05/31/17 Cyanocobalamin (Vitamin B-12) (CYANOCOBALAMIN INJECTION) 1,000 Mcg/1 Ml Vial, 1000 MCG IJ Q2WK, #2 VIAL 0 Refills Prov:ADAN CHASE MD 06/17/15 Simvastatin (SIMVASTATIN) 40 Mg Tablet, 40 MG PO HS, #90 TAB 1 Refill Prov:ADAN CHASE MD 04/06/15 Reported Medications Nitrofurantoin Monohyd/M-Cryst (NITROFURANTOIN MONO-MCR 100 MG) 100 Mg Capsule, 1 CAP PO QDAY 07/18/17 Naproxen Na-Diphenhydramin HCl (Aleve Pm Caplet) 1 Each Tablet, 1 TAB PO QHS for Sleep 05/22/17 Loperamide Hcl (LOPERAMIDE) 2 Mg Capsule, 2 MG PO PRN Y for DIARRHEA, CAPSULE 05/22/17 Fluoxetine Hcl (FLUOXETINE HCL) 20 Mg Capsule, 20 MG PO QDAY, CAPSULE 05/19/17 Oxybutynin Chloride (DITROPAN XL) 10 Mg Tab.er.24, 10 MG PO QDAY Y for URGENCY, #10 TAB 11/30/15 Cranberry Fruit Concentrate (CRANBERRY) 450 Mg Capsule, 2 TAB PO DAILY, CAPSULE 11/27/15 Allergies: Coded Allergies: codeine (Verified Allergy, Intermediate, HALLUCINATIONS, 11/27/15) adhesive tape (Verified Allergy, Mild, RASH, 01/05/15) ciprofloxacin (Verified Allergy, Unknown, 05/19/17) Patient History: FH: COPD (chronic obstructive pulmonary disease) MOTHER, , Age:89 FH: diabetes mellitus FATHER ( from heart disease and diabetes), , Age:81 FH: heart disease FATHER ( from heart disease and diabetes), , Age:81 MOTHER, , Age:89 Hx Smoking: No Smoking Status: Never Smoker Exposure to Second Hand Smoke?: Yes (As child growing up) Caffeine Intake: Coffee Caffeine/Cups Per Day: 1 cup coffee daily Hx Alcohol Use: Yes Hx Substance Use Disorder: No Social Drug Use: Never Review of Systems All Systems Reviewed/Normal: Yes, Except as Noted Constitutional: Fever Respiratory: Shortness of Breath, Cough Exam Vital Signs Vital Signs Date Time Temp Pulse Resp B/P (MAP) Pulse Ox O2 Delivery O2 Flow Rate FiO2 07/18/17 10:46 100.2 99 20 129/56 (80) 92 Nasal Cannula 2.0 General Appearance: Alert, Awake, No Acute Distress, Afebrile Neuro: No Gross deficits Cardiovascular: Regular Rate and Rhythm Respiratory: No Respiratory Distress, Other (Diminshed lung sound in bilateral bases) GI: Abd Soft and Non-Tender Extremities: No Edema Psych: Alert & Oriented X3, Appropriate Mood & Affect Medical Decision Making Data Points Result Diagram: 07/18/17 0435 07/18/17 0435 Item Value Date Time Arterial Blood pH 7.47 H 07/18/17 1010 Arterial Blood Partial Pressure CO2 28 mmHg L 07/18/17 1010 Arterial Blood Partial Pressure O2 61 mmHg 07/18/17 1010 Arterial Blood HCO3 20 mmol/L 07/18/17 1010 Arterial Blood Oxygen Saturation 93 % 07/18/17 1010 Troponin I < 0.012 ng/ml 07/18/17 0435 D-Dimer Quantitative (PE/DVT) 1.59 ug/ml H 07/18/17 0000 EKG / Imaging Imaging CTA Chest and Chest X-ray reviewed. Pre-Admit Course ED Medications IV steroids given to pt prior to admission Assessment and Plan Problems: (1) COPD exacerbation Status: Acute Assessment & Plan: She did present with hypoxia, fever, and cough. Her WBC count is 11.4. Her CTA shows mild increasing subsegmental atelectasis, but no infiltrate. We will give her IV steroids today and switch to oral steroids tomorrow. (2) Essential hypertension Status: Chronic Assessment & Plan: She is on chronic treatment with Carvedilol. (3) CKD (chronic kidney disease) stage 3, GFR 30-59 ml/min Status: Chronic Assessment & Plan: She takes one Aleve daily, which I have stopped secondary to kidney function. She has only one kidney. (4) Hyperlipidemia Status: Chronic Assessment & Plan: She is on chronic treatment with Simvastatin. (5) Hypothyroidism Status: Chronic Assessment & Plan: She is on chronic treatment with [place] Thyroid. (6) Urinary incontinence Status: Chronic Assessment & Plan: She is on treatment with Ditropan. This is followed by Dr. Hernández. 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
[2017-07-18] MEDS ORDERED: THYR15TA PO (15:48)
[2017-07-18 15:50] VITALS: BP 105/52
[2017-07-18] MEDS: SALMETEROL/FLUTIC 250/50 1 INH INH SCH (17:01)
[2017-07-18] MEDS: methylPREDNIS SUCC 125 MG/2ML IVP SCH ×2 (17:23→21:02)
[2017-07-18 17:38] VITALS: BP 107/71
[2017-07-18 19:20] VITALS: BP 111/63
[2017-07-18] MEDS ORDERED: SIMVASTATIN 40 MG TAB PO SCH (21:00)
[2017-07-18] MEDS: CARVEDILOL 6.25 MG TAB PO SCH (21:01)
[2017-07-19 03:22] VITALS: BP 121/69
[2017-07-19] MEDS: SALMETEROL/FLUTIC 250/50 1 INH INH SCH (05:46)
[2017-07-19 06:06] LABS: PLATELET COUNT, AUTOMATED 222 K/uL (150-450)
[2017-07-19 07:03] VITALS: BP 104/52
[2017-07-19] MEDS: ENOXAPARIN 40 MG/0.4ML SYR SC SCH ×2 (08:20→09:20)
[2017-07-19] MEDS: CARVEDILOL 6.25 MG TAB PO SCH (08:20)
[2017-07-19] MEDS: methylPREDNIS SUCC 125 MG/2ML IVP SCH (08:21)
[2017-07-19] MEDS ORDERED: predniSONE 20 MG TAB PO SCH (09:00)
[2017-07-19] MEDS ORDERED: THYROID 60 MG TAB PO SCH (09:00)
[2017-07-19] MEDS ORDERED: FLUoxetine HCL 20 MG CAP PO SCH (09:00)
[2017-07-19] MEDS ORDERED: CAR3.125 PO (09:42)
[2017-07-19] MEDS ORDERED: PRED20TA6 PO (09:44)
--- NOTE | 2017-07-19 09:52 | Hospitalist Depart ---
Discharge Summary Reason for Hosp/Final Diag: (1) COPD exacerbation Status: Acute Hospital Course & Plan: She did present with hypoxia, fever, and cough. Her WBC count was 11.4 upon admission. Her WBC increased today secondary to steroid use. Her CTA showed mild increasing subsegmental atelectasis, but no infiltrate. She received IV steroids and was switched to oral steroids today. She is not requiring any oxygen this morning. She will follow up with Dr. Forte within one week. (2) Essential hypertension Status: Chronic Hospital Course & Plan: She is on chronic treatment with Carvedilol. Her systolic blood pressure was in the 80's with 6.25 mg BID, she will be decreased to 3.125 mg daily. She will follow up with Dr. Forte regarding her blood pressure within the next week. (3) CKD (chronic kidney disease) stage 3, GFR 30-59 ml/min Status: Chronic Hospital Course & Plan: She takes one Aleve daily, which I have stopped secondary to kidney function. She has only one kidney. Creatinine today is decreased to 1.1 from 1.3 upon admission. (4) Hyperlipidemia Status: Chronic Hospital Course & Plan: She is on chronic treatment with Simvastatin. (5) Hypothyroidism Status: Chronic Hospital Course & Plan: She is on chronic treatment with [place] Thyroid. (6) Urinary incontinence Status: Chronic Hospital Course & Plan: She is on treatment with Ditropan. This is followed by Dr. Hernández. Departure Latest Vital Signs Vital Signs 07/19/17 07/19/17 07/19/17 07:03 07:05 09:20 Temp 99.0 Pulse 73 Resp 18 B/P (MAP) 104/52 (69) Pulse Ox 93 O2 Delivery Room Air O2 Flow Rate 1.0 Weight (Pounds): 166 Weight (Ounces): 4.0 Result Diagram: 07/19/17 0543 07/19/17 0543 Condition: Improved Discharge: Home, Home Health PT/OT Follow Up For: PT For Strengthening, ST Evaluation and Treat Home Health RN Follow Up For: Nursing Assessment Home Health TANK ERECTOR Follow Up For: ADL Assistance Discharge Instructions Home Meds Active Scripts Carvedilol (CARVEDILOL) 3.125 Mg Tab, 6.25 MG PO BID, #120 TAB Prov:SHELBY ADAMES MD 05/31/17 Albuterol Sulfate 90 Mcg/Act (PROAIR HFA 90 MCG/ACT) 8.5 Gm Hfa.aer.ad, 1-2 PUFF IH 3-4XD, #1 INHALER Prov:SHELBY ADAMES MD 05/31/17 Ranitidine Hcl (ZANTAC) 150 Mg Tablet, 150 MG PO BID Y for DYSPEPSIA, #60 TAB Prov:SHELBY ADAMES MD 05/31/17 Fluticasone/Salmeterol (ADVAIR 250-50 DISKUS) 1 Each Disk.w.dev, 0 EACH INH BIDR , #1 DISK Prov:SHELBY ADAMES MD 05/31/17 Cyanocobalamin (Vitamin B-12) (CYANOCOBALAMIN INJECTION) 1,000 Mcg/1 Ml Vial, 1000 MCG IJ Q2WK, #2 VIAL 0 Refills Prov:ADAN CHASE MD 06/17/15 Simvastatin (SIMVASTATIN) 40 Mg Tablet, 40 MG PO HS, #90 TAB 1 Refill Prov:ADAN CHASE MD 04/06/15 Reported Medications Carvedilol (CARVEDILOL) 3.125 Mg Tab, 3.125 MG PO BID, TAB 07/19/17 Thyroid,Pork (Thyroid) 15 Mg Tablet, 15 MG PO DAILY 07/18/17 Nitrofurantoin Monohyd/M-Cryst (NITROFURANTOIN MONO-MCR 100 MG) 100 Mg Capsule, 1 CAP PO BID 07/18/17 Naproxen Na-Diphenhydramin HCl (Aleve Pm Caplet) 1 Each Tablet, 1 TAB PO QHS for Sleep 05/22/17 Loperamide Hcl (LOPERAMIDE) 2 Mg Capsule, 2 MG PO PRN Y for DIARRHEA, CAPSULE 05/22/17 Fluoxetine Hcl (FLUOXETINE HCL) 20 Mg Capsule, 20 MG PO QDAY, CAPSULE 05/19/17 Oxybutynin Chloride (DITROPAN XL) 10 Mg Tab.er.24, 10 MG PO QDAY Y for URGENCY, #10 TAB 11/30/15 Cranberry Fruit Concentrate (CRANBERRY) 450 Mg Capsule, 2 TAB PO DAILY, CAPSULE 11/27/15 Discontinued Scripts Thyroid (CODING FILE CLERK THYROID) 60 Mg Tab, 15 MG PO QDAY, #30 TAB Prov:SHELBY ADAMES MD 05/31/17 Diet: Regular Activity: As Tolerated Copies to: ELVIE FORTE DO Venous Thromboembolism Antithrombotics Is Pt On Any Antithrombotics?: Yes [id number] Certification Face to Face Home Health Certification Institutional Provider conducted the ulal-ql-phbo encounter. Electronic Undersigning Physician Certifies Home Health. I certify that the patient has been under my care and that I had a [id number] encounter that meets the physician [id number] encounter requirements with this patient. This patient is home-bound due to safety issues and continues to require assistance with ADL's. I certify that based on my findings, that Nursing, Aides and the following Home Health services are medically necessary. Medical Necessity: Nursing, Rehab Date Face to Face Conducted: Jul 19, 2017 JESSI PETTIT Jul 19, 2017 09:52
[2017-07-19 10:09] VITALS: Ht 165.1 cm; Wt 75.4 kg
[2017-07-20] MEDS ORDERED: INFLUENZA VIRUS VAC 0.5 ML SYR IM ONLY ONE (11:00)
== END 2017-07-19 15:15 | disposition home health service (06) | DRG 191 ==
LOC: ER 04:25 → MED 10:13
PROVIDERS: ADMIT Internal Medicine; ATTEND Internal Medicine
PROC: 5A09357 Assistance with Respiratory Ventilation, Less than 24 Consecutive Hours, Continuous Positive Airway Pressure (ICD-10-PCS; principal; 2017-07-18)
DX: J44.1 Chronic obstructive pulmonary disease with (acute) exacerbation (principal); N39.0 Urinary tract infection, site not specified; I12.9 Hypertensive chronic kidney disease with stage 1 through stage 4 chronic kidney disease, or unspecified chronic kidney disease; N18.3 Chronic kidney disease, stage 3 (moderate); R09.02 Hypoxemia; E78.5 Hyperlipidemia, unspecified; E03.9 Hypothyroidism, unspecified; R32 Unspecified urinary incontinence; T44.7X5A Adverse effect of beta-adrenoreceptor antagonists, initial encounter; Z99.81 Dependence on supplemental oxygen; Z88.8 Allergy status to other drugs, medicaments and biological substances; Z90.49 Acquired absence of other specified parts of digestive tract; Z90.710 Acquired absence of both cervix and uterus
CPT/HCPCS: 36415; 36600; 71046; 71275; 81001; 82040; 82150; 82247; 82310; 82374; 82375; 82435; 82565; 82803; 82947; 83605; 83690; 83880; 84075; 84132; 84155; 84295; 84450; 84460; 84484; 84520; 85025; 85379; 87040; 93005; 94640; 99285; J1650; J2405; J2930; J3010; J7040; J7512; Q9967

== ENCOUNTER → 2017-09-11 | Outpatient (CLI) | payer MEDICARE ==
[2017-07-19 10:09] VITALS: BMI 27.6
[~2017-09-11] MED LIST changes: +NITR-57 PO; +THYR15TA PO
== END ==
LOC: LAB 14:50
PROVIDERS: ATTEND Urology
DX: N39.0 Urinary tract infection, site not specified (principal); R82.79 Other abnormal findings on microbiological examination of urine
CPT/HCPCS: 81001; 87088

== ENCOUNTER → 2017-09-15 | Outpatient (REF) | payer MEDICARE ==
[2017-07-19 10:09] VITALS: BMI 27.6
== END ==
LOC: ZZSENDIN 14:13
PROVIDERS: ATTEND Urology
DX: N39.0 Urinary tract infection, site not specified (principal); R10.84 Generalized abdominal pain; N18.9 Chronic kidney disease, unspecified; Z85.51 Personal history of malignant neoplasm of bladder
CPT/HCPCS: 87088

== ENCOUNTER → 2017-09-28 | Outpatient (CLI) | payer MEDICARE ==
[2017-07-19 10:09] VITALS: BMI 27.6
== END ==
LOC: LAB 10:58
PROVIDERS: ATTEND Physician Assistant Medical
DX: E03.9 Hypothyroidism, unspecified (principal)
CPT/HCPCS: 84443

== ENCOUNTER → 2017-09-28 | Outpatient (CLI) | payer MEDICARE ==
[2017-07-19 10:09] VITALS: BMI 27.6
[2017-09-28 11:40] LABS: PLATELET COUNT, AUTOMATED 257 K/uL (150-450)
== END ==
LOC: LAB 11:09
PROVIDERS: ATTEND Nurse Practitioner Family
DX: R19.7 Diarrhea, unspecified (principal); K92.1 Melena; K21.9 Gastro-esophageal reflux disease without esophagitis; R13.19 Other dysphagia; I10 Essential (primary) hypertension; G47.30 Sleep apnea, unspecified; I45.9 Conduction disorder, unspecified
CPT/HCPCS: 36415; 82040; 82150; 82247; 82310; 82374; 82435; 82565; 82947; 83690; 84075; 84132; 84155; 84295; 84450; 84460; 84520; 85025

== ENCOUNTER → 2017-12-07 | Outpatient (CLI) | payer MEDICARE ==
[2017-07-19 10:09] VITALS: BMI 27.6
[2017-12-07 13:35] LABS: PLATELET COUNT, AUTOMATED 296 K/uL (150-450)
== END ==
LOC: LAB 13:21
PROVIDERS: ATTEND Nurse Practitioner Family
DX: K92.1 Melena (principal); R19.7 Diarrhea, unspecified; K21.9 Gastro-esophageal reflux disease without esophagitis; R13.10 Dysphagia, unspecified; I10 Essential (primary) hypertension; G47.30 Sleep apnea, unspecified; I45.0 Right fascicular block
CPT/HCPCS: 36415; 82040; 82150; 82247; 82310; 82374; 82435; 82565; 82947; 83690; 84075; 84132; 84155; 84295; 84450; 84460; 84520; 85025

== ENCOUNTER 2018-01-04 00:11 | Day surgery (SDC) | payer MEDICARE ==
[2017-07-19 10:09] VITALS: Ht 165.1 cm; Wt 69.9 kg
[~2018-01-04] VITALS: Ht 165.1 cm; Wt 69.9 kg
[~2018-01-04 00:11] MED LIST changes: +AMLO-111 PO; -AMLO-96 PO; +LEVO50TA86 PO; +OLME1TAB; +OLME1TAB57 PO
[2018-01-04 08:21] VITALS: BP 127/70
[2018-01-04] MEDS ORDERED: LIDOCAINE/SOD BICARB 8.4% SYR ID ONE (08:35)
[2018-01-04] MEDS ORDERED: NORMOSOL R SOLN(*) 1000 ML BAG 1,000 ML IV PRN (08:35)
[2018-01-04 11:03] VITALS: BP 116/65
[2018-01-04 11:15] VITALS: BP 104/69
[2018-01-04 11:30] VITALS: BP 103/88
[2018-01-04 12:30] VITALS: BP 102/67
[2018-01-04 12:33] VITALS: BP 108/46
[2018-01-04] MEDS ORDERED: PROPOFOL EMUL(*) 10MG/ML 20 ML 60 ML ONE (16:38)
== END 2018-01-04 13:10 | disposition home health service (06) ==
LOC: OR 00:11
PROVIDERS: ATTEND Internal Medicine Gastroenterology
DX: K64.8 Other hemorrhoids (principal); K57.30 Diverticulosis of large intestine without perforation or abscess without bleeding; K29.70 Gastritis, unspecified, without bleeding
CPT/HCPCS: 00811; 43239; 43248; 45380; 88305; J2704; 88313; 88344

== ENCOUNTER → 2018-04-01 | Outpatient (CLI) | payer MEDICARE ==
[2017-07-19 10:09] VITALS: BMI 27.6
[2018-04-01 14:16] LABS: PLATELET COUNT, AUTOMATED 296 K/uL (150-450)
== END ==
LOC: LAB 13:43
PROVIDERS: ATTEND Internal Medicine Nephrology
DX: N18.3 Chronic kidney disease, stage 3 (moderate) (principal); I10 Essential (primary) hypertension
CPT/HCPCS: 36415; 81001; 82040; 82310; 82374; 82435; 82565; 82570; 82947; 84100; 84132; 84156; 84295; 84520; 85025

== ENCOUNTER → 2018-04-05 | Outpatient (CLI) | payer MEDICARE ==
[2017-07-19 10:09] VITALS: BMI 27.6
--- NOTE | 2018-04-05 16:47 | RADIOLOGY IMAGING REPORT ---
[place] [facility] [place] NAME: Emmie Schwab : 1940 MR: [id number] V: [id number] EXAM DATE: ORDERING PHYSICIAN: TONI PRETTY TECHNOLOGIST: Location: [facility] [place] Patient: Emmie Schwab : 1940 Visit/Account:[id number] Date of Sevice: 04/05/2018 KIDNEYS EXAMINATION: Renal ultrasound. History: Solitary right kidney, dysuria, dehydration, UTIs, history of transitional cell carcinoma COMPARISON STUDIES: CT and pelvis August 23, 2016 FINDINGS: Kidneys: Right kidney- 10.4 x 4.7 x 4.4 cm Left kidney- left kidney is not imaged in the severely atrophic on the prior CT from August 23, 2016 Hydronephrosis: none Resistive index on the right 0.74 Bladder: Prevoid volume 104 mL. Post void residual 12 mL. Right ureteral jet was present Abdominal aorta and IVC: Aorta and IVC are patent by Doppler ultrasound. IMPRESSION: Solitary right kidney appears unremarkable. Left kidney was not imaged although was severely atrophic on the prior CT from August 23, 2016 Report Dictated By: Nela Tony MD at 04/05/2018 4:38 PM Report E-Signed By: Nela Tony MD at 04/05/2018 4:41 PM MEMON:SAUD
== END ==
LOC: US 14:31
PROVIDERS: ATTEND Urology
DX: N39.0 Urinary tract infection, site not specified (principal); N18.9 Chronic kidney disease, unspecified; N28.1 Cyst of kidney, acquired; Z85.51 Personal history of malignant neoplasm of bladder
CPT/HCPCS: 76705; 81001; 87088

== ENCOUNTER → 2018-04-06 | Outpatient (REF) | payer MEDICARE ==
[2017-07-19 10:09] VITALS: BMI 27.6
== END ==
LOC: ZZSENDIN 14:00
PROVIDERS: ATTEND Urology
DX: C67.9 Malignant neoplasm of bladder, unspecified (principal)
CPT/HCPCS: 88108

== ENCOUNTER → 2018-07-25 | Outpatient (CLI) | payer MEDICARE ==
[2017-07-19 10:09] VITALS: BMI 27.6
[~2018-07-25] MED LIST changes: -AMLO-111 PO; +AMLO-125 PO
[2018-07-25 12:19] LABS: LDL CHOLESTEROL 63 mg/dl
== END ==
LOC: LAB 11:29
PROVIDERS: ATTEND Internal Medicine Cardiovascular Disease
DX: I12.9 Hypertensive chronic kidney disease with stage 1 through stage 4 chronic kidney disease, or unspecified chronic kidney disease (principal); E78.00 Pure hypercholesterolemia, unspecified; N18.3 Chronic kidney disease, stage 3 (moderate)
CPT/HCPCS: 36415; 82310; 82374; 82435; 82465; 82565; 82947; 83718; 84132; 84295; 84478; 84520; 85027

== ENCOUNTER → 2018-08-03 | Outpatient (CLI) | payer MEDICARE ==
[2017-07-19 10:09] VITALS: BMI 27.6
[~2018-08-03] MED LIST changes: +PANT40TA65 PO
--- NOTE | 2018-08-03 10:02 | RADIOLOGY IMAGING REPORT ---
FACILITY: [facility] PATIENT NAME: Emmie Schwab : 1940 MR: [id number] V: [id number] EXAM DATE: ORDERING PHYSICIAN: BK LEUNG TECHNOLOGIST: Location: [facility] - [place] Patient: Emmie Schwab : 1940 Visit/Account:[id number] Date of Sevice: 08/03/2018 CT ABDOMEN PELVIS W/O CON HISTORY: Abdominal wall bulge TECHNIQUE: Axial images acquired through the abdomen/pelvis. Coronal and sagittal reformatting also performed. No IV contrast administered.Dose Lowering Technique One of the following dose optimization techniques was utilized in the performance of this exam: Autom ated exposure control; adjustment of the mA and/or kV according to the patient's size; or use of an i terative reconstruction technique. Specific details can be referenced in the facility's radiology C T exam operational policy. COMPARISON: August 23, 2016 2 mm FINDINGS: Visualized lung bases: 2 mm calcified granuloma left lower lobe Hepatobiliary: Surgical changes from a cholecystectomy Spleen: Negative. Adrenals: Negative. Pancreas: Negative. Kidneys ureters and bladder: Again noted is partial malrotation of the right kidney. There is no dena dence of hydronephrosis or hydroureter. Left kidney is severely atrophic and contains several puncta te calcifications similar to the prior study Genitalia: Uterus not identified GI: There is a surgical anastomosis in the sigmoid colon. . There is moderate gaseous distention of the second and proximal third portions of the duodenum. A similar finding was present on the prior study however. Vessels/spaces/nodes: There mild atherosclerotic calcifications throughout the abdomen and pelvis Bones/soft tissues: There spondylotic changes of the lumbar spine. A defect in the medial right rudy ac bone appears relatively unchanged likely a donor site from a prior bone graft. There is atrophy a nd fatty replacement of the right abdominis rectus muscle. No demonstration of an inguinal hernia or ventral hernia Additional findings: None pertinent. IMPRESSION: No demonstration of a ventral or inguinal hernia. 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 Additional chronic findings as described Report Dictated By: Nela Tony MD at 08/03/2018 9:47 AM Report E-Signed By: Nela Tony MD at 08/03/2018 9:58 AM WSN:[email or web address]
== END ==
LOC: CT 00:21
PROVIDERS: ATTEND Surgery
DX: Q63.2 Ectopic kidney (principal); N26.1 Atrophy of kidney (terminal); Z90.49 Acquired absence of other specified parts of digestive tract; Z90.711 Acquired absence of uterus with remaining cervical stump
CPT/HCPCS: 74176

== ENCOUNTER → 2018-08-16 | Outpatient (CLI) | payer MEDICARE ==
[2017-07-19 10:09] VITALS: BMI 27.6
[~2018-08-16] MED LIST changes: +BARIUM SULFATE 176 GM BTL PO ONE; +BARIUM SULFATE 340 GM POWD ONE; +HYDR-2966 PO
--- NOTE | 2018-08-16 17:13 | RADIOLOGY IMAGING REPORT ---
[place] [facility] [place] NAME: Emmie Schwab : 1940 MR: [id number] V: [id number] EXAM DATE: ORDERING PHYSICIAN: BK LEUNG TECHNOLOGIST: Location: [facility] - [place] Patient: Emmie Schwab : 1940 Visit/Account:[id number] Date of Sevice: 08/16/2018 Exam type: XR UPPER GI SERIES W/O KUB History: Epigastric abdominal pain, bloating, acid reflux Comparison: None. Findings: A double contrast upper GI series was performed with thick and thin barium and air contrast. There i s a mild irregularity in the upper third of the thoracic esophagus just below the thoracic inlet. Th ere is a moderate narrowing in the distal esophagus in location of the mucosal irregularity although barium tablet did pass into the stomach. A large amount of gastroesophageal reflux was observed. No abnormality of the stomach duodenal bulb or duodenal C-loop are seen the fluoroscopy dose area produ ct was 1044.95 micro-Loera per meter squared IMPRESSION: 1. There Is a mild irregularity in the upper third of the thoracic esophagus just below the thoracic inlet. There is moderate narrowing of the distal esophagus where there appear to be mucosal irregularity. A barium tablet did pass into the stomach. . Endoscopy is recommended for further evaluation. A large amount of gastroesophageal reflux was observed Report Dictated By: Nela Tony MD at 08/16/2018 5:04 PM Report E-Signed By: Nela Tony MD at 08/16/2018 5:10 PM WSN:[email or web address]
== END ==
LOC: RAD 00:03
PROVIDERS: ATTEND Surgery
DX: K21.9 Gastro-esophageal reflux disease without esophagitis (principal); K22.8 Other specified diseases of esophagus
CPT/HCPCS: 74240

== ENCOUNTER → 2018-10-03 | Outpatient (CLI) | payer MEDICARE ==
[2017-07-19 10:09] VITALS: BMI 27.6
[~2018-10-03] MED LIST changes: -BARIUM SULFATE 176 GM BTL PO ONE; -BARIUM SULFATE 340 GM POWD ONE; -RANI-366 PO; +RANI-54 PO
[2018-10-03 13:39] LABS: PLATELET COUNT, AUTOMATED 282 K/uL (150-450)
== END ==
LOC: LAB 13:09
PROVIDERS: ATTEND Internal Medicine Nephrology
DX: I12.9 Hypertensive chronic kidney disease with stage 1 through stage 4 chronic kidney disease, or unspecified chronic kidney disease (principal); N18.3 Chronic kidney disease, stage 3 (moderate); Q60.0 Renal agenesis, unilateral
CPT/HCPCS: 36415; 81001; 82040; 82310; 82374; 82435; 82565; 82570; 82947; 84100; 84132; 84156; 84295; 84520; 85025

== ENCOUNTER → 2018-10-25 | Outpatient (CLI) | payer MEDICARE ==
[2017-07-19 10:09] VITALS: BMI 27.6
== END ==
LOC: LAB 13:43
PROVIDERS: ATTEND Internal Medicine Nephrology
DX: N39.0 Urinary tract infection, site not specified (principal); R30.0 Dysuria; R35.0 Frequency of micturition; B96.20 Unspecified Escherichia coli [E. coli] as the cause of diseases classified elsewhere
CPT/HCPCS: 81001; 87077; 87088; 87186